=== PATIENT | female | born 1950 | race Caucasian/White ===

== ENCOUNTER 2020-10-02 10:22 | Outpatient (REF) | payer MEDICARE, SELFPAY | END 2020-10-02 10:23 | disposition home or self-care (01) | LOC: HO.HMGCLDS 10:22 | PROVIDERS: PCP Family Medicine; Visit Provider Internal Medicine | DX: Z20.828 Contact with and (suspected) exposure to other viral communicable diseases (principal) | CPT/HCPCS: C9803; U0003 ==

== ENCOUNTER 2020-12-18 10:06 | Outpatient (REF) | payer MEDICARE, SELFPAY | END 2020-12-18 10:07 | disposition home or self-care (01) | LOC: HO.LAB 10:06 | PROVIDERS: Visit Provider Internal Medicine | DX: Z20.822 Contact with and (suspected) exposure to COVID-19 (principal) | CPT/HCPCS: 36415; C9803; U0003; U0005 ==

== ENCOUNTER 2021-02-01 11:06 | Outpatient (REF) | payer MEDICARE, SELFPAY ==
[2021-02-01 14:29] LABS: Alanine Aminotransferase 12 U/L (0-31); Anion Gap 10 (12-20); Aspartate Amino Transferase 15 U/L (5-31); Blood Urea Nitrogen 13 mg/dL (9-16); Carbon Dioxide 31 mmol/L (22-29); Chloride 104 mmol/L (96-108); Estimated Glomerular Filt Rate > 60; Potassium 4.2 mmol/L (3.3-5.1); Sodium 141 mmol/L (135-145)
== END 2021-02-01 11:07 | disposition home or self-care (01) ==
LOC: HO.10HDL 11:06
PROVIDERS: Visit Provider Family Medicine
DX: I10 Essential (primary) hypertension (principal); E21.3 Hyperparathyroidism, unspecified; R11.0 Nausea
CPT/HCPCS: 36415; 80051; 82310; 82565; 84450; 84460; 84520

== ENCOUNTER 2021-04-04 12:23 | Day surgery (SDC) | payer MEDICARE, SELFPAY ==
--- NOTE | 2021-03-28 10:41 | CONS_ITS ---
DATE OF SERVICE: 04/04/2021 HISTORY OF PRESENT ILLNESS: This is a 70-year-old white female well known to me who was getting colonoscopy next week. This is a preprocedural consultation because of her many medical problems. This woman has a history of high cholesterol, depression, hyperparathyroidism (status post parathyroidectomy in 2011), irritable bowel syndrome with diarrhea, history of occasional urinary retention and urinary tract infections, GERD, cricopharyngeal achalasia, mild, and osteoporosis. More recently, she has had significant problems, which are of concern to everybody. In 2016, she had intracerebral bleed. The workup was negative, we could not figure out a reason. In 2017, she has seizure and she has been on Lamictal since that time. In 2018 and twice in 2019, she had again intracerebral bleeds, these were small, but accumulative in terms of their effect. Full Neurology evaluation revealed that the patient probably has cerebral amyloid angiopathy, which is an untreatable phenomenon. She is off all anticoagulants obviously. She has not allowed to take any nonsteroidals or aspirin and so far since April of 2020, she has had no recurrent bleeds. She sees Dr. Ortega in [place] as her neurologist. She has had unfortunately residual effects from these injuries with some cognitive decline. Most notably, short term memory loss, word finding problems, integrating her thought processes, and more recently inability to recognize colors and faces. In speaking with the patient, frustration is apparent. She has been on medication for depression, which is probably appropriate and MRIs and CTs have been reviewed by me. 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 She has recently seen Dr. Ortega ( I have reviewed his note). Her medications now are amlodipine, Prevacid, sertraline, Lamictal and vitamins. She has had some GERD even with Prevacid and she was advised on this. There was some question of peripheral vision loss, however I was unable to demonstrate that. Rarely, she gets headaches. She has had no recent seizures and she gets occasional lightheaded spells without falling. The biggest complaint is GERD with PPIs. Her sleep is poor. She has had no melena, chest pain, shortness of breath, or syncope. Rare dysphagia. Her urinary system is that she does get some occasional urge incontinence, but is not a major problem. Her other main complaint is she is off balance. Unfortunately, she has had no recent falls. PHYSICAL EXAMINATION: On examination, we find a pleasant white female, in no distress. Blood pressure 130/76, pulse 80, and weight 148. Conjunctivae pink. Sclerae white. Mucous membranes are moist. Neck veins are flat. Carotids are 2-. No bruits. Lungs are clear. Heart, normal sinus rhythm, rate 80, no murmurs. Abdomen is soft and nontender. There is no edema. Mild venous insufficiency. No peripheral vascular disease. Neuro examination shows peripheral vision seems okay. She has no nystagmus. EOMI. PERRL. She does have significant heel to toe abnormalities, although negative Romberg. She definitely demonstrates some ataxia. Extremities reveal no obvious motor or sensory reflex changes. Cognitive status is as mentioned before. DIAGNOSES: 1. Secondary encephalomalacia. 2. Gastroesophageal reflux disease. 3. Ataxia. 4. Status post epilepsy. 5. Cerebral amyloid angiopathy. 6. History of achalasia, although there are no aspiration problems. 7. Hypertension. 8. Depression. 9. High cholesterol. 10. Status post parathyroidectomy. PLAN: From medical standpoint, the patient has been relatively stable. She has had some ongoing cerebral issues. I do not believe these are contraindications to colonoscopy. I would keep her anesthesia as light as possible. She recently had lytes, BUN and creatinine, calcium, and SGPT, which were all within normal limits. I will follow her post procedure as needed. Thank you very much. MD SERGIO Arias/VIRGIL / [id number] [facility]ITAL[facility]
[2021-03-29 11:29] VITALS: BMI 26.7
--- NOTE | 2021-04-02 08:57 | P.CONAN_ITS ---
Documented by User: Medina Belinda 04/02/21 08:59 HPI - Anesthesia Eval Consult details Narrative: 71yo F for Upper Endoscopy and Colonoscopy Per T/C with neuro - OK to proceed with endo procedures. Had recent brain MRI with stable imaging. No speical considerations regarding anesthesia PCP cleared for procedures - states to keep anesthesia light [facility] Past Medical History Medical History (Updated 04/04/21 @ 14:01 by Elana Sims) Achalasia Ataxia Cerebral amyloid angiopathy Depression Elevated cholesterol GERD (gastroesophageal reflux disease) HTN (hypertension) Hx of irritable bowel syndrome Hx of osteoporosis Seizures Short-term memory loss Surgical History Surgical History (Updated 03/28/21 @ 15:24 by Zaida Jenkins) H/O colonoscopy History of esophagogastroduodenoscopy (EGD) Hx of parathyroidectomy Social History Social History Smoking Status: Former smoker Use of substances other than those prescribed or required for medical reasons: No Are you DNR?: No Advance Directives Information Provided: No Recently lost weight without trying: No Eating poorly because of decreased appetite: No Nutrition Risks: No Nutritional Risk Meds Allergies Allergy/AdvReac Type Severity Reaction Status Date / Time codeine [CODEINE] Allergy Intermediate DELIRIUM Verified 04/04/21 12:33 Home Medications Medication Instructions Recorded Confirmed Last Taken Type amlodipine 1 tab PO DAILY 03/29/21 03/29/21 04/04/21 07:00 History lamotrigine 1 tab PO BID 03/29/21 04/04/21 04/04/21 07:00 History pantoprazole 1 tab PO BID 03/29/21 03/29/21 Unknown History sertraline 1 tab PO DAILY 03/29/21 03/29/21 Unknown History Exam Exam Date and Time: April 02, 2021 0857 Height,Weight and Vital Signs: Height 5 ft 3 in Weight 68.492 kg Pertinent Lab Results Pertinent Lab Results: Laboratory Tests 08/02/19 02/01/21 08:40 10:40 WBC 6.2 Hgb 13.9 Hct 43.0 Plt Count 207 Sodium 141 Potassium 4.2 Chloride 104 Carbon Dioxide 31 H BUN 13 Creatinine 0.81 Assessment and Plan Assessment Anesthesia Assessment: Chart Reviewed Documented by User: Elana Sims 04/04/21 14:03 [facility] Past Medical History Medical History (Updated 04/04/21 @ 14:01 by Elana Sims) Achalasia Ataxia Cerebral amyloid angiopathy Depression Elevated cholesterol GERD (gastroesophageal reflux disease) HTN (hypertension) Hx of irritable bowel syndrome Hx of osteoporosis Seizures Short-term memory loss Family History Family history of problems with anesthesia: No Surgical History Surgical History (Updated 03/28/21 @ 15:24 by Zaida Jenkins) H/O colonoscopy History of esophagogastroduodenoscopy (EGD) Hx of parathyroidectomy History of Problems with Anesthesia: Yes (N&V. Conscious sedation in the past) Social History Social History Smoking Status: Former smoker Use of substances other than those prescribed or required for medical reasons: No Are you DNR?: No Advance Directives Information Provided: No Recently lost weight without trying: No Eating poorly because of decreased appetite: No Nutrition Risks: No Nutritional Risk Meds Allergies Allergy/AdvReac Type Severity Reaction Status Date / Time codeine [CODEINE] Allergy Intermediate DELIRIUM Verified 04/04/21 12:33 Home Medications Medication Instructions Recorded Confirmed Last Taken Type amlodipine 1 tab PO DAILY 03/29/21 03/29/21 04/04/21 07:00 History lamotrigine 1 tab PO BID 03/29/21 04/04/21 04/04/21 07:00 History pantoprazole 1 tab PO BID 03/29/21 03/29/21 Unknown History sertraline 1 tab PO DAILY 03/29/21 03/29/21 Unknown History Exam Height,Weight and Vital Signs: Vital Signs Temp Pulse Resp BP Pulse Ox 04/04/21 12:43 98.3 F 82 16 143/64 H 95 Airway Mallampati Class: II TM Dist: >3cm Neck ROM: Full Heart: RRR Lungs: CTAB Assessment and Plan Assessment Anesthesia Assessment: Anesthesia Plan Discussed and Chart Reviewed Final Anesthetic Review NPO: Yes ASA Class: III Final Preanesthetic Review: No Changes in Pt Med Stat, Meds/Allgs Chart Reviewed, Consent Obtained/Reviewed and Anes Risks/Benef Reviewed Patient Risk: Intermediate Procedure Risk: Low Assessment/Block/Sedation in SS: Assess/Block/Sedation-SS Anesthetic Plan Anesthetic Plan: MAC: Disposition: Standard PACU
[2021-04-04 12:43] VITALS: BP 143/64; PULSE 82; RESP 16; TEMP 36.8; O2SAT 95
[2021-04-04] MEDS: Lactated Ringers 1,000 ML 50 ML IV (12:46)
--- NOTE | 2021-04-04 13:57 | MHC.SHP ---
Pre-Procedural Eval Section A The patient is an INPATIENT: No Changes since office visit: No Cold of Flu in the past 2 weeks, No New Medical Problems, No Changes in Medication and No Patient answered all questions The History & Physical has been completed within 30 days and I have reviewed it.: Yes Section B Chief Complaint: reflux disease, Allergies: Allergies Allergy/AdvReac Type Severity Reaction Status Date / Time codeine [CODEINE] Allergy Intermediate DELIRIUM Verified 04/04/21 12:33 Plan I have reviewed the history and physical and performed a pertinent physical examination on my patient. No changes have occurred unless specified.
--- NOTE | 2021-04-04 14:50 | P.BOP_ITS ---
Brief Operative Note Date of Service: 04/04/21 Pre-op diagnosis: gerd, abnormal ct Post-op diagnosis: same Procedure: egd colon Surgeon: Alfred Tellez Anesthesia: MAC Was an Environmental Economist used for this Procedure?: No Estimated blood loss (mL): 5 Pathology: other (see path req) Condition: stable Disposition: PACU
[2021-04-04 14:51] VITALS: BP 134/75; PULSE 78; RESP 18; TEMP 36.3; O2SAT 99
[2021-04-04 15:06] VITALS: BP 140/66; PULSE 71; RESP 16; TEMP 36.3; O2SAT 97
--- NOTE | 2021-04-04 22:18 | OP_ITS ---
SURGEON: Alfred Tellez MD INDICATIONS: 1. Gastroesophageal reflux disease. 2. Abnormal CT scan of the colon. PREOPERATIVE DIAGNOSIS: POSTOPERATIVE DIAGNOSIS: PROCEDURE PERFORMED: 1. Upper endoscopy with biopsy. 2. Colonoscopy to the cecum with snare polypectomy. ESTIMATED BLOOD LOSS: COMPLICATIONS: ANESTHESIA: ASSISTANTS: SPECIMENS: MEDICATIONS: Monitored anesthesia care. DESCRIPTION OF PROCEDURE: History and physical was performed. The risks and benefits of the procedure were explained to the patient and informed consent was obtained. The patient was placed in the left lateral decubitus position. The Olympus video gastroscope was introduced into the esophagus, stomach, and duodenum. Examination was performed. The scope was removed. She was repositioned for colonoscopy. A digital rectal exam was performed and was found to be normal. The Olympus pediatric video colonoscope was introduced into the rectum and advanced to the cecum with mild difficulty due to sigmoid diverticulosis and a tortuous colon. Examination was performed. The scope was removed. She tolerated both procedures well and was taken to recovery area in stable condition. FINDINGS: UPPER ENDOSCOPY: 1. Esophagus: The esophagus was normal. There was a 5 cm hiatal hernia. Biopsies were obtained from the EG junction which did not show any esophagitis. 2. Stomach: Stomach showed no evidence of masses or ulcers. There were several benign-appearing polyps in the body, less than 10 mm consistent with fundic gland polyps. Biopsies were obtained from the polyps. Antral biopsies were obtained to rule out H pylori. 3. Duodenum: The bulb and second portion were normal. COLONOSCOPY: The terminal ileum was not examined. In the cecum was an 8 mm sessile polyp which was removed with a snare and recovered via suction. No other polyps were identified. The sigmoid was tortuous as noted above. There was extensive sigmoid diverticulosis with scattered diverticulosis throughout remainder of the colon. Retroflexed examination showed small internal hemorrhoids. There was some liquid stool and some stool balls limiting the examination, but exam was deemed adequate. The stool was washed and suctioned as best possible. The procedure was extended and difficult. IMPRESSION: 1. Hiatal hernia. 2. Gastric polyps. 3. Colon polyp. RECOMMENDATION: Follow up with the biopsy results. MD LUISA Betancur/VIRGIL / [id number] [facility]
== END 2021-04-04 15:59 | disposition home or self-care (01) ==
PROVIDERS: PCP Family Medicine; Visit Provider Internal Medicine Gastroenterology
PROC: (CPT 45385; principal; 2021-04-04 13:40)
DX: Z12.11 Encounter for screening for malignant neoplasm of colon (principal); D12.0 Benign neoplasm of cecum; K57.30 Diverticulosis of large intestine without perforation or abscess without bleeding; K64.8 Other hemorrhoids; K21.9 Gastro-esophageal reflux disease without esophagitis; K31.7 Polyp of stomach and duodenum; K44.9 Diaphragmatic hernia without obstruction or gangrene; Z79.899 Other long term (current) drug therapy; Z88.8 Allergy status to other drugs, medicaments and biological substances; Z87.891 Personal history of nicotine dependence
CPT/HCPCS: 45385; 43239; 88305; 88342

== ENCOUNTER 2021-09-17 15:25 | Outpatient (REF) | payer MEDICARE, SELFPAY ==
[2021-09-17 16:50] LABS: Free T4 (Free Thyroxine) 0.91 ng/dL (0.71-1.85); Thyroid Stimulating Hormone 0.89 uIU/mL (0.32-4.0)
== END 2021-09-17 15:26 | disposition home or self-care (01) ==
LOC: HO.LAB 15:25
PROVIDERS: Absent Provider Family Medicine; PCP Family Medicine; Visit Provider Psychiatry & Neurology Neurology
DX: R60.0 Localized edema (principal); R00.1 Bradycardia, unspecified; I62.9 Nontraumatic intracranial hemorrhage, unspecified
CPT/HCPCS: 36415; 84439; 84443

== ENCOUNTER 2021-09-19 09:44 | Outpatient (REF) | payer MEDICARE, SELFPAY ==
[2021-09-22 20:52] LABS: Lamotrigine Lamictal 8.5 mcg/mL (4.0-18.0)
== END 2021-09-19 09:45 | disposition home or self-care (01) ==
LOC: HO.LAB 09:44
PROVIDERS: PCP Family Medicine; Visit Provider Psychiatry & Neurology Neurology
DX: G40.909 Epilepsy, unspecified, not intractable, without status epilepticus (principal); Z79.899 Other long term (current) drug therapy
CPT/HCPCS: 36415; 80175

== ENCOUNTER 2021-10-29 08:38 | Emergency (ER) | payer MEDICARE, SELFPAY ==
--- NOTE | ~2021-10-29 | XR_ITS ---
EXAMINATION: XR ankle RT min 3V, XR foot RT min 3V CLINICAL INFORMATION: Reason for Exam pain s/p injury COMPARISON: None. TECHNIQUE: AP and oblique views of the right ankle. AP, lateral, and oblique views of the right foot. FINDINGS: Ankle mortise is intact. Distal tibia and fibula are normal. No widening of the ankle mortise. Talar dome intact. No soft tissue swelling. There is a fracture of the base of the fifth metatarsal. There is a transverse component at the proximal metadiaphysis as well is a longitudinal component that extends to the proximal articular surface. There is mild displacement, 2 to 3 mm. XR/XR ankle RT min 3V IMPRESSION: Acute fracture of the base of the fifth metatarsal including a transverse component as well as a longitudinal intra-articular component.
--- NOTE | ~2021-10-29 | XR_ITS ---
EXAMINATION: XR ankle RT min 3V, XR foot RT min 3V CLINICAL INFORMATION: Reason for Exam pain s/p injury COMPARISON: None. TECHNIQUE: AP and oblique views of the right ankle. AP, lateral, and oblique views of the right foot. FINDINGS: Ankle mortise is intact. Distal tibia and fibula are normal. No widening of the ankle mortise. Talar dome intact. No soft tissue swelling. There is a fracture of the base of the fifth metatarsal. There is a transverse component at the proximal metadiaphysis as well is a longitudinal component that extends to the proximal articular surface. There is mild displacement, 2 to 3 mm. XR/XR foot RT min 3V IMPRESSION: Acute fracture of the base of the fifth metatarsal including a transverse component as well as a longitudinal intra-articular component.
--- NOTE | 2021-10-29 09:36 | ED_ITS ---
HPI - Fall General Chief Complaint: Extremity Injury, Lower Stated Complaint: fell down stairs @ home (possible broken R foot) Time Seen by Provider: 10/29/21 09:22 Source: patient Mode of arrival: wheelchair Limitations: no limitations History of Present Illness HPI Narrative: 71-year-old female here with reports of fall down 3 stairs. Patient tells me so she slipped causing her left foot to rule inwards. She heard a loud crack. since then inability to bear weight due to pain. No numbness, tingling, warmth, swelling, fevers, chills. Patient is not on any anticoagulation. There was no head strike or loss of consciousness. Related Data Home Medications Medication Instructions Recorded Confirmed amlodipine 5 mg tablet 1 tab PO DAILY 03/29/21 03/29/21 lamotrigine 200 mg tablet 1 tab PO BID 03/29/21 04/04/21 pantoprazole 40 mg tablet,delayed 1 tab PO BID 03/29/21 03/29/21 release sertraline 25 mg tablet 1 tab PO DAILY 03/29/21 03/29/21 Previous Rx's Medication Instructions Recorded walker #1 ea 10/29/21 Allergies Allergy/AdvReac Type Severity Reaction Status Date / Time codeine [CODEINE] Allergy Intermediate DELIRIUM Verified 04/04/21 12:33 Review of Systems Review of Systems: Yes all other systems are reviewed and are negative Constitutional: Constitutional: Reports no additional constitutional complaints, Denies body ache(s), Denies chills, Denies fever(s), Denies headache(s) and Denies weakness Eyes: Eyes: Reports no additional eye complaints and Denies change in vision ENT: Reports system reviewed and no additional complaints, except as documented, Denies dizziness, Denies headache(s), Denies nasal congestion, Denies nasal discharge and Denies neck pain Cardiovascular: Cardiovascular: Reports no additional cardiovascular complaints, Denies chest pain, Denies leg edema and Denies dyspnea Respiratory: Respiratory: Reports no additional respiratory complaints, Denies cough and Denies dyspnea Gastrointestinal: Gastrointestinal: Reports no additional gastrointestinal complaints, Denies abdominal pain, Denies diarrhea, Denies nausea and Denies vomiting Genitourinary: Genitourinary: Reports no additional female genitourinary complaints and Denies urinary incontinence Musculoskeletal: Musculoskeletal: Reports no additional musculoskeletal complaints, Denies back pain, Reports arthralgias, Reports joint swelling, Reports limited range of motion, Denies neck pain, Denies numbness and Denies tingling Integumentary/Breasts: Skin/Breast: Reports system reviewed and no additional complaints, except as docu and Denies rash Neurologic: Reports system reviewed and no additional complaints, except as documented, Denies Abnormal speech present, Denies dizziness, Denies headache(s), Denies numbness, Denies tingling and Denies weakness PMFSH Past Medical History Attestation statement: The following information was validated with the patient. Source: old records reviewed and nursing notes reviewed Medical History Achalasia Ataxia Cerebral amyloid angiopathy Depression Elevated cholesterol GERD (gastroesophageal reflux disease) HTN (hypertension) Hx of irritable bowel syndrome Hx of osteoporosis Seizures Short-term memory loss Surgical History H/O colonoscopy History of esophagogastroduodenoscopy (EGD) Hx of parathyroidectomy Social History Social History Advance Directives: No Advance Directives Information Provided: No Physical Exam Vital Signs: Vital Signs: Last Vital Signs Temp 98.0 F 10/29/21 09:44 Pulse 77 10/29/21 09:44 Resp 16 10/29/21 09:44 BP 141/68 H 10/29/21 09:44 Pulse Ox 99 10/29/21 09:44 BMI result Body Mass Index 24.0 Const: General: cooperative, healthy appearing, comfortable and no acute distress Orientation/consciousness: patient oriented x3 Limitations: no limitations HENMT: Head: Yes normal to inspection Ears: hearing grossly normal bilaterally General nose exam: Normal external nose present Face and sinus: Yes normal facial exam Mouth: Normal oral and palatal mucosa present Throat: Yes posterior oropharynx normal Eyes: General: appearance normal, both eyes and all related structures Pupils: Equal, round and reactive pupils present Neck: Neck: Yes normal visual inspection Chest: Chest palpation & inspection: normal inspection of the chest Resp: Effort & Inspection: normal respiratory effort Auscultation: clear to auscultation bilaterally Cardio: Rate: regular rate Rhythm: regular rhythm Peripheral pulses: Peripheral pulses 2+ throughout GI: Inspection: Yes normal to inspection Palpation (GI): Soft to palpation and nontender Auscultation: normal bowel sounds Back/Spine/Pelvis: Thoracic/Lumbar Spine: thoracic and lumbar spine normal to inspection Skin: General skin exam: no rashes or lesions noted Neuro: General: patient oriented x3, no focal motor deficits and normal sensation to monofilament Cranial nerves: Yes Equal, round and reactive pupils present Cognition (Neuro): normal cognition Speech: No Abnormal speech present Gait exam (Neuro): Normal gait present Motor exam (neuro): 5/5 motor strength present throughout Extrem: Other: Right foot tenderness in the dorsal aspect over the 5th MTP General: Yes normal to inspection Course Course Course Narrative: 71-year-old female here after mechanical fall with reports of right foot pain with inability to bear weight due to pain. Will check x-rays 1000- X-ray shows a fracture at the base of the right 5th MTP that appears comminuted and intra-articular. D/w Geovani FITZGERALD who recommended posterior splint and NWB. patient was placed in a splint and given crutches for ambulation. She lives home with son and 2 grandchildren. Her bedroom and her bathroom are on the main floor so she does not like having difficulty at home. We discussed follow-up w [facility]. Reviewed worrisome signs and symptoms of when to return to the emergency department. Comfortable discharge home. 1100-Patient was unable to tolerate posterior splint and crutches and or with walker. Dr De La Cruz returned my page and informed me patient may be placed in a orthopedic boot. 1145-Patient able to ambulate steadily with orthopedic boot, crutches. Procedures Procedure Narrative Procedure Narrative: Orthopedic boot Orthopedic Splinting/Casting Injury #1: Side: right Lower Extremity Injury Location: foot Lower Extremity Immobilizer: posterior splint Other Orthopedic Equipment: crutches MDM - Fall Medical Records Attestation: I reviewed the patient's medical records. Lab Data Attestation: I reviewed the patient's lab results. Imaging Data foot/ankle x-ray right: Attestation: I personally reviewed and interpreted this imaging study as follows: Radiologist's impression: [id number] [place] [id number] XRay Report Signed Patient: Annika Hammond MR#: [id number] : 1950 Acct:[id number] Age/Sex: 71 / F ADM Date: 10/29/21 Loc: HO.ED Attending Dr: Ordering Physician: Dalila Carreon MD Date of Service: 10/29/21 Procedure(s): XR ankle RT min 3V Accession Number(s): [id number] cc: Dalila Carreon MD~ EXAMINATION: XR ankle RT min 3V, XR foot RT min 3V CLINICAL INFORMATION: Reason for Exam pain s/p injury COMPARISON: None. TECHNIQUE: AP and oblique views of the right ankle. AP, lateral, and oblique views of the right foot. FINDINGS: Ankle mortise is intact. Distal tibia and fibula are normal. No widening of the ankle mortise. Talar dome intact. No soft tissue swelling. There is a fracture of the base of the fifth metatarsal. There is a transverse component at the proximal metadiaphysis as well is a longitudinal component that extends to the proximal articular surface. There is mild displacement, 2 to 3 mm. XR/XR ankle RT min 3V IMPRESSION: Acute fracture of the base of the fifth metatarsal including a transverse component as well as a longitudinal intra-articular component. ? Discharge Plan Discharge Clinical Impression: Foot fracture, right Qualifiers: Encounter type: initial encounter Fracture type: closed Qualified Code(s): S92.901A - Unspecified fracture of right foot, initial encounter for closed fracture Patient Disposition: Home, Self-Care Instructions: Foot Fracture in Adults (ED) Additional Instructions: Ice, elevation Tylenol for pain Boot for walking, remove while resting Call orthopedics today for an appointment this week Prescriptions: New (DME) walker Misc See Rx Instructions .Route Qty: 1 RF: 0 No Action lamotrigine 200 mg tablet 1 tab PO BID RF: 0 amlodipine 5 mg tablet 1 tab PO DAILY RF: 0 pantoprazole 40 mg tablet,delayed release (DR/EC) 1 tab PO BID RF: 0 sertraline 25 mg tablet 1 tab PO DAILY RF: 0 Referrals: Dejon De La Cruz MD [Physician] - 5 days Interventions: ED Discharge Assessment Last Done: 10/29/21 11:30 Discharge Date/Time: 10/29/21 11:34
[2021-10-29 09:44] VITALS: BP 141/68; PULSE 77; RESP 16; TEMP 36.7; O2SAT 99; BMI 24.0
== END 2021-10-29 11:34 | disposition home or self-care (01) ==
PROVIDERS: Emergency Provider Emergency Medicine; PCP Family Medicine
DX: S92.351A Displaced fracture of fifth metatarsal bone, right foot, initial encounter for closed fracture (principal); I10 Essential (primary) hypertension; W10.9XXA Fall (on) (from) unspecified stairs and steps, initial encounter; Y93.9 Activity, unspecified; Y92.9 Unspecified place or not applicable; Y99.9 Unspecified external cause status
CPT/HCPCS: 73610; 73630; 99284

== ENCOUNTER → 2021-11-01 12:47 | Outpatient (BNVA) | payer MEDICARE, SELFPAY | PROVIDERS: PCP Family Medicine; Visit Provider Physician Assistant | DX: S92.351A Displaced fracture of fifth metatarsal bone, right foot, initial encounter for closed fracture (principal) | CPT/HCPCS: 99212 ==

== ENCOUNTER 2021-11-08 10:18 | Outpatient (REF) | payer MEDICARE, SELFPAY ==
--- NOTE | ~2021-11-08 | XR_ITS ---
EXAMINATION: XR CHEST CLINICAL INFORMATION: Right anterior rib pain and right upper quadrant pain. COMPARISON: Multiple prior radiographs, the most recent on 07/17/2018 TECHNIQUE: 2 views of the chest were obtained. FINDINGS: The heart is normal in size. The cardiomediastinal and hilar contours are within normal limits. A rounded density which projects over the spine and heart is most consistent with a moderate-sized hiatal hernia. Streaky bibasilar opacities suggest atelectasis. There is no large effusion or pneumothorax. No displaced rib fractures identified. XR/XR chest 2V IMPRESSION: Minimal bibasilar atelectasis. No displaced rib fractures identified. Likely moderate-sized hiatal hernia.
[2021-11-08 10:35] LABS: MANUAL DIFF FLAG NO
[2021-11-08 10:54] LABS: Basophils Absolute Auto 0.1 X10*3/uL (0.0-0.2); Basophils Percent Auto 0.6 % (0-2); Eosinophils Absolute Auto 0.2 X10*3/uL (0.0-0.4); Eosinophils Percent Auto 1.8 % (0-4); Hemoglobin 13.7 g/dl (12.0-16.0); Imm Gran Abs Auto 0.03 X10*3/uL (0.00-0.03); Imm Gran Pct Auto 0.4 % (0.0-0.4); Lymphocytes Absolute Auto 1.3 X10*3/uL (1.2-4.9); Lymphocytes Percent Auto 15.5 % (20-40); Mean Corpuscular HGB Conc 31.9 g/dl (31.0-35.0); Mean Corpuscular Hemoglobin 28.8 pg (27.0-33.0); Mean Corpuscular Volume 90.3 fL (80.0-98.0); Mean Platelet Volume 9.4 fL (9.4-12.3); Monocytes Absolute Auto 0.5 X10*3/uL (0.1-1.2); Monocytes Percent Auto 6.1 % (2-11); Neutrophils Absolute Auto 6.5 x10*3/uL (2.0-8.3); Neutrophils Percent Auto 75.6 % (45-73); Platelet Count 261 X10*3/uL (160-400); Red Blood Count 4.76 X10*6/uL (4.20-5.50); Red Cell Distribution Width 13.3 % (11.0-16.0); White Blood Count 8.5 X10*3/uL (4.8-10.8)
[2021-11-08 11:15] LABS: Alanine Aminotransferase 14 U/L (0-31); Aspartate Amino Transferase 16 U/L (5-31)
== END 2021-11-08 10:19 | disposition home or self-care (01) ==
LOC: HO.XRAY 10:18
PROVIDERS: PCP Family Medicine; Visit Provider Family Medicine
DX: R07.81 Pleurodynia (principal); R10.11 Right upper quadrant pain
CPT/HCPCS: 36415; 71046; 84450; 84460; 85025

== ENCOUNTER 2021-12-10 07:40 | Outpatient (REF) | payer MEDICARE, SELFPAY ==
--- NOTE | ~2021-12-10 | XR_ITS ---
EXAMINATION: XR FOOT, RIGHT CLINICAL INFORMATION: Follow-up fracture COMPARISON: Previous x-ray 10/29/2021 TECHNIQUE: AP, lateral, and oblique views of the right foot. FINDINGS: There is a healing nondisplaced fracture of the distal shaft of the fourth metatarsal bone with surrounding bony callus formation. There is a comminuted fracture of the base of the fifth metatarsal bone extending to the fifth MTT joint. Fracture lines are still seen. There is a surrounding bony callus formation. No other fracture is seen. There is arthritis at the navicular cuneiform joints. Joint spaces are otherwise normal. Soft tissues are normal. XR/XR foot RT min 3V IMPRESSION: Healing fractures of the fourth and fifth metatarsal bones.
== END 2021-12-10 07:41 | disposition home or self-care (01) ==
LOC: HO.HOSX 07:40
PROVIDERS: Visit Provider Physician Assistant
DX: M79.673 Pain in unspecified foot (principal)
CPT/HCPCS: 73630; 99212

== ENCOUNTER 2022-04-17 15:36 | Outpatient (REF) | payer MEDICARE, SELFPAY ==
[2022-04-17 15:49] LABS: MANUAL DIFF FLAG NO
[2022-04-17 15:56] LABS: Basophils Absolute Auto 0.1 X10*3/uL (0.0-0.2); Basophils Percent Auto 1.1 % (0-2); Eosinophils Absolute Auto 0.2 X10*3/uL (0.0-0.4); Eosinophils Percent Auto 2.5 % (0-4); Hematocrit 40.4 % (37.0-47.0); Hemoglobin 12.8 g/dl (12.0-16.0); Imm Gran Abs Auto 0.02 X10*3/uL (0.00-0.03); Imm Gran Pct Auto 0.3 % (0.0-0.4); Lymphocytes Absolute Auto 2.1 X10*3/uL (1.2-4.9); Lymphocytes Percent Auto 28.9 % (20-40); Mean Corpuscular HGB Conc 31.7 g/dl (31.0-35.0); Mean Corpuscular Hemoglobin 27.7 pg (27.0-33.0); Mean Corpuscular Volume 87.4 fL (80.0-98.0); Mean Platelet Volume 9.6 fL (9.4-12.3); Monocytes Absolute Auto 0.7 X10*3/uL (0.1-1.2); Monocytes Percent Auto 9.1 % (2-11); Neutrophils Absolute Auto 4.2 x10*3/uL (2.0-8.3); Neutrophils Percent Auto 58.1 % (45-73); Platelet Count 222 X10*3/uL (160-400); Red Blood Count 4.62 X10*6/uL (4.20-5.50); Red Cell Distribution Width 13.7 % (11.0-16.0); White Blood Count 7.1 X10*3/uL (4.8-10.8)
[2022-04-17 16:21] LABS: Alanine Aminotransferase 16 U/L (0-31); Anion Gap 11 (12-20); Aspartate Amino Transferase 17 U/L (5-31); Carbon Dioxide 29 mmol/L (22-29); Chloride 106 mmol/L (96-108); Estimated Glomerular Filt Rate 58; Magnesium 2.4 mg/dL (1.6-2.6); Potassium 4.6 mmol/L (3.3-5.1); Sodium 141 mmol/L (135-145)
== END 2022-04-17 15:37 | disposition home or self-care (01) ==
LOC: HO.LAB 15:36
PROVIDERS: PCP Family Medicine; Visit Provider Family Medicine
DX: I10 Essential (primary) hypertension (principal); R51.9 Headache, unspecified; R42 Dizziness and giddiness
CPT/HCPCS: 36415; 80051; 82550; 82565; 83735; 84450; 84460; 85025

== ENCOUNTER 2022-12-05 12:04 | Emergency (ER) | payer MEDICARE, SELFPAY ==
--- NOTE | ~2022-12-05 | XR_ITS ---
EXAMINATION: LEFT SHOULDER, LEFT ELBOW AND LEFT HAND AND WRIST CLINICAL INFORMATION: Fall TECHNIQUE: 3 views left shoulder, 3 views left elbow, 4 views left wrist COMPARISON: Chest radiograph 11/08/2021 FINDINGS: Left shoulder: No significant bone, joint or soft tissue abnormality is seen. Left elbow: No significant bone, joint or soft tissue abnormality is seen. Left hand and wrist: There is an acute intra-articular fracture of the distal lateral radius. No significant fracture fragment displacement is seen. Marked degenerative changes are present at the first CMC joint with joint space narrowing, sclerosis and osteophytes. No other fractures are seen. XR/XR hand wrist LT IMPRESSION: 1. Acute intra-articular fracture of the distal lateral radius. 2. Degenerative changes at the first CMC joint.
--- NOTE | ~2022-12-05 | XR_ITS ---
EXAMINATION: LEFT SHOULDER, LEFT ELBOW AND LEFT HAND AND WRIST CLINICAL INFORMATION: Fall TECHNIQUE: 3 views left shoulder, 3 views left elbow, 4 views left wrist COMPARISON: Chest radiograph 11/08/2021 FINDINGS: Left shoulder: No significant bone, joint or soft tissue abnormality is seen. Left elbow: No significant bone, joint or soft tissue abnormality is seen. Left hand and wrist: There is an acute intra-articular fracture of the distal lateral radius. No significant fracture fragment displacement is seen. Marked degenerative changes are present at the first CMC joint with joint space narrowing, sclerosis and osteophytes. No other fractures are seen. XR/XR elbow LT min 3V IMPRESSION: 1. Acute intra-articular fracture of the distal lateral radius. 2. Degenerative changes at the first CMC joint.
--- NOTE | ~2022-12-05 | CT_ITS ---
EXAMINATION: CT CHEST WITHOUT IV CONTRAST CT ABDOMEN AND PELVIS WITHOUT IV CONTRAST CLINICAL INFORMATION: History of trauma. Fall 3 days ago. COMPARISON: None TECHNIQUE: Noncontrast multidetector CT imaging examination of the chest, abdomen and pelvis was performed. Axial images are displayed at 0.6 mm and 5 mm slice thickness. Coronal and sagittal reformatted images were generated at the technologist's workstation and submitted for review. This CT examination was performed using dose optimization techniques as appropriate, variously including the following: *Automated exposure control *Adjustment of mA and/or kV according to patient size (this includes techniques or standardized protocols for targeted exams where dose is matched to indication/reason for exam; i.e. extremities or head) *Use of iterative reconstruction technique DLP: 251 mGy-cm for the chest CT and 497 mGy-cm for the abdomen/pelvis CT. FINDINGS: CHEST - LUNGS AND PLEURA: Trachea and central airways are widely patent and normal in caliber. No pulmonary consolidation, pneumothorax or pleural effusion. There are few scattered opacities of mild atelectasis in each lung. No evidence of a suspicious pulmonary nodule or mass. MEDIASTINUM/LOWER NECK: The heart size is normal. No pericardial effusion. Pulmonary artery trunk is normal in size. Mild atherosclerosis of the thoracic aorta without aneurysm. Large hiatal hernia. CORONARY ARTERY CALCIFICATION: No significant coronary artery calcification is detected. LYMPHATICS: No pathologic sized axillary, hilar or mediastinal lymph nodes. CHEST WALL/BONES: No chest wall hematoma. Bones are diffusely osteoporotic with L1 vertebral body having density of approximately 60 Hounsfield units. Mild and moderate discovertebral degenerative changes of the visualized lower cervical and thoracic spine. No fracture or malalignment. Sternum is intact. ABDOMEN AND PELVIS - HEPATOBILIARY: Liver has normal size, contour and attenuation. Gallbladder is unremarkable. No intrahepatic or extrahepatic bile duct dilatation. PANCREAS: No edema, mass or pancreatic ductal dilatation. SPLEEN: Normal. ADRENAL GLANDS: Left adrenal gland is mildly enlarged. On the coronal reformatted images, there appears to be a 1.3 cm smoothly marginated nodule of - 1 HU attenuation, consistent with lipid rich adenoma. No adrenal imaging follow-up is recommended. KIDNEYS AND URETERS: Kidneys are normal in size. Small, 0.2 cm calyceal stone of the lower pole of the left kidney. Also, there appears to be a punctate calyceal stone of the mid left kidney. No large renal stones or hydronephrosis. 6 cm simple cyst of the left kidney. No renal imaging follow-up is recommended for simple cysts, if asymptomatic. BOWEL AND PERITONEUM: Large hiatal hernia of the stomach. No dilated bowel loops. Multiple diverticula of the descending and sigmoid colon without diverticulitis. No abdominal free fluid or free air. ABDOMINAL WALL: Unremarkable. VESSELS: Atherosclerotic calcification of the abdominal aorta without aneurysm. No retroperitoneal hematoma. LYMPH NODES: No pathologic sized lymph nodes in the abdomen or pelvis. No inguinal lymphadenopathy. BLADDER AND PELVIC VISCERA: Urinary bladder is unremarkable. Uterus is surgically absent. No adnexal mass. No pelvic free fluid. MUSCULOSKELETAL: There is rotatory levoscoliosis of the degenerated lumbar spine. Pelvic bones and proximal femurs are intact. No soft tissue hematoma. CT/CT abdomen pelvis wo IV con IMPRESSION: * No acute traumatic pathology in the chest, abdomen or pelvis. * Large hiatal hernia. 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 * There appear to be two very small stones of the left kidney. No ureteral stones or hydronephrosis. * Colonic diverticulosis without diverticulitis.
--- NOTE | ~2022-12-05 | CT_ITS ---
EXAMINATION: CT BRAIN AND CT CERVICAL SPINE WITHOUT CONTRAST. CLINICAL INFORMATION: Status post fall x3 days. COMPARISON: 07/17/2018 TECHNIQUE: 5 mm thin axial and reformatted 2 mm thin sagittal coronal images of brain were obtained. Axial 3 mm thin and reformatted 2 mm thin sagittal and coronal images of cervical spine were obtained. This CT examination was performed using dose optimization technique as appropriate, variously including the following: Automated exposure control Adjustment of MA and/or KV according to patient size(this includes techniques or standardized protocols for targeted exams where dose is matched to indication/reason for exam; extremities or head. Use of iterative reconstruction techniques. 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 There is no acute intra-axial, extra-axial bleed, masses or midline shift. The lateral ventricles are symmetrical and enlarged. No edema seen. Bone windows reveal no calvarial abnormality. There is no scalp soft tissue abnormality. Bilateral paranasal sinuses and mastoid air cells are well-aerated. Cervical spine: There is mild straightening of cervical lordosis. The vertebral heights, alignment are normal. There is loss of C5-C6 and C6-C7 disc heights with mild ventral and posterior spondylosis. The craniovertebral junction and the CBD 1-C2 alignment is normal. No visible acute fracture, dislocation seen. There is mild right T1-T2 and T2-T3 facet joint arthropathy. The prevertebral and paravertebral soft tissues are normal. The thyroid lobes are symmetrical. Central trachea and the bronchi widely patent. The airway appears widely patent. The lung apices are clear. CT/CT cervical spine wo IV con IMPRESSION: No acute intracranial process seen. There is a right posterior parietal lobe encephalomalacia new since the previous CT brain exam 07/17/2018. Degenerative disc changes C5-C6 disc level with spondylosis. No visible acute fracture or dislocation in cervical spine.
--- NOTE | ~2022-12-05 | XR_ITS ---
EXAMINATION: LEFT SHOULDER, LEFT ELBOW AND LEFT HAND AND WRIST CLINICAL INFORMATION: Fall TECHNIQUE: 3 views left shoulder, 3 views left elbow, 4 views left wrist COMPARISON: Chest radiograph 11/08/2021 FINDINGS: Left shoulder: No significant bone, joint or soft tissue abnormality is seen. Left elbow: No significant bone, joint or soft tissue abnormality is seen. Left hand and wrist: There is an acute intra-articular fracture of the distal lateral radius. No significant fracture fragment displacement is seen. Marked degenerative changes are present at the first CMC joint with joint space narrowing, sclerosis and osteophytes. No other fractures are seen. XR/XR shoulder LT min 2V IMPRESSION: 1. Acute intra-articular fracture of the distal lateral radius. 2. Degenerative changes at the first CMC joint.
--- NOTE | 2022-12-05 12:16 | ED_ITS ---
HPI - Fall General Chief Complaint: Fall <LIA Fleming Last Filed: 12/05/22 12:33> Stated Complaint: L Arm Hand Injury S/P Fall T-2 <LIA Fleming - Last Filed: 12/05/22 12:33> Time Seen by Provider: 12/05/22 14:57 <LIA Fleming - Last Filed: 12/05/22 12:33> Source: patient and family <LIA Gay Last Filed: 12/05/22 16:51> Mode of arrival: ambulatory <LIA Gay Last Filed: 12/05/22 16:51> Limitations: no limitations <LIA Gay Last Filed: 12/05/22 16:51> History of Present Illness HPI Narrative: 72-year-old female since the ER for evaluation of left sided chest pain and left wrist pain after she sustained a mechanical fall 3 days ago. She states she was staying with her sister in [place] when she missed the bottom step and fell down. She states she put her hand up to protect her head and hit her left hand on the ground. She had immediate pain to the left wrist and left chest. She has been elevating and applying ice. She has been taking Tylenol. She denies any abdominal pain, nausea, vomiting or diarrhea. No headaches or neck pain. She is right-hand dominant. She reports minimal pain in the left wrist at rest but increases with any activity or movement. She denies any numbness or tingling. Now that she came back home she came to the ER for further evaluation of her injuries. Not on a/c. <LIA Gay - Last Filed: 12/05/22 16:51> MD complaint: fall <LIA Gay Last Filed: 12/05/22 16:51> Onset (ago): day(s) (3) <LIA Gay Last Filed: 12/05/22 16:51> Fall from: standing <LIA Gay Last Filed: 12/05/22 16:51> Fall witnessed: yes, by family <LIA Gay Last Filed: 12/05/22 16:51> Place fall occurred: other <LIA Gay - Last Filed: 12/05/22 16:51> Loss of consciousness: none <LIA Gay - Last Filed: 12/05/22 16:51> Prolonged down time: no <LIA Gay - Last Filed: 12/05/22 16:51> Symptoms prior to fall: none <LIA Gay - Last Filed: 12/05/22 16:51> Context: tripped/slipped <LIA Gay - Last Filed: 12/05/22 16:51> Location of injury: head and chest <LIA Gay - Last Filed: 12/05/22 16:51> Location of injury - extremities: left: hand <LIA Gay - Last Filed: 12/05/22 16:51> Severity: moderate <LIA Gay Last Filed: 12/05/22 16:51> Severity scale (1-10): 6 <LIA Gay - Last Filed: 12/05/22 16:51> Quality: aching <LIA Gay - Last Filed: 12/05/22 16:51> Associated symptoms (after fall): denies <LIA Gay - Last Filed: 12/05/22 16:51> Related Data Home Medications: Home Medications Medication Instructions Recorded Confirmed amlodipine 5 mg tablet 1 tab PO DAILY 03/29/21 03/29/21 lamotrigine 200 mg tablet 1 tab PO BID 03/29/21 04/04/21 pantoprazole 40 mg tablet,delayed 1 tab PO BID 03/29/21 03/29/21 release sertraline 25 mg tablet 1 tab PO DAILY 03/29/21 03/29/21 Previous Rx's Medication Instructions Recorded walker #1 ea 10/29/21 <LIA Fleming - Last Filed: 12/05/22 12:33> Allergies/Adverse Reactions: Allergies Allergy/AdvReac Type Severity Reaction Status Date / Time codeine [CODEINE] Allergy Intermediate DELIRIUM Verified 12/10/21 08:59 <LIA Fleming - Last Filed: 12/05/22 12:33> Review of Systems Review of Systems: Yes all other systems are reviewed and are negative <LIA Gay - Last Filed: 12/05/22 16:51> [facility] Past Medical History Medical History: Medical History Achalasia Ataxia Cerebral amyloid angiopathy Depression Elevated cholesterol GERD (gastroesophageal reflux disease) HTN (hypertension) Hx of irritable bowel syndrome Hx of osteoporosis Seizures Short-term memory loss <LIA Fleming - Last Filed: 12/05/22 12:33> Surgical History: Surgical History H/O colonoscopy History of esophagogastroduodenoscopy (EGD) Hx of parathyroidectomy <LIA Fleming - Last Filed: 12/05/22 12:33> Social History Social History: Social History Smoked in Last 30 Days: No Use of substances other than those prescribed or required for medical reasons: No Advance Directives: No Advance Directives Information Provided: No Current occupational status: retired Current occupation: rt hand <LIA Fleming - Last Filed: 12/05/22 12:33> Physical Exam Vital Signs: Vital Signs: Last Vital Signs Temp 97.9 F 12/05/22 12:18 Pulse 76 12/05/22 13:40 Resp 16 12/05/22 13:40 BP 156/90 H 12/05/22 13:40 Pulse Ox 100 12/05/22 13:40 O2 Del Method 12/05/22 13:40 BMI result Body Mass Index 24.1 <LIA Fleming - Last Filed: 12/05/22 12:33> Vital Signs: Last Vital Signs Temp 97.9 F 12/05/22 12:18 Pulse 76 12/05/22 13:40 Resp 16 12/05/22 13:40 BP 156/90 H 12/05/22 13:40 Pulse Ox 100 12/05/22 13:40 O2 Del Method 12/05/22 13:40 BMI result Body Mass Index 24.1 <LIA Gay - Last Filed: 12/05/22 16:51> Appearance: Alert. Oriented X3. No acute distress. Eyes: Pupils equal, round and reactive to light. ENT: Pharynx normal. Neck: Normal inspection. Neck supple. No midline tenderness. CVS: Normal heart rate and rhythm. Pulses normal. Respiratory: No respiratory distress. Breath sounds normal. Left sided anterior chest wall tenderness. Abdomen: Soft and nontender. +BS x4 Skin: Skin warm and dry. Normal skin color. Normal skin turgor. No rashes. Extremities: No lower extremity edema. Left wrist with moderate diffuse swelling and tenderness along the distal radius and proximal hand. no stuff box tenderness. normal ROM of the digits. NV intact distally. 2+ radial pulse. Neuro: Oriented X 3. No motor deficit. No sensory deficit. <LIA Gay - Last Filed: 12/05/22 16:51> Course Course Course Narrative: RME 12:15PM - 72yoF c PMHx of ICH c short term memory loss presenting to the ED c c/o left rib cage/chest wall pain, left shoulder/left arm/left hand and wrist pain after she had a mechanical fall approximately 2 days ago where she was walking down the steps and she missed the last step per her sister. Patient reports she does not recall actually happened she was unsure if she was dizzy at the time although sister says that she was not dizzy. There was no prolonged down time. She denies head injury loss of consciousness. On exam she is alert and orientated x3. No focal deficits are noted. Normal steady gait. She does have moderate tenderness to the left chest wall lateral/anterior aspect. No crepitus or obvious signs of trauma. Not consistent with flail chest. Lungs are clear to auscultation. CV RRR. No cervical or lumbar/thoracic tenderness noted. No step-offs or deformities are noted. Patient with moderate tenderness to the left hand/wrist with moderate soft tissue swelling and at the distal/mid aspect of the forearm. Mild tenderness to left shoulder. No obvious ligamentous or tendon injury noted. Patient appears the have a left wrist fracture although no large deformity noted. Plan: labs, x-ray of left shoulder/left elbow/left hand and wrist, CT scan of brain, CT cervical spine, Chest CT and abd/pelvis without IV contrast and re-evaluate. Patient will be sent back to the waiting room to be evaluated in the ED. <LIA Fleming - Last Filed: 12/05/22 12:33> Reevaluation(s) Reevaluation #1: CT scans without acute traumatic injuries. XR Acute intra-articular fracture of the distal lateral radius. Thumb spice splint placed in adequate positioning. Stable for d/c home with ortho follow up. <LIA Gay - Last Filed: 12/05/22 16:51> Procedures Orthopedic Splinting/Casting Injury #1: Side: left <LIA aGy - Last Filed: 12/05/22 16:51> Upper Extremity Injury Location: wrist <LIA Gay Last Filed: 12/05/22 16:51> Upper Extremity Immobilizer: thumb spica <LIA Gay - Last Filed: 12/05/22 16:51> Medical Decision Making Differential Diagnosis Differential Diagnoses: The differential diagnosis associated with the presentation includes <LIA Gay - Last Filed: 12/05/22 16:51> Wrist fracture, hand fracture, less likely ICH, traumatic neck injury, broken ribs chest contusion, pulmonary contusion, liver lac <LIA Gay - Last Filed: 12/05/22 16:51> Lab Data MDM Lab Attestation statement: I reviewed the patient's lab results. <LIA Gay - Last Filed: 12/05/22 16:51> Result Diagrams: 12/05/22 13:24 12/05/22 13:24 <LIA Fleming - Last Filed: 12/05/22 12:33> Labs: Lab Results 12/05/22 12/05/22 12/05/22 Range/Units 13:24 13:24 13:24 WBC 7.0 (4.8-10.8) X10*3/uL RBC 4.88 (4.20-5.50) X10*6/uL Hgb 13.6 (12.0-16.0) g/dl Hct 41.7 (37.0-47.0) % MCV 85.5 (80.0-98.0) fL MCH 27.9 (27.0-33.0) pg MCHC 32.6 (31.0-35.0) g/dl RDW 14.2 (11.0-16.0) % Plt Count 210 (160-400) X10*3/uL MPV 9.4 (9.4-12.3) fL Immature Gran % (Auto) 0.4 (0.0-0.4) % Neut % (Auto) 63.0 (45-73) % Lymph % (Auto) 25.8 (20-40) % [place] % (Auto) 8.3 (2-11) % Eos % (Auto) 1.6 (0-4) % Baso % (Auto) 0.9 (0-2) % Lymph # (Auto) 1.8 (1.2-4.9) X10*3/uL [place] # (Auto) 0.6 (0.1-1.2) X10*3/uL Eos # (Auto) 0.1 (0.0-0.4) X10*3/uL Baso # (Auto) 0.1 (0.0-0.2) X10*3/uL Abs Immat Gran (auto) 0.03 (0.00-0.03) X10*3/uL Absolute Neuts (auto) 4.4 (2.0-8.3) x10*3/uL Absolute Nucleated RBC 0.000 (0.0-0.012) X10*3/uL Nucleated RBC % (auto) 0.0 (0.0-0.2) /100WBC PT 10.6 (10.0-13.1) SEC INR 0.9 (0.9-1.1) Sodium 141 (135-145) mmol/L Potassium 4.5 (3.3-5.1) mmol/L Chloride 105 (96-108) mmol/L Carbon Dioxide 29 (22-29) mmol/L Anion Gap 12 (12-20) BUN 14 (9-16) mg/dL Creatinine 0.83 (0.5-1.4) mg/dL Estim Creat Clear Calc 55.1 Estimated GFR > 60 Random Glucose 96 (60-115) mg/dL Calcium 9.7 D (8.4-10.2) mg/dL Magnesium 2.2 (1.6-2.6) mg/dL Total Bilirubin 0.4 (0.0-1.0) mg/dL AST 15 (5-31) U/L ALT 12 (0-31) U/L Alkaline Phosphatase 118 H (39-117) U/L Total Creatine Kinase 39 (26-140) U/L Troponin I High Sens (<3.5-17.0) ng/L Total Protein 7.3 (6.5-8.0) g/dL Albumin 4.4 (3.5-5.0) g/dL 12/05/22 Range/Units 13:24 WBC (4.8-10.8) X10*3/uL RBC (4.20-5.50) X10*6/uL Hgb (12.0-16.0) g/dl Hct (37.0-47.0) % MCV (80.0-98.0) fL MCH (27.0-33.0) pg MCHC (31.0-35.0) g/dl RDW (11.0-16.0) % Plt Count (160-400) X10*3/uL MPV (9.4-12.3) fL Immature Gran % (Auto) (0.0-0.4) % Neut % (Auto) (45-73) % Lymph % (Auto) (20-40) % [place] % (Auto) (2-11) % Eos % (Auto) (0-4) % Baso % (Auto) (0-2) % Lymph # (Auto) (1.2-4.9) X10*3/uL [place] # (Auto) (0.1-1.2) X10*3/uL Eos # (Auto) (0.0-0.4) X10*3/uL Baso # (Auto) (0.0-0.2) X10*3/uL Abs Immat Gran (auto) (0.00-0.03) X10*3/uL Absolute Neuts (auto) (2.0-8.3) x10*3/uL Absolute Nucleated RBC (0.0-0.012) X10*3/uL Nucleated RBC % (auto) (0.0-0.2) /100WBC PT (10.0-13.1) SEC INR (0.9-1.1) Sodium (135-145) mmol/L Potassium (3.3-5.1) mmol/L Chloride (96-108) mmol/L Carbon Dioxide (22-29) mmol/L Anion Gap (12-20) BUN (9-16) mg/dL Creatinine (0.5-1.4) mg/dL Estim Creat Clear Calc Estimated GFR Random Glucose (60-115) mg/dL Calcium (8.4-10.2) mg/dL Magnesium (1.6-2.6) mg/dL Total Bilirubin (0.0-1.0) mg/dL AST (5-31) U/L ALT (0-31) U/L Alkaline Phosphatase (39-117) U/L Total Creatine Kinase (26-140) U/L Troponin I High Sens < 3.5 (<3.5-17.0) ng/L Total Protein (6.5-8.0) g/dL Albumin (3.5-5.0) g/dL <LIA Fleming - Last Filed: 12/05/22 12:33> Lab Results 12/05/22 12/05/22 12/05/22 Range/Units 13:24 13:24 13:24 WBC 7.0 (4.8-10.8) X10*3/uL RBC 4.88 (4.20-5.50) X10*6/uL Hgb 13.6 (12.0-16.0) g/dl Hct 41.7 (37.0-47.0) % MCV 85.5 (80.0-98.0) fL MCH 27.9 (27.0-33.0) pg MCHC 32.6 (31.0-35.0) g/dl RDW 14.2 (11.0-16.0) % Plt Count 210 (160-400) X10*3/uL MPV 9.4 (9.4-12.3) fL Immature Gran % (Auto) 0.4 (0.0-0.4) % Neut % (Auto) 63.0 (45-73) % Lymph % (Auto) 25.8 (20-40) % [place] % (Auto) 8.3 (2-11) % Eos % (Auto) 1.6 (0-4) % Baso % (Auto) 0.9 (0-2) % Lymph # (Auto) 1.8 (1.2-4.9) X10*3/uL [place] # (Auto) 0.6 (0.1-1.2) X10*3/uL Eos # (Auto) 0.1 (0.0-0.4) X10*3/uL Baso # (Auto) 0.1 (0.0-0.2) X10*3/uL Abs Immat Gran (auto) 0.03 (0.00-0.03) X10*3/uL Absolute Neuts (auto) 4.4 (2.0-8.3) x10*3/uL Absolute Nucleated RBC 0.000 (0.0-0.012) X10*3/uL Nucleated RBC % (auto) 0.0 (0.0-0.2) /100WBC PT 10.6 (10.0-13.1) SEC INR 0.9 (0.9-1.1) Sodium 141 (135-145) mmol/L Potassium 4.5 (3.3-5.1) mmol/L Chloride 105 (96-108) mmol/L Carbon Dioxide 29 (22-29) mmol/L Anion Gap 12 (12-20) BUN 14 (9-16) mg/dL Creatinine 0.83 (0.5-1.4) mg/dL Estim Creat Clear Calc 55.1 Estimated GFR > 60 Random Glucose 96 (60-115) mg/dL Calcium 9.7 D (8.4-10.2) mg/dL Magnesium 2.2 (1.6-2.6) mg/dL Total Bilirubin 0.4 (0.0-1.0) mg/dL AST 15 (5-31) U/L ALT 12 (0-31) U/L Alkaline Phosphatase 118 H (39-117) U/L Total Creatine Kinase 39 (26-140) U/L Troponin I High Sens (<3.5-17.0) ng/L Total Protein 7.3 (6.5-8.0) g/dL Albumin 4.4 (3.5-5.0) g/dL 12/05/22 Range/Units 13:24 WBC (4.8-10.8) X10*3/uL RBC (4.20-5.50) X10*6/uL Hgb (12.0-16.0) g/dl Hct (37.0-47.0) % MCV (80.0-98.0) fL MCH (27.0-33.0) pg MCHC (31.0-35.0) g/dl RDW (11.0-16.0) % Plt Count (160-400) X10*3/uL MPV (9.4-12.3) fL Immature Gran % (Auto) (0.0-0.4) % Neut % (Auto) (45-73) % Lymph % (Auto) (20-40) % [place] % (Auto) (2-11) % Eos % (Auto) (0-4) % Baso % (Auto) (0-2) % Lymph # (Auto) (1.2-4.9) X10*3/uL [place] # (Auto) (0.1-1.2) X10*3/uL Eos # (Auto) (0.0-0.4) X10*3/uL Baso # (Auto) (0.0-0.2) X10*3/uL Abs Immat Gran (auto) (0.00-0.03) X10*3/uL Absolute Neuts (auto) (2.0-8.3) x10*3/uL Absolute Nucleated RBC (0.0-0.012) X10*3/uL Nucleated RBC % (auto) (0.0-0.2) /100WBC PT (10.0-13.1) SEC INR (0.9-1.1) Sodium (135-145) mmol/L Potassium (3.3-5.1) mmol/L Chloride (96-108) mmol/L Carbon Dioxide (22-29) mmol/L Anion Gap (12-20) BUN (9-16) mg/dL Creatinine (0.5-1.4) mg/dL Estim Creat Clear Calc Estimated GFR Random Glucose (60-115) mg/dL Calcium (8.4-10.2) mg/dL Magnesium (1.6-2.6) mg/dL Total Bilirubin (0.0-1.0) mg/dL AST (5-31) U/L ALT (0-31) U/L Alkaline Phosphatase (39-117) U/L Total Creatine Kinase (26-140) U/L Troponin I High Sens < 3.5 (<3.5-17.0) ng/L Total Protein (6.5-8.0) g/dL Albumin (3.5-5.0) g/dL <LIA Gay Last Filed: 12/05/22 16:51> Independent Interpretation I performed an independent interpretation of an: Plain X-Ray <LIA Gay Last Filed: 12/05/22 16:51> Interpretation: tiny fracture of the distal left radius, nondisplaced <LIA Gay Last Filed: 12/05/22 16:51> Radiology Impression Discussion of test interpretation with radiology: I have reviewed the radiologist's reading. <LIA Gay Last Filed: 12/05/22 16:51> Radiologist Impression: IMPRESSION: No acute intracranial process seen. ? There is a right posterior parietal lobe encephalomalacia new since the previous CT brain exam 07/17/2018. ? Degenerative disc changes C5-C6 disc level with spondylosis. No visible acute fracture or dislocation in cervical spine.? IMPRESSION: *? No acute traumatic pathology in the chest, abdomen or pelvis. *? Large hiatal hernia. *? 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 *? There appear to be two very small stones of the left kidney. No ureteral stones or hydronephrosis. *? Colonic diverticulosis without diverticulitis. IMPRESSION: 1.? Acute intra-articular fracture of the distal lateral radius. 2.? Degenerative changes at the first CMC joint. <LIA Gay Last Filed: 12/05/22 16:51> External Record Review External record reviewed: Office record, Outpatient record and Prior outpatient labs <LIA Gay Last Filed: 12/05/22 16:51> Prescription Management I considered prescription management with: Pain Medication <LIA Gay Last Filed: 12/05/22 16:51> prn tylenol and motrin ok for pain <LIA Gay Last Filed: 12/05/22 16:51> Critical Care Time Critical Care Time Critical Care Time: No <LIA Gay Last Filed: 12/05/22 16:51> Discharge Plan Discharge Clinical Impression: Distal radius fracture, left <LIA Fleming - Last Filed: 12/05/22 12:33> Patient Disposition: Home, Self-Care <LIA Fleming - Last Filed: 12/05/22 12:33> Additional Instructions: Your wrist x-ray showed Acute intra-articular fracture of the distal lateral radius. Your other CT scans did not show any traumatic injuries. Wear the applied splint until you are evaluated by Orthopedics - call for an appointment Elevate your hand when possible. <LIA Fleming - Last Filed: 12/05/22 12:33> Prescriptions: No Action lamotrigine 200 mg tablet 1 tab PO BID amlodipine 5 mg tablet 1 tab PO DAILY pantoprazole 40 mg tablet,delayed release (DR/EC) 1 tab PO BID sertraline 25 mg tablet 1 tab PO DAILY (DME) walker [facility] [place] See Rx Instructions .Route Qty: 1 0RF Rx Instructions: As directed <LIA Fleming - Last Filed: 12/05/22 12:33> Referrals: [facility] [place] [facility] [Provider Group] (1. Acute intra-articular fracture of the distal lateral radius.) <LIA Fleming - Last Filed: 12/05/22 12:33> Interventions: ED Discharge Assessment Last Done: 12/05/22 16:05 <LIA Fleming Last Filed: 12/05/22 12:33> Discharge Date/Time: 12/05/22 16:06 <LIA Fleming - Last Filed: 12/05/22 12:33>
[2022-12-05 12:18] VITALS: BP 138/83; PULSE 85; RESP 18; TEMP 36.6; O2SAT 99; BMI 24.1
--- NOTE | 2022-12-05 12:24 | ECG_ITS ---
Test Reason : FALL Blood Pressure : / mmHG Vent. Rate : 076 BPM Atrial Rate : 076 BPM P-R Int : 180 ms QRS Dur : 072 ms QT Int : 398 ms P-R-T Axes : 018 022 022 degrees QTc Int : 447 ms Normal sinus rhythm Cannot rule out Anterior infarct , age undetermined Abnormal ECG When compared with ECG of 17-JUL-2018 15:38, No significant change was found Referred By: Lisa Wilhelm Electronically Signed By:SUKHDEEP ORDOÑEZ MD
[2022-12-05 13:40] VITALS: BP 156/90; PULSE 76; RESP 16; O2SAT 100
[2022-12-05 13:41] LABS: MANUAL DIFF FLAG NO
[2022-12-05 13:43] LABS: Basophils Absolute Auto 0.1 X10*3/uL (0.0-0.2); Basophils Percent Auto 0.9 % (0-2); Eosinophils Absolute Auto 0.1 X10*3/uL (0.0-0.4); Eosinophils Percent Auto 1.6 % (0-4); Hematocrit 41.7 % (37.0-47.0); Hemoglobin 13.6 g/dl (12.0-16.0); Imm Gran Abs Auto 0.03 X10*3/uL (0.00-0.03); Imm Gran Pct Auto 0.4 % (0.0-0.4); Lymphocytes Absolute Auto 1.8 X10*3/uL (1.2-4.9); Lymphocytes Percent Auto 25.8 % (20-40); Mean Corpuscular HGB Conc 32.6 g/dl (31.0-35.0); Mean Corpuscular Hemoglobin 27.9 pg (27.0-33.0); Mean Corpuscular Volume 85.5 fL (80.0-98.0); Mean Platelet Volume 9.4 fL (9.4-12.3); Monocytes Absolute Auto 0.6 X10*3/uL (0.1-1.2); Monocytes Percent Auto 8.3 % (2-11); Neutrophils Absolute Auto 4.4 x10*3/uL (2.0-8.3); Platelet Count 210 X10*3/uL (160-400); Red Blood Count 4.88 X10*6/uL (4.20-5.50); Red Cell Distribution Width 14.2 % (11.0-16.0)
[2022-12-05 13:51] LABS: INTERNATIONAL NORM RATIO 0.9 (0.9-1.1); Prothrombin Time 10.6 SEC (10.0-13.1)
[2022-12-05 14:00] LABS: Alanine Aminotransferase 12 U/L (0-31); Albumin Level 4.4 g/dL (3.5-5.0); Alkaline Phosphatase 118 U/L (39-117); Anion Gap 12 (12-20); Aspartate Amino Transferase 15 U/L (5-31); Bilirubin Total 0.4 mg/dL (0.0-1.0); Blood Urea Nitrogen 14 mg/dL (9-16); Calcium 9.7 mg/dL (8.4-10.2); Carbon Dioxide 29 mmol/L (22-29); Chloride 105 mmol/L (96-108); Creatinine Clr Calc Pharmacy 55.1; Estimated Glomerular Filt Rate > 60; Glucose Random 96 mg/dL (60-115); Magnesium 2.2 mg/dL (1.6-2.6); Potassium 4.5 mmol/L (3.3-5.1); Sodium 141 mmol/L (135-145); Total Protein 7.3 g/dL (6.5-8.0)
[2022-12-05 14:37] LABS: Troponin-I High Sensitivity < 3.5 ng/L (<3.5-17.0)
== END 2022-12-05 16:06 | disposition home or self-care (01) ==
PROVIDERS: Physician Assistant Medical; Emergency Provider Emergency Medicine Emergency Medical Services; PCP Family Medicine
DX: S52.502A Unspecified fracture of the lower end of left radius, initial encounter for closed fracture (principal); M25.532 Pain in left wrist; R07.89 Other chest pain; R51.9 Headache, unspecified; M54.50 Low back pain, unspecified; M25.512 Pain in left shoulder; M54.6 Pain in thoracic spine; R10.9 Unspecified abdominal pain; W10.9XXA Fall (on) (from) unspecified stairs and steps, initial encounter; Y93.9 Activity, unspecified; Y92.9 Unspecified place or not applicable; Y99.9 Unspecified external cause status; Z79.899 Other long term (current) drug therapy
CPT/HCPCS: 29130; 36415; 70450; 71250; 72125; 73030; 73080; 73110; 73130; 74176; 80053; 82550; 83735; 84484; 85025; 85610; 93005; 99284

== ENCOUNTER 2022-12-24 11:11 | Outpatient (REF) | payer MEDICARE, SELFPAY ==
--- NOTE | ~2022-12-24 | XR_ITS ---
EXAMINATION: XR WRIST, LEFT CLINICAL INFORMATION: Left wrist pain COMPARISON: Radiographs 12/05/2022 TECHNIQUE: 4 views of the left wrist FINDINGS: Osteopenia. Subtle fracture of the radial styloid, not significantly changed. No additional fractures or malalignment. Severe 1st CMC joint osteoarthritis. XR/XR wrist LT w scaphoid IMPRESSION: No significant change in the subtle fracture involving the distal aspect of the radial styloid. Osteopenia. Severe 1st CMC joint osteoarthritis.
== END 2022-12-24 11:12 | disposition home or self-care (01) ==
LOC: HO.HOSX 11:11
PROVIDERS: Visit Provider Physician Assistant
DX: S52.502A Unspecified fracture of the lower end of left radius, initial encounter for closed fracture (principal)
CPT/HCPCS: 73110; 99212

== ENCOUNTER 2023-01-14 16:36 | Outpatient (REF) | payer MEDICARE, SELFPAY ==
--- NOTE | ~2023-01-14 | XR_ITS ---
EXAMINATION: LEFT WRIST WITH SCAPHOID. CLINICAL INFORMATION: Pain left wrist COMPARISON: None TECHNIQUE: 4 views FINDINGS: There is loss of first carpometacarpal joint space with periarticular spurring. There is no visible acute fracture or lytic process. The soft tissues are normal.. XR/XR wrist LT w scaphoid IMPRESSION: Degenerative arthritic changes first carpometacarpal joint. No visible acute fracture or dislocation seen.
== END 2023-01-14 16:37 | disposition home or self-care (01) ==
LOC: HO.HOSX 16:36
PROVIDERS: Visit Provider Physician Assistant
DX: S52.502D Unspecified fracture of the lower end of left radius, subsequent encounter for closed fracture with routine healing (principal); X58.XXXD Exposure to other specified factors, subsequent encounter
CPT/HCPCS: 73110; 99212

== ENCOUNTER 2023-02-01 02:29 | Emergency (ER) | payer MEDICARE, SELFPAY ==
--- NOTE | ~2023-02-01 | CT_ITS ---
EXAMINATION: NONCONTRAST HEAD CT NONCONTRAST CERVICAL SPINE CT INDICATION INFORMATION: Trauma. Fall. COMPARISON: 12/05/2022 TECHNIQUE: Separate noncontrast CT examinations of the head and cervical spine were performed. Coronal and sagittal images were created for each examination at the technologist workstation. This CT examination was performed using dose optimization techniques as appropriate, variously including the following: *Automated exposure control *Adjustment of mA and/or kV according to patient size (this includes techniques or standardized protocols for targeted exams where dose is matched to indication/reason for exam; i.e. extremities or head) *Use of iterative reconstruction technique DLP: 752 mGy-cm FINDINGS: Head: There is no evidence of acute intracranial hemorrhage or territorial infarction. No abnormal mass effect or midline shift is seen. [place] to white matter differentiation is well preserved. No extra-axial fluid collections are identified. No hydrocephalus. Proportional prominence of the ventricles and sulcal spaces is consistent with mild volume loss. Patchy periventricular and deep white matter hypoattenuation is consistent with moderate small vessel ischemic changes. Multiple chronic infarcts, greatest at the right temporal occipital region. This is unchanged. No acute osseous or soft tissue abnormality. The mastoid air cells and visualized portions of the paranasal sinuses are well aerated. Cervical spine: There is anatomic alignment of the vertebral bodies and posterior elements. The atlantoaxial and atlantooccipital articulations are intact. Vertebral body heights are maintained. There is multilevel intervertebral disc space narrowing with endplate osteophyte formation and facet arthropathy. No evidence of acute fracture. No prevertebral soft tissue swelling. Visualized portions of the lung apices are unremarkable. The thyroid gland is unremarkable. CT/CT cervical spine wo IV con IMPRESSION: 1. No acute intracranial finding. Chronic volume loss with small vessel ischemic change. 2. No acute fracture or malalignment of the cervical spine. Mild degenerative change.
[2023-02-01 02:38] VITALS: BP 170/77; PULSE 81; RESP 16; TEMP 36.5; O2SAT 99; BMI 24.7
--- NOTE | 2023-02-01 03:04 | ED.FALL ---
HPI - Fall General Chief Complaint: Fall Stated Complaint: Fall on 01/29/ Hit head Time Seen by Provider: 02/01/23 02:50 Source: patient Mode of arrival: ambulatory Limitations: no limitations History of Present Illness HPI Narrative: [place] patient slipped on ice and fell backwards hitting her head to the ground on 01/29 no loss of consciousness was days for few seconds no nausea no vomiting since then patient complaining of occipital headache. Patient does have history of intercerebral bleed few times in the past section due to amyloid angiopathy , Speech is normal , gait is normal no focal deficit patient not on any anti coag Related Data Home Medications Medication Instructions Recorded Confirmed amlodipine 5 mg tablet 1 tab PO DAILY 03/29/21 03/29/21 lamotrigine 200 mg tablet 1 tab PO BID 03/29/21 04/04/21 pantoprazole 40 mg tablet,delayed 1 tab PO BID 03/29/21 03/29/21 release sertraline 25 mg tablet 1 tab PO DAILY 03/29/21 03/29/21 Previous Rx's Medication Instructions Recorded walker #1 ea 10/29/21 Allergies Allergy/AdvReac Type Severity Reaction Status Date / Time codeine [CODEINE] Allergy Intermediate DELIRIUM Verified 12/24/22 14:45 Review of Systems Review of Systems: Yes all other systems are reviewed and are negative PMFSH Past Medical History Medical History Achalasia Ataxia Cerebral amyloid angiopathy Depression Elevated cholesterol GERD (gastroesophageal reflux disease) HTN (hypertension) Hx of irritable bowel syndrome Hx of osteoporosis Seizures Short-term memory loss Surgical History H/O colonoscopy History of esophagogastroduodenoscopy (EGD) Hx of parathyroidectomy Social History Social History Alcohol intake: current Alcohol intake frequency: 0-2 drinks per day Alcohol type: wine Patient Tobacco Use Status: Never used Tobacco Smoked in Last 30 Days: No Use of substances other than those prescribed or required for medical reasons: No Advance Directives: No Advance Directives Information Provided: No Current occupational status: retired Current occupation: rt hand Physical Exam Vital Signs: Vital Signs: Last Vital Signs Temp 98.1 F 02/01/23 03:34 Pulse 75 02/01/23 03:34 Resp 16 02/01/23 03:34 BP 165/71 H 02/01/23 03:34 Pulse Ox 99 02/01/23 03:34 O2 Del Method 02/01/23 03:34 BMI result Body Mass Index 24.7 Appearance: Alert. Oriented X3. No acute distress. Eyes: PERRLA, No Nystagmus HEENT: Pharynx normal. Oral Mucosa moist soft tissue tenderness in the occipital area Neck: Normal inspection. Neck supple. CVS: Normal heart rate and rhythm. Pulses normal. Respiratory: No respiratory distress. Equal air entry bilateral, no wheezing/rales/rhonchi Abdomen: Soft and nontender. Bowel sounds are present, no mass palpable, no CVA tenderness Skin: Skin warm and dry. Normal skin color. Normal skin turgor. Extremities: No lower extremity edema. No calf tenderness Neuro: Oriented X 3. No motor deficit. No sensory deficit.No cerebellar signs , cranial nerves II-XII intact Medical Decision Making Medical Decision Making MDM Narrative: Patient with mechanical fall with closed head injury 2 days ago [facility] 15 CT head C-spine negative for acute discharge patient home with advised to take Tylenol/apply ice pack Differential Diagnosis SAH/SAH/ICB/skull fracture Radiology Impression Discussion of test interpretation with radiology: I have reviewed the radiologist's reading. Radiologist Impression: CT/CT head/brain wo IV con IMPRESSION: 1.? No acute intracranial finding. Chronic volume loss with small vessel ischemic change. 2.? No acute fracture or malalignment of the cervical spine. Mild degenerative change. Discharge Plan Discharge Clinical Impression: Head injury, closed Patient Disposition: Home, Self-Care Instructions: Head Injury (ED) Additional Instructions: Apply ice pack, take Tylenol for pain The CT scan of the head and C-spine negative for acute Prescriptions: No Action lamotrigine 200 mg tablet 1 tab PO BID amlodipine 5 mg tablet 1 tab PO DAILY pantoprazole 40 mg tablet,delayed release (DR/EC) 1 tab PO BID sertraline 25 mg tablet 1 tab PO DAILY (DME) walker Misc See Rx Instructions .Route Qty: 1 0RF Rx Instructions: As directed
[2023-02-01 03:34] VITALS: BP 165/71; PULSE 75; RESP 16; TEMP 36.7; O2SAT 99
--- NOTE | 2023-02-01 04:00 | PC.NURSE ---
Pt &Ox3, reports 8/10 head pain after slipping on ice at home on 01/29/2023. Pt describes pain as constant pulsating pain that radiates down to neck with pressure. Denies any vision changes or extremity weakness. Pt ambulated independently to CT scan with steady gait.
== END 2023-02-01 04:18 | disposition home or self-care (01) ==
PROVIDERS: Emergency Provider Internal Medicine; PCP Family Medicine
DX: S09.90XA Unspecified injury of head, initial encounter (principal); W00.0XXA Fall on same level due to ice and snow, initial encounter; Y93.89 Activity, other specified; Y92.017 Garden or yard in single-family (private) house as the place of occurrence of the external cause; Y99.9 Unspecified external cause status
CPT/HCPCS: 70450; 72125; 99284

== ENCOUNTER 2023-06-04 15:42 | Outpatient (REF) | payer MEDICARE, SELFPAY ==
[2023-06-04 16:05] LABS: MANUAL DIFF FLAG NO
[2023-06-04 17:06] LABS: Basophils Absolute Auto 0.1 X10*3/uL (0.0-0.2); Eosinophils Absolute Auto 0.1 X10*3/uL (0.0-0.4); Eosinophils Percent Auto 1.3 % (0-4); Hematocrit 42.3 % (37.0-47.0); Hemoglobin 13.6 g/dl (12.0-16.0); Imm Gran Abs Auto 0.02 X10*3/uL (0.00-0.03); Imm Gran Pct Auto 0.2 % (0.0-0.4); Lymphocytes Percent Auto 24.2 % (20-40); Mean Corpuscular HGB Conc 32.2 g/dl (31.0-35.0); Mean Corpuscular Hemoglobin 28.8 pg (27.0-33.0); Mean Corpuscular Volume 89.4 fL (80.0-98.0); Mean Platelet Volume 10.3 fL (9.4-12.3); Monocytes Absolute Auto 0.7 X10*3/uL (0.1-1.2); Monocytes Percent Auto 8.1 % (2-11); Neutrophils Absolute Auto 5.5 x10*3/uL (2.0-8.3); Neutrophils Percent Auto 65.2 % (45-73); Platelet Count 223 X10*3/uL (160-400); Red Blood Count 4.73 X10*6/uL (4.20-5.50); Red Cell Distribution Width 13.4 % (11.0-16.0); White Blood Count 8.4 X10*3/uL (4.8-10.8)
[2023-06-04 18:06] LABS: Rheumatoid Factor < 13.0 IU/mL (<15.0)
[2023-06-05 02:06] LABS: Anion Gap 12 (12-20); Blood Urea Nitrogen 16 mg/dL (9-16); Carbon Dioxide 28 mmol/L (22-29); Chloride 106 mmol/L (96-108); Estimated Glomerular Filt Rate > 60; Potassium 4.3 mmol/L (3.3-5.1); Sodium 142 mmol/L (135-145)
[2023-06-05 08:55] LABS: Magnesium 2.4 mg/dL (1.6-2.6)
== END 2023-06-04 15:43 | disposition home or self-care (01) ==
LOC: HO.LAB 15:42
PROVIDERS: PCP Family Medicine; Visit Provider Family Medicine
DX: E21.3 Hyperparathyroidism, unspecified (principal); I10 Essential (primary) hypertension; K75.81 Nonalcoholic steatohepatitis (NASH)
CPT/HCPCS: 36415; 80051; 82310; 82565; 83735; 84520; 85025; 86431

== ENCOUNTER 2023-10-21 14:43 | Emergency (ER) | payer MEDICARE, SELFPAY ==
--- NOTE | ~2023-10-21 | CT_ITS ---
EXAMINATION: CT HIP WITHOUT CONTRAST, LEFT CLINICAL INFORMATION: Left hip pain COMPARISON: CT scan the abdomen and pelvis November 2022. TECHNIQUE: Multidetector volumetric imaging was obtained through the left hip without contrast material. Multiplanar reformatted images were submitted in coronal and sagittal planes. This CT examination was performed using dose optimization techniques as appropriate, variously including the following: *Automated exposure control *Adjustment of mA and/or kV according to patient size (this includes techniques or standardized protocols for targeted exams where dose is matched to indication/reason for exam; i.e. extremities or head) *Use of iterative reconstruction technique DLP: 189 mGy-cm FINDINGS: Left hip joint: There is a minimally displaced fracture of the anterior column of the acetabulum possibly extending to the articular surface of the acetabulum. See axial image 45 series 24. There is also minimally displaced oblique fractures of the left inferior ramus There is mild arthrosis of the hip joint with mild joint space narrowing posteriorly the small marginal osteophyte along the inferior aspect of the left femoral head. Cystic change at the left femoral head neck junction and measuring up to 1 cm. No bony excrescence. No definite joint effusion. The symphysis pubis is normal. Partially visualized left sacroiliac joint normal. Spondylosis of the partially visualized lumbar sacral spine with degenerative disc changes at L5-S1 and a vacuum disc phenomena seen previously. Diverticulosis without diverticulitis of the descending and sigmoid colon CT/CT hip LT wo IV con IMPRESSION: 1. Minimally displaced fracture of the anterior column of the left pelvis. 2. Minimally displaced fracture of the left inferior ramus. 3. Mild arthrosis of the left hip joint. 4. Spondylosis of the partially visualized lumbar sacral spine.
--- NOTE | ~2023-10-21 | CT_ITS ---
EXAMINATION: CT HEAD WITHOUT CONTRAST CT CERVICAL SPINE WITHOUT CONTRAST CLINICAL INFORMATION: Fall. COMPARISON: CT head and cervical spine February 01, 2023 TECHNIQUE: Imaging was performed from the skull base to vertex without intravenous administration of contrast. In addition, helical noncontrast CT imaging was acquired through the cervical spine and source images were reviewed along with axial reconstructions and sagittal and coronal MPRs. [This CT examination was performed using dose optimization techniques as appropriate, variously including the following: *Automated exposure control *Adjustment of mA and/or kV according to patient size (this includes techniques or standardized protocols for targeted exams where dose is matched to indication/reason for exam; i.e. extremities or head) *Use of iterative reconstruction technique] DLP: 10.25+639.78+282.72 mGy-cm FINDINGS: HEAD: No acute intracranial abnormality. No intraventricular hemorrhage or acute territorial infarct. No abnormal mass effect or midline shift. No extra-axial fluid collections. No hydrocephalus. There is prominence of the ventricles and sulci consistent with cerebral atrophy. Stable multiple chronic bilateral infarcts. Largest in the right temporal occipital region similar prior study. No acute onset LE. Normal aeration of the visualized paranasal sinuses and mastoid air cells. CERVICAL SPINE: There is no evidence of acute cervical spine fracture. Vertebral bodies remain normal in height. Cervical vertebrae have normal alignment. There is multilevel degenerative spondylosis of the cervical spine with disc height narrowing and endplate spurs and facet joint arthrosis No pre- or paravertebral soft tissue abnormality is identified. Limited assessment of the lung apices is unremarkable. CT/CT cervical spine wo IV con IMPRESSION: 1. No acute intracranial pathology. 2. No CT evidence of acute cervical spine fracture or traumatic subluxation
[2023-10-21 14:57] VITALS: BP 136/79; BP 150/72; PULSE 75; PULSE 77; RESP 12; TEMP 36.4; O2SAT 100; O2SAT 98; BMI 25.9
--- NOTE | 2023-10-21 15:12 | ECG_ITS ---
Test Reason : ?syncope Blood Pressure : / mmHG Vent. Rate : 081 BPM Atrial Rate : 081 BPM P-R Int : 178 ms QRS Dur : 086 ms QT Int : 408 ms P-R-T Axes : 042 041 016 degrees QTc Int : 473 ms Normal sinus rhythm Normal ECG When compared with ECG of 05-DEC-2022 13:19, No significant change was found Referred By: Brenna Sinclair Electronically Signed By:ADRIANO NICHOLSON
--- NOTE | 2023-10-21 15:20 | ED_ITS ---
HPI - Fall General Chief Complaint: Fall Stated Complaint: TRIP/FALL,UNK IF INJURED PER EMS Time Seen by Provider: 10/21/23 14:56 Source: patient and RN notes reviewed Mode of arrival: ambulatory Limitations: no limitations History of Present Illness HPI Narrative: This is a 73-year-old female, with a history of seizures, osteoporosis, irritable bowel syndrome, GERD, depression, cerebral amyloid angiopathy, ataxia, achalasia, and history of patient reported 3 brain bleeds, presenting to the emergency department via EMS, with complaints of left hip pain status post fall today. Patient states that she was carrying groceries into her house when she fell. Patient reports that she believes that she tripped on her step however states that this happened quickly. She denies any shortness of breath or chest pain prior to the fall. Denies any dizziness or lightheadedness prior to the fall. She states that she felt well prior to this fall. Granddaughter at bedside witnessed this fall, states that patient appeared to shift backwards and she fell onto her left hip. Patient did not hit her head or lose consciousness. Patient reports some dizziness since the fall. Denies any chest pain or shortness of breath. Reports pain in her left pelvic region. She has been unable to bear weight on her left leg secondary to the pain. Denies taking any medications at home prior to her arrival. No other complaints or concerns at this time. MD complaint: fall Onset (ago): day(s) Fall from: standing Fall witnessed: yes, by family Place fall occurred: home Loss of consciousness: none Prolonged down time: minute(s) Symptoms prior to fall: other (Unsure) Associated symptoms (after fall): unable to walk and other (Left hip pain) Related Data Home Medications Medication Instructions Recorded Confirmed amlodipine 5 mg tablet 1 tab PO DAILY 03/29/21 10/21/23 lamotrigine 200 mg tablet 1 tab PO BID 03/29/21 10/21/23 pantoprazole 40 mg tablet,delayed 1 tab PO BID 03/29/21 10/21/23 release sertraline 50 mg tablet 50 mg PO QAM 10/21/23 10/21/23 Previous Rx's Medication Instructions Recorded walker #1 ea 10/29/21 Allergies Allergy/AdvReac Type Severity Reaction Status Date / Time codeine [CODEINE] Allergy Intermediate DELIRIUM Verified 12/24/22 14:45 Review of Systems 2 Review of Systems: Yes all other systems are reviewed and are negative Constitutional: Constitutional: Reports as per [facility] Past Medical History Attestation statement: The following information was validated with the patient. Medical History Achalasia Ataxia Seizures Short-term memory loss Depression Cerebral amyloid angiopathy Elevated cholesterol HTN (hypertension) Hx of osteoporosis Hx of irritable bowel syndrome GERD (gastroesophageal reflux disease) Surgical History Hx of parathyroidectomy History of esophagogastroduodenoscopy (EGD) H/O colonoscopy Social History Social History Alcohol intake: current Alcohol intake frequency: 0-2 drinks per day Alcohol type: wine Patient Tobacco Use Status: Never used Tobacco Smoked in Last 30 Days: No Use of substances other than those prescribed or required for medical reasons: No Advance Directives: Yes Advance Directives on File: Yes Advance Directives Date on File: 10/22/23 Current occupational status: retired Current occupation: rt hand Physical Exam 2 Vital Signs: Vital Signs: Last Vital Signs Temp 96.5 F L 10/22/23 08:32 Pulse 76 10/22/23 08:32 Resp 15 10/22/23 08:32 BP 114/61 10/22/23 08:32 Pulse Ox 95 10/22/23 08:32 O2 Del Method Room Air 10/22/23 08:32 BMI result Body Mass Index 25.9 Const: General: cooperative, comfortable and no acute distress O rientation/consciousness: patient oriented x3 Limitations: no limitations HEENT: Head: Yes normal to inspection, Yes normocephalic, Yes atraumatic, No Erickson's sign, No palpable skull fracture and No raccoon eyes Ears: hearing grossly normal bilaterally and TM's normal bilaterally General nose exam: N ormal external nose present Face and sinus: Yes normal facial exam Mouth: Normal oral and palatal mucosa present, oropharynx normal and moist mucous membranes Throat: Yes posterior oropharynx normal Eyes: General: appearance normal, both eyes and all related structures E yelids: Yes eyelids normal Conjunctivae: conjunctivae normal Sclerae: s clerae normal Pupils: Equal, round and reactive pupils present EOM: EOMs intact bilaterally Neck: Other: No midline cervical spine tenderness to palpation. Full range of motion of the neck. Neck: Yes normal visual inspection, Yes full ROM and Yes no lymphadenopathy Lymphatic: no lymphadenopathy noted Chest: Chest palpation & inspection: normal inspection of the chest Resp: Effort & Inspection: normal respiratory effort and able to speak in complete sentences Auscultation: clear to auscultation bilaterally, no crackles, no rales, no rhonchi and no wheezes Cardio: Rate: regular rate Rhythm: regular rhythm Heart sounds: S1 normal heart sound present and S2 normal heart sound present GI: Other: Abdomen is soft, nontender, nondistended, no ecchymosis seen. Inspection: Yes normal to inspection Skin: General skin exam: no rashes or lesions noted Trauma: no lacerations or abrasions Wounds: no wounds Neuro: General: patient oriented x3 and moves all extremities Cranial nerves: Yes Equal, round and reactive pupils present Extrem: Other: Tenderness to palpation along the left anterior thigh and femur. Tenderness to palpation along the left hip and pelvis. Pedal pulse 2 +. No obvious deformity or swelling, no open wounds. General: Yes normal to inspection Right upper extremity: normal to inspection Left upper extremity: normal to inspection Right lower extremity: normal to inspection Left lower extremity: normal to inspection Course Reevaluation(s) Reevaluation #1: CT head and CT neck unremarkable for acute process, cervical spine collar was removed. Patient has a minimally displaced fracture of the anterior column of the left pelvis and minimally displaced fracture of the left inferior ramus. I discussed this finding with Andressa Garcia PA-C, who recommends nonweightbearing. Noted to admit and this is not a surgical case. If needed, can admit to medicine if pain is not well controlled, and she can follow up outpatient with Orthopedics. Time: 17:17 Reevaluation #2: Long discussion with patient, granddaughter and on a at bedside. Discussed that she is nonweightbearing with this fracture and that possibility of hospital admission versus PT/Case Management is an option. Given patient has been medicated with Tylenol and her pain is well controlled, I do not think that she qualifies for hospital admission at this time however would like to keep her overnight to be evaluated by Physical therapy and Case Management tomorrow morning to see if rehabilitation is warranted. The family agrees with this plan as they do not feel it is safe to discharge her home as she lives with her granddaughter, and multiple animals and is unsure if she is able to get up and down with this type of fracture. They are agreeable to stay overnight in to be assessed in the morning. I am still awaiting labs, CBC has returned, mild leukocytosis at 13.9k, all other labs are pending at this time. Time: 17:40 Reevaluation #3: Chemistry within normal limits, troponin negative. Patient had no chest pain or dizziness prior to the fall, fall was mechanical, repeat not indicated at this time. Patient had no chest pain or shortness of breath, and fall seem to be mechanical. Patient will be seen by case management physical therapy in the morning, Tylenol p.r.n. pain ordered. Physician observation initiated pending PT and Case Management dispo Time: 19:21 Additional Reevaluation(s): 10/22/23--745--physician observation continued. Imaging reviewed. Patient nonweightbearing status to LLE due to fractures. Physical therapy evaluated patient this morning and recommended acute rehab. Pending case management placement -patient accepted to [facility] at 1pm. Medications Administered Generic Name Dose Route Start Last Admin Trade Name Freq PRN Reason Stop Dose Admin Acetaminophen 650 mg 10/21/23 19:24 10/22/23 06:12 Acetaminophen 325 Mg Tablet PO 650 mg Q6H PRN Administration Pain, Moderate(Pain Scale 4-6) Amlodipine Besylate 5 mg 10/22/23 09:00 10/22/23 08:35 Amlodipine Besylate 5 Mg Tablet PO 5 mg DAILY CECI Administration Protocol Lamotrigine 200 mg 10/21/23 21:00 10/22/23 08:35 Lamotrigine 100 Mg Tablet PO 200 mg BID CECI Administration Omeprazole 20 mg 10/22/23 06:30 10/22/23 05:56 Omeprazole 20 Mg Capsule. PO 20 mg BID@1482,5620 CECI Administration Oxycodone HCl 5 mg 10/21/23 22:14 10/22/23 06:12 Oxycodone Hcl Immed Release 5 Mg Tablet PO 5 mg Q6H PRN Administration Pain, Moderate(Pain Scale 4-6) Sertraline HCl 50 mg 10/22/23 09:00 10/22/23 08:35 Sertraline Hcl 50 Mg Tablet PO 50 mg DAILY CECI Administration Discontinued Medications Generic Name Dose Route Start Last Admin Trade Name Osmany PRN Reason Stop Dose Admin Acetaminophen 975 mg 10/21/23 15:13 10/21/23 16:10 Acetaminophen 325 Mg Tablet PO 10/21/23 15:14 975 mg ONCE ONE Administration Medical Decision Making Medical Decision Making [facility] Narrative: This is a 73-year-old female presenting to the emergency department for evaluation of fall which occurred prior to arrival. Patient reports while she was carrying groceries she fell, unclear of how this happened. This fall was witnessed by granddaughter who reports that she fell backwards. There is no head strike or LOC. She arrives to the emergency room in a cervical collar. She has been unable to bear weight on her left leg secondary to pain. Abdomen is soft and nontender, patient is alert and oriented x3. Blood pressure mildly elevated 150/72. No chest pain or shortness of breath. Plan: Labs, CT head, CT neck, CT left hip, EKG, basic labs, troponin Differential Diagnosis Differential Diagnoses: The differential diagnosis associated with the presentation includes Left hip fracture, contusion, ICH, closed head injury, syncope, electrolyte abnormality, arrhythmia Admission/Observation Consideration of admission/observation: Escalation of care including admission/observation considered Patient would have been admitted to the hospital had her work up had any findings where hospital admission was appropriate and her clinical presentation warranted hospital admission. Consult Healthcare Provider Management of the patient was discussed with: Outside Barrel Lathe Operator Andressa Garcia, SUNITA - orthopedic SUNITA Lab Data [facility] Lab Attestation statement: I reviewed the patient's lab results. Mild leukocytosis at 13.9, likely reactive given fracture. 10/21/23 18:51 10/21/23 18:51 Labs: Lab Results 10/21/23 Range/Units 18:51 WBC 13.9 H (4.8-10.8) X10*3/uL RBC 4.61 (4.20-5.50) X10*6/uL Hgb 13.6 (12.0-16.0) g/dl Hct 41.3 (37.0-47.0) % MCV 89.6 (80.0-98.0) fL MCH 29.5 (27.0-33.0) pg MCHC 32.9 (31.0-35.0) g/dl RDW 13.2 (11.0-16.0) % Plt Count 176 (160-400) X10*3/uL MPV 9.8 (9.4-12.3) fL Immature Gran % (Auto) 0.6 H (0.0-0.4) % Neut % (Auto) 81.5 H (45-73) % Lymph % (Auto) 11.0 L (20-40) % Lander % (Auto) 6.0 (2-11) % Eos % (Auto) 0.4 (0-4) % Baso % (Auto) 0.5 (0-2) % Lymph # (Auto) 1.5 (1.2-4.9) X10*3/uL Lander # (Auto) 0.8 (0.1-1.2) X10*3/uL Eos # (Auto) 0.1 (0.0-0.4) X10*3/uL Baso # (Auto) 0.1 (0.0-0.2) X10*3/uL Abs Immat Gran (auto) 0.09 H (0.00-0.03) X10*3/uL Absolute Neuts (auto) 11.4 H (2.0-8.3) x10*3/uL Absolute Nucleated RBC 0.000 (0.0-0.012) X10*3/uL Nucleated RBC % (auto) 0.0 (0.0-0.2) /100WBC PT 11.0 L (11.1-13.3) SEC INR 0.9 (0.9-1.1) APTT 31.6 (26.0-36.4) SEC Sodium 140 (135-145) mmol/L Potassium 4.0 (3.3-5.1) mmol/L Chloride 107 (96-108) mmol/L Carbon Dioxide 25 (22-29) mmol/L Anion Gap 12 (12-20) BUN 14 (9-16) mg/dL Creatinine 0.81 (0.5-1.4) mg/dL Estim Creat Clear Calc 58.7 Estimated GFR > 60 Random Glucose 92 (60-115) mg/dL Calcium 9.3 D (8.4-10.2) mg/dL Total Bilirubin 0.3 (0.0-1.0) mg/dL Direct Bilirubin 0.1 (0.0-0.5) mg/dL AST 24 (5-31) U/L ALT 21 (0-31) U/L Alkaline Phosphatase 98 (39-117) U/L Troponin I High Sens < 2.7 (<3.5-17.0) ng/L Total Protein 7.2 (6.5-8.0) g/dL Albumin 4.3 (3.5-5.0) g/dL Lipase 19 (8-78) U/L Independent Interpretation I performed an independent interpretation of an: EKG Interpretation: Normal sinus rhythm at a ventricular rate of 81 beats per minute, NE interval 178, QTC 473, no ST elevation or depression. Similar appearing EKG when compared to December 05, 2022 Radiology Impression Discussion of test interpretation with radiology: I have reviewed the radiologist's reading. Radiologist Impression: EXAMINATION: CT HIP WITHOUT CONTRAST, LEFT CLINICAL INFORMATION: Left hip pain COMPARISON: CT scan the abdomen and pelvis November 2022. TECHNIQUE: Multidetector volumetric imaging was obtained through the left hip without contrast material. Multiplanar reformatted images were submitted in coronal and sagittal planes. This CT examination was performed using dose optimization techniques as appropriate, variously including the following: *Automated exposure control *Adjustment of mA and/or kV according to patient size (this includes techniques or standardized protocols for targeted exams where dose is matched to indication/reason for exam; i.e. extremities or head) *Use of iterative reconstruction technique DLP: 189 mGy-cm FINDINGS: Left hip joint: There is a minimally displaced fracture of the anterior column of the acetabulum possibly extending to the articular surface of the acetabulum. See axial image 45 series 24. There is also minimally displaced oblique fractures of the left inferior ramus There is mild arthrosis of the hip joint with mild joint space narrowing posteriorly the small marginal osteophyte along the inferior aspect of the left femoral head. Cystic change at the left femoral head neck junction and measuring up to 1 cm. No bony excrescence. No definite joint effusion. The symphysis pubis is normal. Partially visualized left sacroiliac joint normal. Spondylosis of the partially visualized lumbar sacral spine with degenerative disc changes at L5-S1 and a vacuum disc phenomena seen previously. Diverticulosis without diverticulitis of the descending and sigmoid colon CT/CT hip LT wo IV con IMPRESSION: 1. Minimally displaced fracture of the anterior column of the left pelvis. 2. Minimally displaced fracture of the left inferior ramus. 3. Mild arthrosis of the left hip joint. 4. Spondylosis of the partially visualized lumbar sacral spine. Dictated By: Rob Mcclellan MD EXAMINATION: CT HEAD WITHOUT CONTRAST CT CERVICAL SPINE WITHOUT CONTRAST CLINICAL INFORMATION: Fall. COMPARISON: CT head and cervical spine February 01, 2023 TECHNIQUE: Imaging was performed from the skull base to vertex without intravenous administration of contrast. In addition, helical noncontrast CT imaging was acquired through the cervical spine and source images were reviewed along with axial reconstructions and sagittal and coronal MPRs. [This CT examination was performed using dose optimization techniques as appropriate, variously including the following: *Automated exposure control *Adjustment of mA and/or kV according to patient size (this includes techniques or standardized protocols for targeted exams where dose is matched to indication/reason for exam; i.e. extremities or head) *Use of iterative reconstruction technique] DLP: 10.25+639.78+282.72 mGy-cm FINDINGS: HEAD: No acute intracranial abnormality. No intraventricular hemorrhage or acute territorial infarct. No abnormal mass effect or midline shift. No extra-axial fluid collections. No hydrocephalus. There is prominence of the ventricles and sulci consistent with cerebral atrophy. Stable multiple chronic bilateral infarcts. Largest in the right temporal occipital region similar prior study. No acute onset LE. Normal aeration of the visualized paranasal sinuses and mastoid air cells. CERVICAL SPINE: There is no evidence of acute cervical spine fracture. Vertebral bodies remain normal in height. Cervical vertebrae have normal alignment. There is multilevel degenerative spondylosis of the cervical spine with disc height narrowing and endplate spurs and facet joint arthrosis No pre- or paravertebral soft tissue abnormality is identified. Limited assessment of the lung apices is unremarkable. CT/CT head/brain wo IV con IMPRESSION: 1. No acute intracranial pathology. 2. No CT evidence of acute cervical spine fracture or traumatic subluxation Dictated By: Tavon Malone MD Discharge Plan Discharge Clinical Impression: Fracture of left pelvis, Closed fracture of left inferior pubic ramus Patient Disposition: Still a Patient Additional Instructions: You were seen in the emergency department due to a fall. You have a fracture of your left pelvis and your left inferior pubic ramus. The Orthopedic recommendations are nonweightbearing on the left leg and to follow up outpatient. Please follow all physical therapy and Case Management recommendations. If any new or worsening symptoms occur including but not limited to chest pain or shortness of breath, please return for re-evaluation. Prescriptions: No Action lamotrigine 200 mg tablet 1 tab PO BID amlodipine 5 mg tablet 1 tab PO DAILY pantoprazole 40 mg tablet,delayed release (DR/EC) 1 tab PO BID (DME) walker Misc See Rx Instructions .Route Qty: 1 0RF Rx Instructions: As directed sertraline 50 mg tablet 50 mg PO QAM Referrals: [facility] [Other]
[2023-10-21] MEDS: Acetaminophen 325 MG TABLET 975 MG PO (16:10)
[2023-10-21 18:56] LABS: MANUAL DIFF FLAG NO
[2023-10-21 19:01] LABS: Basophils Absolute Auto 0.1 X10*3/uL (0.0-0.2); Basophils Percent Auto 0.5 % (0-2); Eosinophils Absolute Auto 0.1 X10*3/uL (0.0-0.4); Eosinophils Percent Auto 0.4 % (0-4); Hematocrit 41.3 % (37.0-47.0); Hemoglobin 13.6 g/dl (12.0-16.0); Imm Gran Abs Auto 0.09 X10*3/uL (0.00-0.03); Imm Gran Pct Auto 0.6 % (0.0-0.4); Lymphocytes Absolute Auto 1.5 X10*3/uL (1.2-4.9); Mean Corpuscular HGB Conc 32.9 g/dl (31.0-35.0); Mean Corpuscular Hemoglobin 29.5 pg (27.0-33.0); Mean Corpuscular Volume 89.6 fL (80.0-98.0); Mean Platelet Volume 9.8 fL (9.4-12.3); Monocytes Absolute Auto 0.8 X10*3/uL (0.1-1.2); Neutrophils Absolute Auto 11.4 x10*3/uL (2.0-8.3); Neutrophils Percent Auto 81.5 % (45-73); Platelet Count 176 X10*3/uL (160-400); Red Blood Count 4.61 X10*6/uL (4.20-5.50); Red Cell Distribution Width 13.2 % (11.0-16.0); White Blood Count 13.9 X10*3/uL (4.8-10.8)
[2023-10-21 19:09] LABS: INTERNATIONAL NORM RATIO 0.9 (0.9-1.1)
[2023-10-21 19:12] LABS: Partial Thromboplastin Time 31.6 SEC (26.0-36.4)
[2023-10-21 19:14] LABS: Alanine Aminotransferase 21 U/L (0-31); Albumin Level 4.3 g/dL (3.5-5.0); Alkaline Phosphatase 98 U/L (39-117); Anion Gap 12 (12-20); Aspartate Amino Transferase 24 U/L (5-31); Bilirubin Direct 0.1 mg/dL (0.0-0.5); Bilirubin Total 0.3 mg/dL (0.0-1.0); Blood Urea Nitrogen 14 mg/dL (9-16); Calcium 9.3 mg/dL (8.4-10.2); Carbon Dioxide 25 mmol/L (22-29); Chloride 107 mmol/L (96-108); Creatinine Clr Calc Pharmacy 58.7; Estimated Glomerular Filt Rate > 60; Glucose Random 92 mg/dL (60-115); Lipase 19 U/L (8-78); Sodium 140 mmol/L (135-145); Total Protein 7.2 g/dL (6.5-8.0)
[2023-10-21 19:22] LABS: Troponin-I High Sensitivity < 2.7 ng/L (<3.5-17.0)
--- NOTE | 2023-10-21 19:36 | PHA.MEDREC ---
Pharmacy Consult ? Medication Reconciliation Pharmacy has completed the medication reconciliation. Patient granddaughter confirmed medications. Hayley Bolaños, MarilynD
[2023-10-21] MEDS: lamoTRIgine 100 MG TABLET 200 MG PO (21:23)
[2023-10-21 21:30] VITALS: BP 132/54; PULSE 93; RESP 17; O2SAT 95
[2023-10-21] MEDS: oxyCODONE HCl Immed Release 5 MG TABLET PO (22:41)
[2023-10-22] MEDS: Omeprazole 20 MG CAPSULE.DR PO (05:56)
[2023-10-22] MEDS: Acetaminophen 325 MG TABLET 650 MG PO ×2 (06:12→12:17)
[2023-10-22] MEDS: oxyCODONE HCl Immed Release 5 MG TABLET PO ×2 (06:12→12:16)
--- NOTE | 2023-10-22 07:27 | PC.NURSE ---
PHYSICAL THERAPY AT BEDSIDE, PT AWARE OF PLAN OF CARE.
[2023-10-22 07:40] VITALS: BP 132/54; PULSE 93; O2SAT 95
[2023-10-22 08:32] VITALS: BP 114/61; PULSE 76; RESP 15; TEMP 35.8; O2SAT 95
[2023-10-22] MEDS: lamoTRIgine 100 MG TABLET 200 MG PO (08:35)
[2023-10-22] MEDS: Sertraline HCL 50 MG TABLET PO (08:35)
[2023-10-22] MEDS: amLODIPine Besylate 5 MG TABLET PO (08:35)
--- NOTE | 2023-10-22 08:40 | PC.NURSE ---
PT IS A/O X 2-3. NO SOB/MYRNA NOTED SPEAKS IN FULL SENTENCES. C/O 10/10 L LEG PAIN. PT STATES THAT INCREASE PAIN WITH ANY TYPE OF MOVEMENT. PT MED EARLIER WITH APAP AND OXYCODONE FOR PAIN. PT SEEN BY PT EARLIER - NON-WEEIGHT BEARING ON L LEG. STAND AND PIVOT ON COMMODE. PT AWARE OF PLAN OF CARE.
--- NOTE | 2023-10-22 09:00 | PC.NURSE ---
PT'S SON AT BEDSIDE. PT/SON AWARE OF PLAN OF CARE.
--- NOTE | 2023-10-22 09:56 | MHC.CM.ED ---
Received case management consult overnight. Patient came to the ER after a fall. Found to have a pelvic fracture. Physical therapy eval completed. Acute rehab is recommended. Met with patient and son Isauro. Patient lives with his grandchildren, ambulates independently and had no services prior to coming to the ER. PCP verified. Copy of HCP obtained from [facility]. Patient received 4 Pfizer vaccines. Patient has not been inpatient in the past 30 days. Referral sent to all 3 acute rehab facilities. [facility] is able to offer a bed. Patient and Isauro agreeable. Patient can leave at 1pm. Sanjay BARLOW booked. [facility] with chart. Patient, Merna Box RN and Diana FITZGERALD aware. Continue to monitor for d/c needs.
--- NOTE | 2023-10-22 11:24 | PC.NURSE ---
PT AWARE OF PLAN OF CARE FOR TRANSFER VIA AMBULANCE TO [facility] AT 1300 TODAY.
--- NOTE | 2023-10-22 12:01 | PC.NURSE ---
RN [phone][facility] PT/SON AWARE OF PLAN OF CARE FOR TRANSFER TODAY TO REHAB VIA AMBULANCE.
--- NOTE | 2023-10-22 12:04 | PC.NURSE ---
PT'S HCP (CHRISTIANO SHARMA) CALLED STATING THAT SHE WILL BE VISITING PT AND BRINGING HIM A HAMBURGER THAT WAS PROMISED TO THE PT BY HER. PT IS RESTING. RESP EVEN AND UNLABORED.
[2023-10-22 13:47] VITALS: BP 103/47; PULSE 82; RESP 24; TEMP 36.8; O2SAT 92
== END 2023-10-22 14:45 | disposition skilled nursing facility (03) ==
PROVIDERS: Physician Assistant Medical; Emergency Provider Emergency Medicine Emergency Medical Services; PCP Family Medicine
DX: S32.9XXA Fracture of unspecified parts of lumbosacral spine and pelvis, initial encounter for closed fracture (principal); S32.592A Other specified fracture of left pubis, initial encounter for closed fracture; R26.2 Difficulty in walking, not elsewhere classified; M25.552 Pain in left hip; R51.9 Headache, unspecified; M54.2 Cervicalgia; X58.XXXA Exposure to other specified factors, initial encounter; Y93.9 Activity, unspecified; Y92.9 Unspecified place or not applicable; Y99.9 Unspecified external cause status; Z79.899 Other long term (current) drug therapy
CPT/HCPCS: 36415; 70450; 72125; 73700; 80048; 80076; 83690; 84484; 85025; 85610; 85730; 93005; 97162; 99284

== ENCOUNTER → 2023-10-21 15:12 | Outpatient (BNV) | payer MEDICARE, SELFPAY | PROVIDERS: Emergency Provider Emergency Medicine Emergency Medical Services; PCP Family Medicine; Visit Provider Internal Medicine | DX: R55 Syncope and collapse (principal) | CPT/HCPCS: 93010 ==

== ENCOUNTER 2023-11-03 10:52 | Outpatient (REF) | payer OTHER, MEDICARE, SELFPAY ==
--- NOTE | ~2023-11-03 | XR_ITS ---
EXAMINATION: XR PELVIS CLINICAL INFORMATION: Pain in the hip COMPARISON: CT scan of the left hip 10/21/2023. CT scan the abdomen and pelvis November 2022 TECHNIQUE: AP view of the pelvis. FINDINGS: Previously noted left acetabular/anterior column fracture not visualized. There is cystic change along the femoral neck unchanged. The bones and joints in the pelvis normal. Spondylosis of the partially visualized lumbar sacral spine unchanged. XR/XR pelvis 1-2V IMPRESSION: 1. Previously noted left acetabular/anterior column fracture not visualized on this x-ray. This is likely due to differences in imaging modality CT more sensitive to small nondisplaced fractures. Incomplete fracture healing in 2 weeks is unlikely. 2. No acute abnormality.
== END 2023-11-03 10:53 | disposition home or self-care (01) ==
LOC: HO.HOSX 10:52
PROVIDERS: Visit Provider Physician Assistant
DX: M25.552 Pain in left hip (principal); S32.592A Other specified fracture of left pubis, initial encounter for closed fracture; W18.30XA Fall on same level, unspecified, initial encounter; Y93.9 Activity, unspecified; Y92.9 Unspecified place or not applicable; Y99.9 Unspecified external cause status
CPT/HCPCS: 72170; 99202

== ENCOUNTER 2023-11-03 13:25 | Outpatient (AMB) | payer MEDICARE, SELFPAY ==
--- NOTE | 2023-11-03 13:37 | MHC.OFFVIS ---
Intake Vital Signs 11/03/23 13:40 Height 5 ft 3 in Weight 128 lb BMI 22.7 Intake Visit Reasons: fc- Fracture of left pelvis Intake Note: Annika a 73 year old female presents today in a wheelchair for an ER follow up of left pelvis fx, DOI 10/21/23. Patient reports that she fell, presented to [facility] ED due to pain and unable to bear weight. She continues to be non weight bearing. Her pain is located in her groin that radiates down her thigh. States pain is worse with tying to get out of bed. Allergies codeine [CODEINE] Allergy (Intermediate, Verified 11/03/23 13:45) DELIRIUM HPI fc- Fracture of left pelvis HPI Details 73-year-old female who presents to the office today in a wheelchair for an ER follow-up of left pelvis injury s/p fall, 10/21/23. She was seen at ED for her pain and inability to weight bear and has been non weight bearing since her DOI. She states she has pain in her groin region which radiates down to her thigh. Her pain is aggravated with sitting on chair and trying to get out of her bed. She is working with physical therapy for her pain. [facility] Medical History Achalasia Ataxia Seizures Short-term memory loss Depression Cerebral amyloid angiopathy Elevated cholesterol HTN (hypertension) Hx of osteoporosis Hx of irritable bowel syndrome GERD (gastroesophageal reflux disease) Surgical History Hx of parathyroidectomy History of esophagogastroduodenoscopy (EGD) H/O colonoscopy Social History Alcohol intake: current Alcohol intake frequency: 0-2 drinks per day Alcohol type: wine Patient Tobacco Use Status: Never used Tobacco Advance Directives Date on File: 10/22/23 Current occupational status: retired Current occupation: rt hand Review of Systems Const All systems reviewed & are unremarkable except as noted in HPI and below Physical Exam Vital Signs: BMI result Body Mass Index 22.7 Extrem Other: Left hip: Normal to inspection. Mild discomfort with active flexion of the hip. She tolerates passive flexion and ROM of the left hip. NVI. Office Procedures Fracture Care Fracture Billing Code: Fracture Billing Code Results Reviewed Results Reviewed: Xrays were obtained in the office today and personally reviewed by me of the pelvis show non displaced inferior pubic rami fx left Assessment & Plan Assessment & Plan (1) Fracture of left inferior pubic ramus: Code(s): S32.592A - Other specified fracture of left pubis, initial encounter for closed fracture Qualifiers: Encounter type: initial encounter Fracture type: closed Qualified Code(s): S32.592A - Other specified fracture of left pubis, initial encounter for closed fracture Plan She will transition to toe touch weight bearing with a walker as tolerated. She will work on strength training upper body training with ADLs. I would like to see her back in 6 weeks, sooner if needed. Orders: Orders XR pelvis 1-2V Today M25.559 - Pain in unspecified hip Patient Instructions: Scribed for Geovani Parker PA-C, by Gilles Lazar medical service technician, on 11/03/2023 at 1:45 PM EST. IGeovani PA-C, have personally reviewed and agree with the information entered by the scribe. Coding Level of Care Code New Pt Level 3 (95309) Diagnoses Closed fracture of left inferior pubic ramus, initial encounter S32.592A Encounter type: initial encounter Fracture type: closed CPT Codes Fracture Care - Fracture Billing Code: Fracture Billing Code ([id number])
[2023-11-03 13:40] VITALS: BMI 22.7
== END 2023-11-03 14:13 | disposition home or self-care (01) ==
PROVIDERS: PCP Family Medicine; Visit Provider Physician Assistant
DX: S32.592A Other specified fracture of left pubis, initial encounter for closed fracture (principal); W19.XXXA Unspecified fall, initial encounter
CPT/HCPCS: 99203; 99213

== ENCOUNTER 2023-12-15 08:39 | Outpatient (AMB) | payer MEDICARE, SELFPAY ==
--- NOTE | 2023-12-15 08:43 | A.OFFVIS_ITS ---
Intake Intake Visit Reasons: ov- pubic ramus fx, DOI 10/21/23 Intake Note: Annika a 73 year old female presents today in a wheelchair for an follow up of left pelvis fx, DOI 10/21/23. Patient reports she is working on strength training upper body. She is doing well with no concerns Allergies codeine [CODEINE] Allergy (Intermediate, Verified 11/03/23 13:45) DELIRIUM HPI ov- pubic ramus fx, DOI 10/21/23 HPI Details 73-year-old female who returns to the [facility] today in a wheelchair for follow-up of pubic ramus fracture, 10/21/23. She experiences mild pain in her groin area with putting pressure. She is working on upper body strength training as instructed. She is doing well otherwise and she has no concerns today. [facility] Medical History Achalasia Ataxia Seizures Short-term memory loss Depression Cerebral amyloid angiopathy Elevated cholesterol HTN (hypertension) Hx of osteoporosis Hx of irritable bowel syndrome GERD (gastroesophageal reflux disease) Surgical History Hx of parathyroidectomy History of esophagogastroduodenoscopy (EGD) H/O colonoscopy Social History Alcohol intake: current Alcohol intake frequency: 0-2 drinks per day Alcohol type: wine Patient Tobacco Use Status: Never used Tobacco Advance Directives Date on File: 10/22/23 Current occupational status: retired Current occupation: rt hand Review of Systems Const All systems reviewed & are unremarkable except as noted in HPI and below Physical Exam Extrem Other: Left hip: Normal to inspection. No discomfort with active flexion of the hip. She tolerates passive flexion and ROM of the left hip. NVI. Results Reviewed Results Reviewed: Xrays were obtained in the office today and personally reviewed by me of the pelvis show non displaced inferior pubic rami fx left with interval healing Assessment & Plan Assessment & Plan (1) Fracture of left inferior pubic ramus: Code(s): S32.592A - Other specified fracture of left pubis, initial encounter for closed fracture Qualifiers: Encounter type: subsequent encounter Fracture type: closed Fracture healing: with routine healing Qualified Code(s): S32.592D - Other specified fracture of left pubis, subsequent encounter for fracture with routine healing Plan She will continue weight bearing as tolerated. She will begin outpatient physical therapy to work on gait training, and hip, glute and lumbar strengthening exercises. I would like to see her back in 6 weeks with x-rays, sooner if needed. Orders: Orders PT Evaluation and Treatment Today S32.592A - Other specified fracture of left pubis, initial encounter for closed fracture XR pelvis 1-2V Today M25.559 - Pain in unspecified hip Patient Instructions: Scribed for Geovani Parker PA-C, by Gilles Lazar medical support assistant, on 12/15/2023 at 8:45 AM EST. I, Geovani Parker PA-C, have personally reviewed and agree with the information entered by the scribe. Coding Level of Care Code Global (88713) Diagnoses Closed fracture of left inferior pubic ramus with routine healing, subsequent encounter S32.592D Encounter type: subsequent encounter Fracture type: closed Fracture healing: with routine healing
== END 2023-12-15 09:09 | disposition home or self-care (01) ==
PROVIDERS: PCP Family Medicine; Visit Provider Physician Assistant
DX: S32.592D Other specified fracture of left pubis, subsequent encounter for fracture with routine healing (principal)
CPT/HCPCS: 99213

== ENCOUNTER 2023-12-15 09:11 | Outpatient (REF) | payer MEDICARE, SELFPAY ==
--- NOTE | ~2023-12-15 | XR_ITS ---
EXAMINATION: XR PELVIS CLINICAL INFORMATION: Pain. COMPARISON: Pelvic radiograph dated 11/03/2023; CT head dated 10/21/2023.. TECHNIQUE: AP view of the pelvis. FINDINGS: No acute fracture or dislocation is seen. There is a healing fracture of the left inferior pubic ramus, with adjacent periosteal callus formation. Hip joint spaces are maintained. Alignment is anatomic. Sacroiliac joints and pubic symphysis are normal. No abnormal soft tissue calcifications. There are incompletely characterized degenerative changes of the lumbar spine. XR/XR pelvis 1-2V IMPRESSION: There is stable alignment of a healing fracture of the left inferior pubic ramus, with adjacent callus formation. No further fracture is appreciated radiographically.
== END 2023-12-15 09:12 | disposition home or self-care (01) ==
LOC: HO.HOSX 09:11
PROVIDERS: Visit Provider Physician Assistant
DX: S32.592D Other specified fracture of left pubis, subsequent encounter for fracture with routine healing (principal); X58.XXXD Exposure to other specified factors, subsequent encounter
CPT/HCPCS: 72170; 99212

== ENCOUNTER 2024-01-19 10:00 | Outpatient (RCR) | payer MEDICARE, SELFPAY ==
--- NOTE | 2023-12-31 16:38 | MHC.PT.EP ---
[facility] [place] Office [place] Office [place] Office [address] Paulo Bui [address] [phone] F: [phone] F: [phone] F: [phone] F: [phone] Physical Therapy Plan of Care Date of Evaluation: 12/31/23 Date of Surgery: N/A Diagnosis: closed fracture of left inferior pubic ramus (RL) Assessment: pt is a 73 y/o female presenting to physical therapy w/ referring diagnosis of closed fracture of left inferior pubic ramus. Impairments include pain, decreased range of motion, decreased strength, impaired functional mobility, impaired postural awareness, and altered ambulation mechanics. pt is a good candidate for skilled PT due to age, potential remediation of impairments, typical disease/condition progression and prognosis, comorbidities, and motivation. pt would benefit from skilled PT intervention to provide a tailored strengthening and stretching exercise program, functional training, gait training, postural re-training, neuromuscular re-education, modalities as needed for pain, equipment safety demonstration. Frequency and Duration: The patient will be seen 2x/wk for 4 wks Short Term Goals: pt will be I w/ HEP to promote self-management of condition. pt will improve L hip ABD strength by 1 MMT grade to normalize gait pattern on even ground. Detention Goals: pt will report a statistically significant improvement in self-reported outcome. LEFI, to promote return to PLOF. pt will ascend/descend 12 stairs w/ reciprocal pattern using railing. Treatment Plan: Modalities to reduce pain, spasms and effusion. Manual therapy to restore motion and function. Therapeutic exercise to improve strength and flexibility. Neuromuscular re-education for posture and balance. Therapeutic activities to return to functional activities of daily living. Electronically signed by: Sofi Cano PT, DPT Please sign and return to therapist. Thank you for your referral.
--- NOTE | 2024-01-30 08:34 | MHC.PT.DC ---
[facility] [place] Office [place] Office [place] Office [address] Paulo Bui [address] [phone] F: [phone] F: [phone] F: [phone] F: [phone] Physical Therapy Discharge Report Diagnosis: closed fracture of left inferior pubic ramus (RL) Date of Surgery: N/A Date of Evaluation: 12/31/23 Date of Discharge: 01/30/24 Treatments to Date: 7 Cancellations to Date: 1 No Shows to Date: 1 Discharge Status: Improved Function Independent with HEP Discharge Summary: pt mentioned overall she has no complaints. Her pain is minimal and she is able to do most if not all of the things she needs to at home. She is independent with her home exercise program and is D/C'd from this PT POC. Electronically signed by: Sofi Cano PT, DPT Please sign and return to therapist. Thank you for your referral.
== END 2024-01-30 08:35 | disposition home or self-care (01) ==
LOC: HO.PT 10:00
PROVIDERS: PCP Family Medicine; Visit Provider Physician Assistant
DX: S32.592D Other specified fracture of left pubis, subsequent encounter for fracture with routine healing (principal)
CPT/HCPCS: 97110; 97162; 97530

== ENCOUNTER 2024-01-22 08:46 | Outpatient (AMB) | payer MEDICARE, SELFPAY ==
--- NOTE | 2024-01-22 08:59 | A.OFFVIS_ITS ---
Intake Vital Signs 01/22/24 09:04 Height 5 ft 3 in Weight 128 lb BMI 22.7 Intake Visit Reasons: OV- pubic ramus fx, DOI 10/21/23-follow up Intake Note: Annika a 73 year old female presents today in a wheelchair for an follow up of left pelvis fx, DOI 10/21/23. Xrays updated. Patient reports she is doing well, states minimal pain. She has completed PT with yesterday being her last visit and feels she has gained stability. Allergies codeine [CODEINE] Allergy (Intermediate, Verified 01/22/24 09:03) DELIRIUM HPI OV- pubic ramus fx, DOI 10/21/23-follow up HPI Details 73-year-old female who returns to the [facility] today for a follow-up of pubic ramus fracture, 10/21/23. She states she has minimal pain in her hip however she is doing well overall. She has completed physical therapy yesterday with benefits. She has no other concerns today. [facility] Medical History Achalasia Ataxia Seizures Short-term memory loss Depression Cerebral amyloid angiopathy Elevated cholesterol HTN (hypertension) Hx of osteoporosis Hx of irritable bowel syndrome GERD (gastroesophageal reflux disease) Surgical History Hx of parathyroidectomy History of esophagogastroduodenoscopy (EGD) H/O colonoscopy Social History Alcohol intake: current Alcohol intake frequency: 0-2 drinks per day Alcohol type: wine Patient Tobacco Use Status: Never used Tobacco Advance Directives Date on File: 10/22/23 Current occupational status: retired Current occupation: rt hand Review of Systems Const All systems reviewed & are unremarkable except as noted in HPI and below Physical Exam Vital Signs: BMI result Body Mass Index 22.7 Extrem Other: Left hip: Normal to inspection. No discomfort with active flexion of the hip. She tolerates passive flexion and ROM of the left hip. NVI. Results Reviewed Results Reviewed: X-rays of the pelvis obtained in the office today show a well headed pubic ramus fracture with significant callus formation. Assessment & Plan Assessment & Plan (1) Fracture of left inferior pubic ramus: Code(s): S32.592A - Other specified fracture of left pubis, initial encounter for closed fracture Qualifiers: Encounter type: subsequent encounter Fracture healing: with routine healing Fracture type: closed Qualified Code(s): S32.592D - Other specified fracture of left pubis, subsequent encounter for fracture with routine healing Plan She will increase activity as tolerated. I did explain the importance of continuing with home exercises program for strength and stability. If symptoms persist or worsens, patient will contact the office, otherwise follow-up as needed. Orders: Orders XR pelvis 1-2V Today M25.559 - Pain in unspecified hip Patient Instructions: Scribed for Geovani Parker PA-C, by Gilles Lazar nuclear medical technologist, on 01/22/2024 at 9:00 AM EST. I, Geovani Parker PA-C, have personally reviewed and agree with the information entered by the scribe. Coding Level of Care Code Global (18677) Diagnoses Closed fracture of left inferior pubic ramus with routine healing, subsequent encounter S32.592D Encounter type: subsequent encounter Fracture healing: with routine healing Fracture type: closed
[2024-01-22 09:04] VITALS: BMI 22.7
== END 2024-01-22 09:29 | disposition home or self-care (01) ==
PROVIDERS: PCP Family Medicine; Visit Provider Physician Assistant
DX: S32.592D Other specified fracture of left pubis, subsequent encounter for fracture with routine healing (principal)
CPT/HCPCS: 99213

== ENCOUNTER 2024-01-22 15:06 | Outpatient (REF) | payer MEDICARE, SELFPAY ==
--- NOTE | ~2024-01-22 | XR_ITS ---
EXAMINATION: XR PELVIS CLINICAL INFORMATION: Hip pain. COMPARISON: 12/15/2023. TECHNIQUE: AP view of the pelvis. FINDINGS: No significant radiographic change compared with 12/15/2023. Examination demonstrates callus formation at previously seen fractures involving the left inferior pubic ramus and left acetabulum. No acute fracture or dislocation is appreciated. No lytic or sclerotic bony lesion is seen. Hip joint spaces appear maintained. Degenerative changes of the incidentally visualized portion of the lower lumbar spine, with lumbar levocurvature. XR/XR pelvis 1-2V IMPRESSION: No significant radiographic change compared with 12/15/2023.
== END 2024-01-22 15:07 | disposition home or self-care (01) ==
LOC: HO.HOSX 15:06
PROVIDERS: Visit Provider Physician Assistant
DX: S32.592D Other specified fracture of left pubis, subsequent encounter for fracture with routine healing (principal); M25.552 Pain in left hip; X58.XXXD Exposure to other specified factors, subsequent encounter
CPT/HCPCS: 72170; 99212

== ENCOUNTER 2024-03-25 10:33 | Outpatient (REF) | payer MEDICARE, SELFPAY ==
[2024-03-25 11:18] LABS: MANUAL DIFF FLAG NO
[2024-03-25 11:27] LABS: Basophils Absolute Auto 0.1 X10*3/uL (0.0-0.2); Basophils Percent Auto 1.5 % (0-2); Eosinophils Absolute Auto 0.1 X10*3/uL (0.0-0.4); Eosinophils Percent Auto 2.4 % (0-4); Hematocrit 40.6 % (37.0-47.0); Hemoglobin 13.1 g/dl (12.0-16.0); Imm Gran Abs Auto 0.02 X10*3/uL (0.00-0.03); Imm Gran Pct Auto 0.3 % (0.0-0.4); Lymphocytes Absolute Auto 1.5 X10*3/uL (1.2-4.9); Lymphocytes Percent Auto 24.7 % (20-40); Mean Corpuscular HGB Conc 32.3 g/dl (31.0-35.0); Mean Corpuscular Hemoglobin 28.7 pg (27.0-33.0); Mean Platelet Volume 9.9 fL (9.4-12.3); Monocytes Absolute Auto 0.5 X10*3/uL (0.1-1.2); Monocytes Percent Auto 7.9 % (2-11); Neutrophils Absolute Auto 3.7 x10*3/uL (2.0-8.3); Neutrophils Percent Auto 63.2 % (45-73); Platelet Count 221 X10*3/uL (160-400); Red Blood Count 4.56 X10*6/uL (4.20-5.50); Red Cell Distribution Width 13.8 % (11.0-16.0); White Blood Count 5.9 X10*3/uL (4.8-10.8)
[2024-03-25 12:21] LABS: Alanine Aminotransferase 14 U/L (0-31); Albumin Level 4.5 g/dL (3.5-5.0); Alkaline Phosphatase 107 U/L (39-117); Anion Gap 13 (12-20); Aspartate Amino Transferase 15 U/L (5-31); Bilirubin Total 0.3 mg/dL (0.0-1.0); Blood Urea Nitrogen 13 mg/dL (9-16); Calcium 9.7 mg/dL (8.4-10.2); Carbon Dioxide 27 mmol/L (22-29); Chloride 104 mmol/L (96-108); Estimated Glomerular Filt Rate > 60; Glucose Random 98 mg/dL (60-115); Potassium 4.3 mmol/L (3.3-5.1); Sodium 140 mmol/L (135-145); Total Protein 7.7 g/dL (6.5-8.0)
== END 2024-03-25 10:34 | disposition home or self-care (01) ==
LOC: HO.10HDL 10:33
PROVIDERS: Visit Provider Family Medicine
DX: I10 Essential (primary) hypertension (principal); D64.9 Anemia, unspecified; H81.4 Vertigo of central origin
CPT/HCPCS: 36415; 80053; 85025

== ENCOUNTER 2024-11-12 13:47 | Emergency (ER) | payer MEDICARE, SELFPAY ==
--- NOTE | ~2024-11-12 | CT_ITS ---
EXAMINATION: CT THORACIC SPINE WITHOUT CONTRAST CT LUMBAR SPINE WITHOUT CONTRAST CLINICAL INFORMATION: Fall. Pain. Swelling. COMPARISON: CT chest/abdomen/pelvis dated 12/05/2022. TECHNIQUE: Contiguous axial CT images of the thoracic spine as well as contiguous axial CT images of the lumbar spine were obtained without contrast. Sagittal and coronal reformats were provided and reviewed. This CT examination was performed using dose optimization techniques as appropriate, variously including the following: *Automated exposure control *Adjustment of mA and/or kV according to patient size (this includes techniques or standardized protocols for targeted exams where dose is matched to indication/reason for exam; i.e. extremities or head) *Use of iterative reconstruction technique DOSE: 1806 mGy-cm FINDINGS: THORACIC SPINE: Normal vertebral body alignment. The thoracic kyphosis is maintained. No acute fracture or subluxation. No loss of vertebral body or intervertebral disc height. Tiny anterior endplate osteophytes within the lower thoracic spine. Mild multilevel bilateral facet arthropathy. No concerning lytic or blastic osseous lesion. The visualized paraspinal soft tissues are unremarkable. No soft tissue mass or fluid collection. Moderate, sliding hiatal hernia. The visualized lungs are clear. No significant central canal or neural frontal stenosis. Evaluation for disc bulges and soft tissue stenosis limited on CT examination. LUMBAR SPINE: Levocurvature of the lumbar spine is unchanged. The lumbar lordosis is maintained. No acute fracture or subluxation. No loss of vertebral body height. Multilevel loss of intervertebral disc height with degenerative endplate changes, most severe at T12-L1, L3-L4, and L5-S1, progressed when compared to the prior CT. Multilevel bilateral facet arthropathy. No concerning lytic or blastic osseous lesion. Unremarkable paraspinal soft tissues. Diverticulosis without evidence of acute diverticulitis. [id number]-[id number] multilevel bilateral neural foraminal stenosis within the lumbar spine. Evaluation for disc bulges and stenosis significantly limited on CT examination. CT/CT thoracic spine wo IV con IMPRESSION: THORACIC SPINE: 1. No acute fracture or subluxation. 2. Mild degenerative disc disease and bilateral facet arthropathy. 3. Moderate, sliding hiatal hernia. LUMBAR SPINE: 1. No acute fracture or subluxation. 2. Levocurvature of the lumbar spine is unchanged. 3. Multilevel degenerative disc disease and bilateral facet arthropathy with [id number] multilevel bilateral neural foraminal stenosis. Evaluation for disc bulges and stenosis significantly limited on CT examination. Electronically signed by: Isauro Amado MD 11/12/2024 04:49 PM [facility]
--- NOTE | ~2024-11-12 | XR_ITS ---
EXAMINATION: XR HAND/WRIST, RIGHT CLINICAL INFORMATION: pain, injury COMPARISON: None available. TECHNIQUE: PA, lateral, oblique, and scaphoid views of the right hand and wrist. FINDINGS: Normal bone mineralization. No fracture, dislocation, or suspicious focal bony abnormality. There is normal alignment. Mild narrowing of the radiocarpal joint. Moderate to severe osteoarthrosis first CMC joint with abundant marginal spurring and subchondral sclerosis. No additional significant arthritis seen. Carpal bones are otherwise intact and normally aligned. Scaphoid is intact. There is no soft tissue abnormality. XR/XR hand wrist RT IMPRESSION: 1. No acute findings of the right hand and wrist. 2. Moderate to severe osteoarthrosis first CMC joint. Electronically signed by: Antwon Haddad MD 11/12/2024 02:55 PM [facility]
--- NOTE | ~2024-11-12 | CT_ITS ---
EXAMINATION: CT THORACIC SPINE WITHOUT CONTRAST CT LUMBAR SPINE WITHOUT CONTRAST CLINICAL INFORMATION: Fall. Pain. Swelling. COMPARISON: CT chest/abdomen/pelvis dated 12/05/2022. TECHNIQUE: Contiguous axial CT images of the thoracic spine as well as contiguous axial CT images of the lumbar spine were obtained without contrast. Sagittal and coronal reformats were provided and reviewed. This CT examination was performed using dose optimization techniques as appropriate, variously including the following: *Automated exposure control *Adjustment of mA and/or kV according to patient size (this includes techniques or standardized protocols for targeted exams where dose is matched to indication/reason for exam; i.e. extremities or head) *Use of iterative reconstruction technique DOSE: 1806 mGy-cm FINDINGS: THORACIC SPINE: Normal vertebral body alignment. The thoracic kyphosis is maintained. No acute fracture or subluxation. No loss of vertebral body or intervertebral disc height. Tiny anterior endplate osteophytes within the lower thoracic spine. Mild multilevel bilateral facet arthropathy. No concerning lytic or blastic osseous lesion. The visualized paraspinal soft tissues are unremarkable. No soft tissue mass or fluid collection. Moderate, sliding hiatal hernia. The visualized lungs are clear. No significant central canal or neural frontal stenosis. Evaluation for disc bulges and soft tissue stenosis limited on CT examination. LUMBAR SPINE: Levocurvature of the lumbar spine is unchanged. The lumbar lordosis is maintained. No acute fracture or subluxation. No loss of vertebral body height. Multilevel loss of intervertebral disc height with degenerative endplate changes, most severe at T12-L1, L3-L4, and L5-S1, progressed when compared to the prior CT. Multilevel bilateral facet arthropathy. No concerning lytic or blastic osseous lesion. Unremarkable paraspinal soft tissues. Diverticulosis without evidence of acute diverticulitis. [id number]-as-bwnpsesb multilevel bilateral neural foraminal stenosis within the lumbar spine. Evaluation for disc bulges and stenosis significantly limited on CT examination. CT/CT lumbar spine wo IV con IMPRESSION: THORACIC SPINE: 1. No acute fracture or subluxation. 2. Mild degenerative disc disease and bilateral facet arthropathy. 3. Moderate, sliding hiatal hernia. LUMBAR SPINE: 1. No acute fracture or subluxation. 2. Levocurvature of the lumbar spine is unchanged. 3. Multilevel degenerative disc disease and bilateral facet arthropathy with bhcz-ev-zswptomk multilevel bilateral neural foraminal stenosis. Evaluation for disc bulges and stenosis significantly limited on CT examination. Electronically signed by: Isauro Amado MD 11/12/2024 04:49 PM [facility]
--- NOTE | ~2024-11-12 | CT_ITS ---
EXAMINATION: CT CERVICAL SPINE WITHOUT CONTRAST CLINICAL INFORMATION: Fall, injury, pain COMPARISON: None available. TECHNIQUE: Spiral CT of the cervical spine was performed in axial plane from the petrous ridges to the thoracic inlet without IV contrast. Sagittal, coronal, and thin section axial reformatted images were constructed from the axial data set. This CT examination was performed using dose optimization techniques as appropriate, variously including the following: *Automated exposure control *Adjustment of mA and/or kV according to patient size (this includes techniques or standardized protocols for targeted exams where dose is matched to indication/reason for exam; i.e. extremities or head) *Use of iterative reconstruction technique DLP: 338 mGy-cm FINDINGS: Mild straightening of the normal lordosis. No scoliosis. Mild osteopenia present. No fractures, compression deformities, traumatic subluxations, or suspicious focal bony lesions. Alignment is normal. Craniocervical junction and C1-2 articulation are intact and normally aligned. Moderate disc degeneration noted C5-6 and C6-7. Associated uncinate spurring at these levels contributes to moderate to severe bilateral neural foraminal stenosis. Normal facet alignment. Mild degenerative facet changes bilaterally. There is no evidence of high-grade central canal stenosis. There is a disc osteophytic ridge at C5-6 oriented to the right, which may be causing right lateral recess narrowing. Small central disc protrusion C4-5 resulting in mild central canal narrowing. There is no prevertebral soft tissue abnormality. There is fatty change of the parotid glands. Slightly heterogeneous appearing thyroid gland with surgical clips abutting the left lobe inferiorly. Mild scarring in the lung apices with associated mild COPD. CT/CT cervical spine wo IV con IMPRESSION: 1. No CT evidence of acute cervical spine fracture or injury. 2. Chronic degenerative changes as detailed. Electronically signed by: Antwon Haddad MD 11/12/2024 04:40 PM [facility]
--- NOTE | ~2024-11-12 | CT_ITS ---
EXAMINATION: CT HEAD WITHOUT CONTRAST CLINICAL INFORMATION: Fall, pain, injury. COMPARISON: 10/21/2023, 02/01/2023, 12/05/2022. TECHNIQUE: Contiguous axial imaging was performed from the skull base to vertex without intravenous administration of contrast. This CT examination was performed using dose optimization techniques as appropriate, variously including the following: *Automated exposure control *Adjustment of mA and/or kV according to patient size (this includes techniques or standardized protocols for targeted exams where dose is matched to indication/reason for exam; i.e. extremities or head) *Use of iterative reconstruction technique DLP: 649 mGy-cm FINDINGS: There is no evidence of intracranial hemorrhage or extra-axial fluid collection. There is no mass effect, or edema. No CT evidence of acute territorial infarct. Ventricles, sulci, and cisterns are diffusely somewhat prominent, in keeping with mild cerebral and cerebellar volume loss. No hydrocephalus. No midline shift. Ex vacuo dilatation of the right lateral ventricle atrium and temporal horn secondary to encephalomalacia from old infarction right BILLING CUSTOMER SERVICE REPRESENTATIVE territory. This is unchanged. No hyperdense MCA sign. No insular ribbon sign. There are moderate confluent hypoattenuating white matter foci in the supratentorial region, in keeping with small vessel ischemic changes. Old lacunar type infarcts are present in the gangliocapsular regions, subinsular regions, and right cerebellar hemisphere. Normal pituitary. Mild atheromatous calcification of the bilateral carotid siphons and V4 segments vertebral arteries bilaterally. Globes and orbital contents image normally. No extracranial soft tissue abnormalities. The paranasal sinuses, mastoid air cells, and tympanic cavities are normally aerated. No suspicious bony abnormalities. Severe degenerative arthritis left TM joint. Moderate arthritis right TM joint. CT/CT head/brain wo IV con IMPRESSION: 1. No acute intracranial abnormality. No fractures. 2. Stable chronic changes including old right BILLING CUSTOMER SERVICE REPRESENTATIVE territory infarct. Electronically signed by: Antwon Haddad MD 11/12/2024 04:30 PM [facility]
[2024-11-12 14:15] VITALS: BP 148/83; PULSE 74; RESP 18; TEMP 36.7; O2SAT 98; BMI 27.8
--- NOTE | 2024-11-12 14:17 | ED_ITS ---
HPI - General Adult General Chief complaint: Fall Stated complaint: Fall - back pain Time Seen by Provider: 11/12/24 16:40 Source: patient Mode of arrival: ambulatory Limitations: no limitations History of Present Illness ED Provider: Lise Pena NP HPI narrative: Patient is a 74-year-old female who presents emergency department for evaluation after a mechanical slip and fall 4 days ago. Reports that she fell onto her right side. She was evaluated at the urgent care clinic that day was advised that she had a fracture in her right 2nd digit was placed in a Velcro splint. She reports at that time the finger was quite swollen and painful though this has resolved. She reports that she did not make urgent care staff aware that she did not fact sustained head strike, she ?did not want them to make a big deal about it since I had a history of brain bleeds?. She denies loss of consciousness, no use of anticoagulants. She is endorsing pain it is diffuse across the right back primarily in the lower back that is worse when she is lying supine. She denies any headache, dizziness, lightheadedness, neck pain, neck stiffness, chest pain, shortness of breath, difficulty breathing, numbness or tingling of the extremities, bladder bowel dysfunction/incontinence, unsteady gait, numbness or tingling Related Data Home Medications ?Medication ?Instructions ?Recorded ?Confirmed amlodipine 5 mg tablet 1 tab PO DAILY 03/29/21 10/21/23 lamotrigine 200 mg tablet 1 tab PO BID 03/29/21 10/21/23 pantoprazole 40 mg tablet,delayed 1 tab PO BID 03/29/21 10/21/23 release sertraline 50 mg tablet 50 mg PO QAM 10/21/23 10/21/23 Previous Rx's ?Medication ?Instructions ?Recorded walker #1 ea 10/29/21 Allergies Allergy/AdvReac Type Severity Reaction Status Date / Time codeine [CODEINE] Allergy Intermediate DELIRIUM Verified 11/12/24 14:18 Review of Systems Review of Systems: Yes all other systems are reviewed and are negative PMFSH Past Medical History Attestation statement: The following information was validated with the patient. Source: old records reviewed Medical History Achalasia Ataxia Seizures Short-term memory loss Depression Cerebral amyloid angiopathy Elevated cholesterol HTN (hypertension) Hx of osteoporosis Hx of irritable bowel syndrome GERD (gastroesophageal reflux disease) Surgical History Hx of parathyroidectomy History of esophagogastroduodenoscopy (EGD) H/O colonoscopy Social History Social History Alcohol intake: current Alcohol intake frequency: 0-2 drinks per day Alcohol type: wine Patient Tobacco Use Status: Never used Tobacco Advance Directives: Yes Advance Directives on File: Yes Advance Directives Date on File: 10/22/23 Current occupational status: retired Current occupation: rt hand Physical Exam ED Vital Signs: Vital Signs - 24 hr 11/12/24 14:15 Temperature 98.0 F Pulse Rate 74 Respiratory Rate 18 Blood Pressure 148/83 H Pulse Oximetry 98 Oxygen Delivery Method Room Air BMI result Body Mass Index 27.8 Appearance: Alert.?Oriented to person, place and time. No acute distress.?Normal affect. Head: Normocephalic atraumatic Eyes: Pupils equal, round and reactive to light. EOMI. Conjunctiva and sclera normal? No Erickson sign noted. No raccoon eyes noted ENT: No septal hematoma, nares patent bilaterally. External auditory canal normal tympanic membrane pearly nguyen and intact bilaterally. Dentition normal, no fractured teeth. No lesions or lacerations of oropharynx. Uvula midline. Moist mucous membranes. Neck: Normal inspection.? Neck supple.??No palpable tenderness, step-off, deformities. Back: Over the right scapula there is a large 15 cm X 10 cm soft palpable lump without overlying skin changes tenderness upon palpation. CVS: Heart sounds normal. Normal heart rate and rhythm.? Pulses normal.?? Respiratory: No respiratory distress.? Lung sounds clear to auscultation bilaterally?? Abdomen: Soft and non-tender. Normoactive bowel sounds. ?? Skin: Skin warm and dry.? Normal skin color.? ? Extremities: No lower extremity edema.? Full range of motion to right hand/wrist. Neuro: Moves all extremities spontaneously. Sensation intact bilaterally. CN II- XII intact. No focal neuro deficits. Course Course Course Narrative: RME performed by Karina Strong, PA-C. Patient is a 74 year old assigned f emale at presenting to the emergency department after a slip and fall. Patient states she injured her back and right hand after slipping on the ice awhile ago. Detailed physical exam and review of systems are deferred to the acute care assistant. Imaging ordered. Patient placed back in the waiting room pending room availability and results. Medical Decision Making Medical Decision Making MDM Narrative: Patient is a 74 year old female with past medical history of seizures, osteoporosis, IBS, GERD, depression, cerebral amyloid angiopathy passed the, ataxia, achalasia, reported history of 3 prior brain believes due to ?leaky vessels? presenting for evaluation after mechanical slip and fall landing onto the right side with head strike as per HPI this occurred 4 days ago. 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 Patient reports that she was told by urgent Care that she had a fracture to the 2nd finger she does state that at the time of initial evaluation she had significant swelling and pain to the finger which has since resolved. CT of the head cervical thoracic and lumbar spine are without evidence of acute fracture. No evidence of ICH. There is however degenerative changes of the lumbar spine which patient states she was previously made aware of. She has no focal neurological deficits or findings concerning for cauda equina syndrome. She does have a large lump over the right scapula, perhaps may be a hematoma given family's report that this is new in onset since the fall, however I do not appreciate overlying skin changes, ecchymosis, tenderness upon palpation. It is soft and mobile similar to what I would anticipate with a large lipoma, patient does not believe that there was any prior lump to this area, though I did discuss the possibility of previous lipoma that perhaps has enlarged with localized swelling after the recent injury. She is eager for discharge home ambulatory with a steady gait, moving all extremities without any difficulty. Discussed conservative treatment. Advised outpatient follow-up with primary care doctor. Reviewed worrisome signs and symptoms that would warrant re- evaluation in the emergency department. All questions answered. Stable for discharge Differential Diagnosis Differential Diagnoses: The differential diagnosis associated with the presentation includes (See narrative above) Admission/Observation Consideration of admission/observation: Escalation of care including admission/observation considered (See narrative above) Independent Interpretation I performed an independent interpretation of an: Plain X-Ray (No acute fracture of the hand/wrist) and CT Scan (No ICH or skull fracture) Radiology Impression Discussion of test interpretation with radiology: I have reviewed the radiologist's reading. Radiologist Impression: CT/CT head/brain wo IV con IMPRESSION: 1. No acute intracranial abnormality. No fractures. 2. 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 CT/CT cervical spine wo IV con IMPRESSION: 1. No CT evidence of acute cervical spine fracture or injury. 2. Chronic degenerative changes as detailed. CT/CT thoracic spine wo IV con IMPRESSION: THORACIC SPINE: 1. No acute fracture or subluxation. 2. Mild degenerative disc disease and bilateral facet arthropathy. 3. Moderate, sliding hiatal hernia. LUMBAR SPINE: 1. No acute fracture or subluxation. 2. Levocurvature of the lumbar spine is unchanged. 3. Multilevel degenerative disc disease and bilateral facet arthropathy with [id number] multilevel bilateral neural foraminal stenosis. Evaluation for disc bulges and stenosis significantly limited on CT examination. XR/XR hand wrist RT IMPRESSION: 1. No acute findings of the right hand and wrist. 2. Moderate to severe osteoarthrosis first CMC joint. Independent Historian Clinical information obtained from an independent historian. History obtained from or confirmed by: Other (Son) External Record Review External record reviewed: Outpatient record Prescription Management I considered prescription management with: Pain Medication Chronic Conditions Patient?s care impacted by: Other (See narrative above) Discharge Plan Discharge Clinical Impression: Contusion of back wall of thorax, Degeneration of lumbar intervertebral disc, Arthropathy of lumbar facet joint Patient Disposition: Home, Self-Care Instructions: Degenerative Disc Disease (ED), Lower Back Exercises (ED), Contusion in Adults (ED) Prescriptions: No Action lamotrigine 200 mg tablet 1 tab PO BID amlodipine 5 mg tablet 1 tab PO DAILY pantoprazole 40 mg tablet,delayed release (DR/EC) 1 tab PO BID (DME) walker Misc See Rx Instructions .Route Qty: 1 0RF Rx Instructions: As directed sertraline 50 mg tablet 50 mg PO QAM Referrals: Jeremías Shen MD [Primary Care Provider] - Print Language: Persian
--- OUTSIDE RECORDS SUMMARY | 2024-11-12 16:28 | XMS_ITS | Patient Health Record ---
Author Organization [facility] Address [address] [place] [id number] Care Team Providers Care Audit Control Clerk Name Role Phone Ac JERRY, Jeremías Primary Care Provider UnavailAlfred Mccray Jr Unavailable [phone] ALLERGIES Allergen (clinical drug ingredient) Drug/Non Drug Allergy documented on EMR Reaction Allergy Type Onset Date Status codeine Codeine Sulfate Unknown Drug Allergy A ctive REASON FOR REFERRAL No Information MEDICATIONS Medication SIG (Take, Route, Frequency, Duration) Notes Start Date End Date Status amLODIPine Besylate 5 MG TAKE 1 TABLET B Y MOUTH EVERY DAY Oral for 30 Active lamoTRIgine 150 1 tablet Orally Twic e a day Active Omeprazole 10 MG 2 capsules Orally On ce a day for 30 day(s) Active Sertraline HCl 50 MG 1 tablet Orally Onc e a day Active MiraLax (colon prep) 8.3 ounce ((238) grams mixed with Gatorade or Crystal Light orally begin at 5:00 p.m. the day before the procedure for 1 day 03/08/2021 Active IMMUNIZATIONS Vaccine Route Administration Date Status Comme nts Influenza Unknown 07/18/2020 Administered Influenza Unknown 03/03/2019 Refused SOCIAL HISTORY Tobacco Use: Social History Observation Description Date Details (start date - stop date) Former Smoker NA - NA Sex Assigned At : Social History Observation Description Sex Assigned At Unknown Tobacco Use/Smoking Question Answer Notes Patient is a former smoker How long has it been since you last smoked? 1-5 years Alcohol Screen Question Answer Notes Did you have a drink contain ing alcohol in the past year? Yes How often did you have a dri nk containing alcohol in the past year? 2 to 4 times a month (2 points) How many drinks did you have on a typical day when you were drinking in the past year? 1 or 2 drinks (0 point) How often did you have 6 or more drinks on one occasion in the past year? Never (0 point) Points 2 Interpretation Negative PROBLEMS Problem Type ICD Code Onset Dates Problem Status W/U Status Risk SNOMED Code Notes Problem GERD with esophagitis (K21.0) Active confirmed 160703356 Problem Colon cancer screening (Z12.11) Active confirmed 598936372 Problem Abnormal CT scan, colon (R93.3) Active confirmed 231682146 Problem Gastroesophageal reflux disease without esophagitis (K21.9) Active confirmed 749005017 PLAN OF TREATMENT Future Test Test Name Order Date UPPER GI ENDOSCOPY 07/16/2017 COLONOSCOPY 07/16/2017 UPPER GI ENDOSCOPY 01/12/2020 COLONOSCOPY 01/12/2020 UPPER GI ENDOSCOPY 03/08/2021 COLONOSCOPY 03/08/2021 Insurance Providers Payer Name Payer Address Payer Phone Subscriber Number Group Number Insured Name Patient Relationship to Insured Coverage Start Date Coverage End Date MED[place]ARE OF [place] [address] [place] [address] [id number] BRADLEY HARP Self - patient is the insured [facility] SUPPLEMENTAL PLAN [address] [place] [address] [id number] BRADLEY HARP Self - patient is the insured MEDICAL (GENERAL) HISTORY Medical History History ICD Code gastroesophageal reflux disease subarachnoid bleed x4 visually impaired hx of stroke colon polyps Surgical History Surgery Date(Month/Year) hysterectomy reconstruction surgery to try and get pr egnant bladder suspension appendectomy parathyroidectomy
[2024-11-12 18:17] VITALS: BP 148/83; PULSE 74; RESP 18; TEMP 36.7; O2SAT 98
== END 2024-11-12 18:17 | disposition home or self-care (01) ==
PROVIDERS: Emergency Provider Emergency Medicine; PCP Family Medicine
DX: S20.211A Contusion of right front wall of thorax, initial encounter (principal); M51.369 Other intervertebral disc degeneration, lumbar region without mention of lumbar back pain or lower extremity pain; R51.9 Headache, unspecified; M54.2 Cervicalgia; M47.816 Spondylosis without myelopathy or radiculopathy, lumbar region; M25.531 Pain in right wrist; M79.641 Pain in right hand; W19.XXXA Unspecified fall, initial encounter; Y93.89 Activity, other specified; Y92.89 Other specified places as the place of occurrence of the external cause; Y99.8 Other external cause status; Z79.899 Other long term (current) drug therapy
CPT/HCPCS: 70450; 72125; 72128; 72131; 73110; 73130; 99282; 99284

== ENCOUNTER → 2024-11-12 14:17 | Outpatient (BNV) | payer MEDICARE, SELFPAY | PROVIDERS: Emergency Provider Emergency Medicine; PCP Family Medicine; Visit Provider Radiology Diagnostic Radiology | DX: M50.322 Other cervical disc degeneration at C5-C6 level (principal); M50.323 Other cervical disc degeneration at C6-C7 level; M50.221 Other cervical disc displacement at C4-C5 level; Z03.89 Encounter for observation for other suspected diseases and conditions ruled out | CPT/HCPCS: 70450; 72125 ==

== ENCOUNTER 2025-02-10 11:03 | Outpatient (REF) | payer MEDICARE, SELFPAY ==
[2025-02-10 11:14] LABS: MANUAL DIFF FLAG NO
[2025-02-10 11:36] LABS: Basophils Absolute Auto 0.1 X10*3/uL (0.0-0.2); Basophils Percent Auto 1.2 % (0-2); Eosinophils Absolute Auto 0.1 X10*3/uL (0.0-0.4); Eosinophils Percent Auto 1.7 % (0-4); Hematocrit 38.9 % (37.0-47.0); Hemoglobin 12.1 g/dl (12.0-16.0); Imm Gran Abs Auto 0.03 X10*3/uL (0.00-0.03); Imm Gran Pct Auto 0.5 % (0.0-0.4); Lymphocytes Absolute Auto 1.6 X10*3/uL (1.2-4.9); Lymphocytes Percent Auto 23.8 % (20-40); Mean Corpuscular HGB Conc 31.1 g/dl (31.0-35.0); Mean Corpuscular Hemoglobin 26.7 pg (27.0-33.0); Mean Corpuscular Volume 85.9 fL (80.0-98.0); Mean Platelet Volume 9.6 fL (9.4-12.3); Monocytes Absolute Auto 0.5 X10*3/uL (0.1-1.2); Monocytes Percent Auto 7.4 % (2-11); Neutrophils Absolute Auto 4.3 x10*3/uL (2.0-8.3); Neutrophils Percent Auto 65.4 % (45-73); Platelet Count 213 X10*3/uL (160-400); Red Blood Count 4.53 X10*6/uL (4.20-5.50); Red Cell Distribution Width 14.5 % (11.0-16.0); White Blood Count 6.6 X10*3/uL (4.8-10.8)
[2025-02-10 12:16] LABS: Alanine Aminotransferase 19 U/L (0-31); Albumin Level 4.4 g/dL (3.5-5.0); Alkaline Phosphatase 99 U/L (39-117); Anion Gap 10 (12-20); Aspartate Amino Transferase 22 U/L (5-31); Bilirubin Total 0.3 mg/dL (0.0-1.0); Blood Urea Nitrogen 20 mg/dL (9-16); Calcium 9.3 mg/dL (8.4-10.2); Carbon Dioxide 29 mmol/L (22-29); Chloride 108 mmol/L (96-108); Estimated Glomerular Filt Rate > 60; Glucose Random 94 mg/dL (60-115); Potassium 4.9 mmol/L (3.3-5.1); Sodium 142 mmol/L (135-145); Total Protein 7.2 g/dL (6.5-8.0)
== END 2025-02-10 11:04 | disposition home or self-care (01) ==
LOC: HO.LAB 11:03
PROVIDERS: PCP Family Medicine; Visit Provider Family Medicine
DX: I10 Essential (primary) hypertension (principal); R53.83 Other fatigue; R27.0 Ataxia, unspecified
CPT/HCPCS: 36415; 80053; 85025

== ENCOUNTER 2025-04-19 13:01 | Outpatient (REF) | payer MEDICARE, SELFPAY ==
[2025-04-19 14:26] LABS: Anion Gap 11 (12-20); Blood Urea Nitrogen 15 mg/dL (9-16); Carbon Dioxide 28 mmol/L (22-29); Chloride 106 mmol/L (96-108); Estimated Glomerular Filt Rate > 60; Sodium 141 mmol/L (135-145)
--- OUTSIDE RECORDS SUMMARY | 2025-04-19 14:29 | XMS_ITS | Patient Health Record ---
Author Organization [facility] Address [address] [place] [phone] Care Team Providers Care Ip/Mosaic Technician Name Role Phone Ac JERRY, Jeremías Primary Care Provider UnavailAlfred Mccray Jr Unavailable Allergies Allergen (clinical drug ingredient) Drug/Non Drug Allergy documented on EMR Reaction Allergy Type Onset Date Status codeine Codeine Sulfate Unknown Drug Allergy A ctive Reason For Referral No Information Medications Medication SIG (Take, Route, Frequency, Duration) Notes [...] the procedure for 1 day 03/08/2021 Active Immunizations Vaccine Route Administration Date Status Comme nts Influenza Unknown 07/18/2020 Administered Influenza Unknown 03/03/2019 Refused Social History Tobacco Use: Social History Observation Description Date Details (start date - stop date) Former Smoker NA - NA Tobacco Use/Smoking Question Answer Notes Patient is [...] Never (0 point) Points 2 Interpretation Negative Problems Problem Type SNOMED Code ICD Code Onset Dates Problem Status W/U Status Risk Notes Problem 894491815 Colon cancer screening (Z12.11) Active confirmed Problem 149079232 Gastroesophageal reflux disease without esophagitis (K21.9) Active confirmed Problem 563223036 GERD with esophagitis (K21.0) Active confirmed Problem 923221603 Abnormal CT scan , colon (R93.3) Active confirmed Plan Of Treatment Future Test Test Name Order Date UPPER GI ENDOSCOPY 07/16/2017 COLONOSCOPY 07/16/2017 UPPER GI ENDOSCOPY 01/12/2020 COLONOSCOPY 01/12/2020 UPPER GI ENDOSCOPY 03/08/2021 COLONOSCOPY 03/08/2021 Insurance Providers Payer Name Payer Address Payer Phone Subscriber Number Group Number Insured Name Patient Relationship to Insured Coverage Start Date Coverage End Date MED[place]ARE OF [place] [address] [facility] [place] [address] [id number] BRADLEY HARP Self - patient is the insured [facility] [employer] [address] [place] [address] [id number] BRADLEY HARP Self - patient is the insured Medical (General) History Medical History History ICD Code gastroesophageal reflux disease subarachnoid bleed x4 visually impaired hx of stroke colon polyps Surgical History Surgery Date(Month/Year) hysterectomy reconstruction surgery to try and get pr egnant bladder suspension appendectomy parathyroidectomy
== END 2025-04-19 13:02 | disposition home or self-care (01) ==
LOC: HO.LAB 13:01
PROVIDERS: PCP Family Medicine; Visit Provider Family Medicine
DX: I10 Essential (primary) hypertension (principal)
CPT/HCPCS: 36415; 80051; 82565; 84520

== ENCOUNTER 2025-08-25 12:43 | Outpatient (REF) | payer MEDICARE, SELFPAY | END 2025-08-25 12:44 | disposition home or self-care (01) | LOC: HO.MAMMO 12:43 | PROVIDERS: PCP Physician Assistant Medical; Visit Provider Physician Assistant Medical | DX: Z12.31 Encounter for screening mammogram for malignant neoplasm of breast (principal) | CPT/HCPCS: 77063; 77067 ==

== ENCOUNTER → 2025-08-25 13:15 | Outpatient (BNV) | payer MEDICARE, SELFPAY | PROVIDERS: PCP Physician Assistant Medical; Visit Provider Radiology Body Imaging | DX: Z12.31 Encounter for screening mammogram for malignant neoplasm of breast (principal) | CPT/HCPCS: 77063; 77067 ==

== ENCOUNTER 2025-09-11 12:28 | Emergency (ER) | payer MEDICARE, SELFPAY ==
--- OUTSIDE RECORDS SUMMARY | 2024-11-02 12:08 | XMS_ITS | Encounter Summary ---
Author Organization [facility] Address [address] [place] [id number] Phone Care Team Providers Care Grades 1 Through 5 Teacher Name Role Phone Jeremías Shen MD Primary Care Provider [phone] Encounter Details Date Type Department Care Team (Late st Contact Info) Description 11/02/2024 11:08 AM EST Hospital Encounter [facility] [address] [place] [id number] Amalia Christiansen FNP [address] [place] [id number] [email or web address] Social History Tobacco Use Types Packs/Day Years Used Date Smoking Tobacco: Former Cigarettes Smokeless Tobacco: Never Education Answer Date Recorded Are you interested in more education? Not on jesse e 03/14/2023 Are you concerned about learning? Not on file 03/14/2023 No 03/14/2023 No 03/14/2023 Digital Access Answer Date Recorded No 04/12/2023 No 04/12/2023 Reliable internet access at home? Not on file 04/12/2023 Device with a working camera? Not on file Comments Unknown Sex and Gender Information Value Date Recorded Sex Assigned at Female 04/10/2022 1:50 PM EDT Legal Sex Female 10:02 PM EDT Gender Identity Female 04/10/2022 1:50 PM EDT Sexual Orientation Straight 04/10/2022 1: 50 PM EDT documented as of this encounter Plan of Treatment Not on file documented as of this encounter Procedures Procedure Name Priority Date/Time Associated Diagnosis Comments XR HAND 3 OR MORE VIEWS (RIGHT) Urgent/patient waiting 11/02/2024 11:14 AM EST Fall, initial encounter documented in this encounter Results * XR HAND 3 OR MORE VIEWS (RIGHT) (11/02/2024 11:14 AM EST) Anatomical Region Laterality Modality Hand Right Computed Radiogr aphy 11/02/2024 11:4 7 AM EST Impressions 11/02/2024 12:12 PM EST No acute fracture or dislocation. ATTESTATION: Tom Kendall as teaching physician, have reviewed the images for this case and if necessary edited the report originally created by Ramon Sky MD. Narrative 11/02/2024 12:12 PM EST XR HAND 3 OR MORE VIEWS (RIGHT) Referring clinician's provided indication for this examination in [facility]: S/P Fall; pain right 5th mcp COMPARISON: None FINDINGS: No acute fracture or malalignment. Severe osteoarthritis of the first CMC. Mild osteoarthritis of the STT, first MCP, scattered interphalangeal joints. No soft tissue swelling. Procedure Note Tom García MD - 11/02/2024 XR HAND 3 OR MORE VIEWS (RIGHT) Referring clinician's provided indication for this examination in [facility]:S/P Fall; pain right 5th mcp COMPARISON: None FINDINGS: No acute fracture or malalignment. Severe osteoarthritis of the first CMC.Mild osteoarthritis of the STT, first MCP, scattered interphalangealjoints. No soft tissue swelling. IMPRESSION: No acute fracture or dislocation. ATTESTATION: Tom Kendall as teaching physician, have reviewed theimages for this case and if necessary edited the report originally createdby Ramon Sky MD. Amalia Christiansen EXCHANGE FLOOR MANAGER IMG XR UPPER EXTREMITY Kesha l Result documented in this encounter Visit Diagnoses Not on filedocumented in this encounter Care Teams Grades 1 Through 5 Teacher Relationship Specialty Start Date End Date Jeremías Shen MD [address] [place] [address] [place] [id number] PCP - General Internal Medicine 06/22/19 documented as of this encounter Additional Source Comments The information contained in this document represents components of the legal health record. It is not the complete legal health record.[facility]
--- OUTSIDE RECORDS SUMMARY | 2024-11-25 13:05 | XMS_ITS | Encounter Summary ---
Author Organization [facility] Address [address] [place] [phone] Phone Care Team Providers Care Analysis Reporting Developer Name Role Phone Jeremías Shen MD Primary Care Provider Encounter Details Date Type Department Care Team (Late st Contact Info) Description 11/25/2024 12:05 PM EST Hospital Encounter [facility] [address] [place] [phone] Amalia Christiansen FNP [address] [place] [phone] [email or web address] Social History Tobacco Use Types Packs/Day Years [...] Name Priority Date/Time Associated Diagnosis Comments XR TIBIA FIBULA 2 VIEWS (LEFT) Routine 11/25/2024 12:10 PM EST Muscle strain of left lower leg, initial encounter documented in this encounter Results * XR Tibia Fibula 2 Views (Left) (11/25/2024 12:10 PM EST) Anatomical Region Laterality Modality Leg Left Computed Radiogr aphy 11/25/2024 1:14 PM EST Impressions 11/25/2024 1:15 PM EST Osseous demineralization. No acute fracture or dislocation. No lytic or blastic lesion. Minimal degenerative changes in the medial and patellofemoral compartments of the knee. Small plantar calcaneal enthesophyte. Mild soft tissue swelling along the medial aspect of the knee and proximal lower leg. Narrative 11/25/2024 1:15 PM EST XR TIBIA FIBULA 2 VIEWS (LEFT) Referring clinician's provided indication for this examination in [facility]: Trauma; TWISTED LEG YESTERDAY. PAIN PROXIMAL MEDIAL COMPARISON: None. Procedure Note Peter Abdalla MD - 11/25/2024 XR TIBIA FIBULA 2 VIEWS (LEFT) Referring clinician's provided indication for this examination in [facility]:Trauma; TWISTED LEG YESTERDAY. PAIN PROXIMAL MEDIAL COMPARISON: None. IMPRESSION: Osseous demineralization. No acute fracture or dislocation. No lytic orblastic lesion. Minimal degenerative changes in the medial andpatellofemoral compartments of the knee. Small plantar calcanealenthesophyte. Mild soft tissue swelling along the medial aspect of theknee and proximal lower leg. Amalia Christiansen TRAINING AND DEVELOPMENT DIRECTOR IMG XR LOWER EXTREMITY Kesha l Result documented in this encounter Visit Diagnoses Not on filedocumented in this encounter Care Teams Analysis Reporting Developer Relationship Specialty Start Date End Date Jeremías Shen MD [address] [place] [address] Dr GARDINER, LISSY [address] PCP - General Internal Medicine 06/22/19 documented as of this encounter Additional Source Comments The information contained in this document represents components of the legal health record. It is not the complete legal health record.[facility]
--- NOTE | ~2025-09-11 | CT_ITS ---
CLINICAL HISTORY: fall. head strike CT cervical spine without contrast Comparison: CT/[place]/SR - CT CERVICAL SPINE WITHOUT IV CONTRAST - 11/12/24 14:50 EST Findings: There is reversal of the cervical lordosis. There is osteopenia and degenerative changes. No acute fractures or dislocations. Visualized intracranial contents are unremarkable. No cervical fluid collections or masses. Lung apices are clear. IMPRESSION: No acute findings. This document has been electronically signed by: Douglas Anderson MD on 09/11/2025 14:17:10
--- NOTE | ~2025-09-11 | CT_ITS ---
CLINICAL HISTORY: fall injury with head strike w disorientation CT Brain without contrast Comparison: CT/[place] - CT HEAD WITHOUT IV CONTRAST - 11/12/24 14:50 EST FINDINGS: Cortical sulci: There is diffuse prominence of the cortical sulci compatible with age-related atrophy. Ventricles: Normal for age Brain parenchyma: There is patchy lucency throughout the deep white matter indicating chronic microvascular leukomalacia. Small lacunar infarcts of the basal ganglia. Encephalomalacia of the right occipital lobe. 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 No hemorrhage, mass effect, or acute findings identified. This document has been electronically signed by: Douglas Anderson MD on 09/11/2025 13:59:20
[2025-09-11 12:31] VITALS: BP 186/83; PULSE 74; RESP 20; TEMP 36.2; O2SAT 96; BMI 27.6
--- NOTE | 2025-09-11 12:32 | ED_ITS ---
HPI - Fall General Chief Complaint: Fall Stated Complaint: stroke/brain bleed? accident 15 days ago? [facility] Time Seen by Provider: 09/11/25 14:24 Source: patient and family Mode of arrival: ambulatory Limitations: no limitations History of Present Illness ED Provider: Sue Hernandez APRN HPI Narrative: 75 yo female with PMH of seizures, GERD, anxiety, depression here with complaints of disorientation (worsened from baseline) after a head injury 3-4 days ago from a slip and fall. Here with family. No AC therapy. Denies headache, neck pain, neck stiffness, vision changes, vomiting, abdominal pain, chest pain, numbness/tingling/weakness of the LE/UE. Related Data Home Medications ?Medication ?Instructions ?Recorded ?Confirmed amlodipine 5 mg tablet 1 tab PO DAILY 03/29/2107/18 lamotrigine 200 mg tablet 1 tab PO BID 03/29/21 pantoprazole 40 mg tablet,delayed 1 tab PO BID 1 08/04/25 release sertraline 50 mg tablet 50 mg PO QAM 10/21/23 alendronate 70 mg tablet 70 mg PO QWEEK 08/04/2507/18 Previous Rx's ?Medication ?Instructions ?Recorded walker #1 ea 10/29/21 Allergies Allergy/AdvReac Type Severity Reaction Status Date / Time codeine (CODEINE) Allergy Intermediate DELIRIUM Verified 09/11/25 12:32 Review of Systems 2 Review of Systems: Yes all other systems are reviewed and are negative Constitutional: Constitutional: Reports no additional constitutional complaints, Denies body ache(s), Denies chills, Denies fever(s), Denies headache(s) and Denies weakness Eyes: Eyes: Reports no additional eye complaints and Denies change in vision ENT: Reports system reviewed and no additional complaints, except as documented, Denies dizziness, Denies headache(s), Denies nasal congestion, Denies nasal discharge and Denies neck pain Cardiovascular: Cardiovascular: Reports no additional cardiovascular complaints, Denies chest pain, Denies leg edema and Denies dyspnea Respiratory: Respiratory: Reports no additional respiratory complaints, Denies cough and Denies dyspnea Gastrointestinal: Gastrointestinal: Reports no additional gastrointestinal complaints, Denies abdominal pain, Denies diarrhea, Denies nausea and Denies vomiting Genitourinary: Genitourinary: Reports no additional female genitourinary complaints and Denies urinary incontinence Musculoskeletal: Musculoskeletal: Reports no additional musculoskeletal complaints, Denies back pain, Denies arthralgias, Denies joint swelling, Denies neck pain, Denies numbness and Denies tingling Integumentary/Breasts: Skin/Breast: Reports system reviewed and no additional complaints, except as docu and Denies rash Neurologic: Reports system reviewed and no additional complaints, except as documented, Denies Abnormal speech present, Reports confusion, Denies dizziness, Denies headache(s), Denies numbness, Denies tingling and Denies weakness Psychiatric: Psychiatric: Reports confusion PMFSH Past Medical History Attestation statement: The following information was validated with the patient. Source: old records reviewed and nursing notes reviewed Medical History Achalasia Ataxia Seizures Short-term memory loss Depression Cerebral amyloid angiopathy Elevated cholesterol HTN (hypertension) Hx of osteoporosis Hx of irritable bowel syndrome GERD (gastroesophageal reflux disease) Surgical History Hx of parathyroidectomy History of esophagogastroduodenoscopy (EGD) H/O colonoscopy (~04/04/21) Family History Family History Mother No problems noted. Father No problems noted. Social History Social History Housing: House Alcohol intake: current Alcohol intake frequency: 0-2 drinks per day Alcohol type: wine Patient Tobacco Use Status: Never used Tobacco e-Cigarette/Vaping Use: Never Used Advance Directives Date on File: 10/22/23 Do you have a plan to hurt others: No Plan service: No Current occupational status: retired Current occupation: rt hand Cognitive needs: No Hearing needs: No Vision needs: Yes (reading glasses) Physical Exam 2 Vital Signs: Vital Signs: Last Vital Signs Temp 97.1 F 09/11/25 12:31 Pulse 74 09/11/25 12:31 Resp 20 09/11/25 12:31 BP 186/83 H 09/11/25 12:31 Pulse Ox 96 09/11/25 12:31 O2 Del Method Room Air 09/11/25 12:31 BMI result Body Mass Index 27.6 Const: General: confusion Orientation/consciousness: confusion L imitations: no limitations HEENT: Head: Yes normal to inspection, No Erickson's sign and No raccoon eyes Ears: hearing grossly normal bilaterally and TM's normal bilaterally General nose exam: Normal external nose present Face and sinus: Yes normal facial exam Mouth: Normal oral and palatal mucosa present Throat: Yes posterior oropharynx normal Eyes: General: appearance normal, both eyes and all related structures P upils: Equal, round and reactive pupils present Neck: Other: No cervical midline tenderness, step-offs or deformities Neck: Yes normal visual inspection, Yes full ROM, Yes no lymphadenopathy and Yes no meningeal signs Chest: Chest palpation & inspection: normal inspection of the chest Resp: Effort & Inspection: normal respiratory effort Auscultation: clear to auscultation bilaterally Cardio: Rate: regular rate Rhythm: regular rhythm Peripheral pulses: P eripheral pulses 2+ throughout GI: Inspection: Yes normal to inspection Palpation (GI): Soft to palpation and nontender Auscultation: normal bowel sounds Back/Spine/Pelvis: Thoracic/Lumbar Spine: thoracic and lumbar spine normal to inspection Skin: General skin exam: no rashes or lesions noted Neuro: General: moves all extremities, no meningeal signs and confusion C ranial nerves: Yes CN's II-XII intact bilaterally, Yes Equal, round and reactive pupils present, Yes Bilaterally intact EOM present, Yes Nystagmus not present, Yes Normal facial strength present and Yes Midline tongue present Cognition (Neuro): normal cognition Speech: No Abnormal speech present Gait exam (Neuro): Normal gait present Motor exam (neuro): 5/5 motor strength present throughout Sensory Exam: Normal double simultaneous stimulation for sensation Extrem: General: Yes normal to inspection NIH Stroke Scale Internal: Initial- Upon Arrival Level of Consciousness: Alert Level of Consciousness Questions: Answers both questions correctly Level of Consciousness Commands: Performs both tasks correctly Best Gaze: Normal Visual: No visual loss Facial Palsy: Normal Motor Arm (Right): No drift Motor Arm (Left): No drift Motor Leg (Right): No drift Motor Leg (Left): No drift Limb Ataxia: Absent Sensory: Normal Best Language: No aphasia Dysarthia: Normal Extinction and Inattention: No abnormality Score: 0 Course Course Course Narrative: Sue Hernandez ELECTROSTATIC POWDER COATING TECHNICIAN 09/11 0905 This is a rapid medical exam. Deferred additional HPI, ROS, PE to primary provider. 75 yo female with PMH of seizures, GERD, anxiety, depression here with complaints of disorientation (worsened from baseline) after a head injury 3-4 days ago from a slip and fall. Here with family. No AC therapy. 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 No hemorrhage, mass effect, or acute findings identified. Reviewed findings with the patient and her son. She may have a concussion. She is tolerating p.o.. No focal neurological deficits. Recommend concussion care at home and follow up outpatient with primary care doctor. Reviewed worrisome signs and symptoms of when to return to the emergency room. Comfortable with discharge home Medical Decision Making Medical Decision Making [facility] Narrative: 75 yo female with PMH of seizures, GERD, anxiety, depression here with complaints of disorientation (worsened from baseline) after a head injury 3-4 days ago from a slip and fall. Here with family. No AC therapy. Denies headache, neck pain, neck stiffness, vision changes, vomiting, abdominal pain, chest pain, numbness/tingling/weakness of the LE/UE. Family describes the patient having some difficulty with short-term memory. She does have trouble with short-term memory loss after having previous brain bleeds. But they feel that she has some slight more confusion than baseline. No other additional complain. Normal neuro exam no focal deficits They would like a CT scan of her head to rule out a brain bleed I ordered a CT head and cervical spine and labs Differential Diagnosis Differential Diagnoses: The differential diagnosis associated with the presentation includes Concussion, ICH, basilar skull Admission/Observation Consideration of admission/observation: Escalation of care including admission/observation considered Lab Data [facility] Lab Attestation statement: I reviewed the patient's lab results. 09/11/25 12:49 09/11/25 12:49 Labs: Lab Results 09/11/25 Range/Units 12:49 WBC 6.0 (4.8-10.8) X10*3/uL RBC 4.59 (4.20-5.50) X10*6/uL Hgb 12.2 (12.0-16.0) g/dl Hct 38.9 (37.0-47.0) % MCV 84.7 (80.0-98.0) fL MCH 26.6 L (27.0-33.0) pg MCHC 31.4 (31.0-35.0) g/dl RDW 15.3 (11.0-16.0) % Plt Count 224 (160-400) X10*3/uL MPV 9.5 (9.4-12.3) fL Immature Gran % (Auto) 0.3 (0.0-0.4) % Neut % (Auto) 60.8 (45-73) % Lymph % (Auto) 27.4 (20-40) % Taliaferro % (Auto) 7.6 (2-11) % Eos % (Auto) 2.7 (0-4) % Baso % (Auto) 1.2 (0-2) % Lymph # (Auto) 1.7 (1.2-4.9) X10*3/uL Taliaferro # (Auto) 0.5 (0.1-1.2) X10*3/uL Eos # (Auto) 0.2 (0.0-0.4) X10*3/uL Baso # (Auto) 0.1 (0.0-0.2) X10*3/uL Abs Immat Gran (auto) 0.02 (0.00-0.03) X10*3/uL Absolute Neuts (auto) 3.7 (2.0-8.3) x10*3/uL Absolute Nucleated RBC 0.000 (0.0-0.012) X10*3/uL Nucleated RBC % (auto) 0.0 (0.0-0.2) /100WBC Sodium 144 (135-145) mmol/L Potassium 4.7 (3.3-5.1) mmol/L Chloride 110 H (96-108) mmol/L Carbon Dioxide 27 (22-29) mmol/L Anion Gap 12 (12-20) BUN 15 (9-16) mg/dL Creatinine 1.16 (0.5-1.4) mg/dL Estim Creat Clear Calc 41.0 Estimated GFR 46 Random Glucose 107 (60-115) mg/dL Calcium 9.0 (8.4-10.2) mg/dL Total Bilirubin 0.2 (0.0-1.0) mg/dL Direct Bilirubin < 0.2 (0.0-0.5) mg/dL AST 22 (5-31) U/L ALT 15 (0-31) U/L Alkaline Phosphatase 78 (39-117) U/L Total Protein 7.3 (6.5-8.0) g/dL Albumin 4.5 (3.5-5.0) g/dL Independent Interpretation I performed an independent interpretation of an: CT Scan Interpretation: I independently viewed the CT scan agree with the radiology report Radiology Impression Discussion of test interpretation with radiology: I have reviewed the radiologist's reading. Radiologist Impression: [place] [address] CT Scan Report Signed Patient: Annika Hammond MR#: [id number] : 1950 Acct:[id number] Age/Sex: 75 / F ADM Date: 09/11/25 Loc: HO.ED Attending Dr: Ordering Physician: Sue Hernandez NP Date of Service: 09/11/25 Procedure(s): CT cervical spine wo IV con Accession Number(s): [id number] cc: Sue Hernandez NP; Sue Junior~ Report Number: [id number]: Total DLP = 789.00 mGy-cm Reason for Exam: fall. head strike CLINICAL HISTORY: fall. head strike CT cervical spine without contrast Comparison: CT/RI/SR - CT CERVICAL SPINE WITHOUT IV CONTRAST - 11/12/24 14:50 EST Findings: There is reversal of the cervical lordosis. There is osteopenia and degenerative changes. No acute fractures or dislocations. Visualized intracranial contents are unremarkable. No cervical fluid collections or masses. Lung apices are clear. IMPRESSION: No acute findings. This document has been electronically signed by: Douglas Anderson MD on 09/11/2025 14:17:[address] [address] [address] Scan Report Signed Patient: Annika Hammond MR#: [id number] : 1950 Acct:[id number] Age/Sex: 75 / F ADM Date: 09/11/25 Loc: HO.ED Attending Dr: Ordering Physician: Sue Hernandez NP Date of Service: 09/11/25 Procedure(s): CT head/brain wo IV con Accession Number(s): [id number] cc: Sue Hernandez NP; Sue Junior~ Report Number: [id number]: Total DLP = 0.00 mGy-cm Reason for Exam: fall injury with head strike w/ disorientation CLINICAL HISTORY: fall injury with head strike w disorientation CT Brain without contrast Comparison: CT/RI/SR - CT HEAD WITHOUT IV CONTRAST - 11/12/24 14:50 EST FINDINGS: Cortical sulci: There is diffuse prominence of the cortical sulci compatible with age-related atrophy. Ventricles: Normal for age Brain parenchyma: There is patchy lucency throughout the deep white matter indicating chronic microvascular leukomalacia. Small lacunar infarcts of the basal ganglia. Encephalomalacia of the right occipital lobe. 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 No hemorrhage, mass effect, or acute findings identified. This document has been electronically signed by: Douglas Anderson MD on 09/11/2025 13:59:20 Independent Historian Clinical information obtained from an independent historian. History obtained from or confirmed by: Other (Son) Discharge Plan Discharge Clinical Impression: Concussion without loss of consciousness Patient Disposition: Home, Self-Care Instructions: Concussion (ED) Additional Instructions: Get plenty of rest Limit screen time Follow up with her primary care doctor Prescriptions: No Action lamotrigine 200 mg tablet 1 tab PO BID amlodipine 5 mg tablet 1 tab PO DAILY pantoprazole 40 mg tablet,delayed release (DR/EC) 1 tab PO BID (DEMETRICE) yash Counts [facility] See Rx Instructions .Route Qty: 1 0RF Rx Instructions: As directed sertraline 50 mg tablet 50 mg PO QAM alendronate 70 mg tablet 70 mg PO QWEEK Referrals: Sue Junior PA [Primary Care Provider, Internal Medicine] Print Language: Liberian
[2025-09-11 13:01] LABS: MANUAL DIFF FLAG NO
[2025-09-11 13:04] LABS: Hematocrit 38.9 % (37.0-47.0); Hemoglobin 12.2 g/dl (12.0-16.0); Imm Gran Abs Auto 0.02 X10*3/uL (0.00-0.03); Imm Gran Pct Auto 0.3 % (0.0-0.4); Lymphocytes Absolute Auto 1.7 X10*3/uL (1.2-4.9); Mean Corpuscular HGB Conc 31.4 g/dl (31.0-35.0); Mean Corpuscular Hemoglobin 26.6 pg (27.0-33.0); Mean Corpuscular Volume 84.7 fL (80.0-98.0); NRBC Abs Auto 0.000 X10*3/uL (0.0-0.012); NRBC Pct Auto 0.0 /100WBC (0.0-0.2); Platelet Count 224 X10*3/uL (160-400); Red Blood Count 4.59 X10*6/uL (4.20-5.50); White Blood Count 6.0 X10*3/uL (4.8-10.8)
[2025-09-11 13:19] LABS: Alanine Aminotransferase 15 U/L (0-31); Albumin Level 4.5 g/dL (3.5-5.0); Alkaline Phosphatase 78 U/L (39-117); Anion Gap 12 (12-20); Aspartate Amino Transferase 22 U/L (5-31); Blood Urea Nitrogen 15 mg/dL (9-16); Calcium 9.0 mg/dL (8.4-10.2); Carbon Dioxide 27 mmol/L (22-29); Chloride 110 mmol/L (96-108); Creatinine Clr Calc Pharmacy 41.0; Estimated Glomerular Filt Rate 46; Potassium 4.7 mmol/L (3.3-5.1); Sodium 144 mmol/L (135-145); Total Protein 7.3 g/dL (6.5-8.0)
--- OUTSIDE RECORDS SUMMARY | 2025-09-11 14:36 | XMS_ITS | Encounter Summary ---
Author Organization [facility] Address [address] [facility] [address] [place] [phone] Phone Care Team Providers Care Soccer Player Name Role Phone Jeremías Shen MD Primary Care Provider Encounter Details Date Type Department Care Team (Late st Contact Info) Description 01/24/2023 Ancillary Orders [facility] [place] [facility] Imaging EDW[address] [place] [address] Sabina Olivera MD [phone] [place] [address] [email or web address] subject Social History Tobacco Use Types Packs/Day Years Used Date Smoking Tobacco: Never Assessed Comments Unknown Sex and Gender Information Value Date Recorded Sex Assigned at Female 04/10/2022 1:50 PM EDT Legal Sex Female 10:02 PM EDT Gender Identity Female 04/10/2022 1:50 PM EDT Sexual Orientation Straight 04/10/2022 1: 50 PM EDT documented as of this encounter Plan of Treatment Not on file documented as of this encounter Visit Diagnoses Diagnosis Research subject documented in this encounter Care Teams Soccer Player Relationship Specialty Start Date End Date Jeremías Shen MD [address] [place] [address] [place] [address] PCP - General Internal Medicine 06/22/19 documented as of this encounter Additional Source Comments The information contained in this document represents components of the legal health record. It is not the complete legal health record.[facility]
--- OUTSIDE RECORDS SUMMARY | 2025-09-11 14:36 | XMS_ITS | Encounter Summary ---
Author Organization [facility] Address [address] [place] [address] Phone Care Team Providers Care Cross Tie Cutter Name Role Phone Jeremías Shen MD Primary Care Provider Encounter Details Date Type Department Care Team (Late st Contact Info) Description 09/01/2019 Procedure Pass [facility] [address] [place] [address] Social History Tobacco Use Types Packs/Day Years [...] documented as of this encounter Visit Diagnoses Not on filedocumented in this encounter Care Teams Cross Tie Cutter Relationship Specialty Start Date End Date Jeremías Shen MD [address] [place] [address] [place] [address] PCP - General Internal Medicine 06/22/19 documented as of this encounter Additional Source Comments The information contained in this document represents components of the legal health record. It is not the complete legal health record.[facility]
--- OUTSIDE RECORDS SUMMARY | 2025-09-11 14:36 | XMS_ITS | Encounter Summary ---
Author Organization [facility] Address [address] [place] [phone] Phone Care Team Providers Care Social Services Analyst Name Role Phone Jeremías Shen MD Primary Care Provider Encounter Details Date Type Department Care Team (Late st Contact Info) Description 09/01/2019 Procedure Pass [facility] [address] [place] [address] Social History Tobacco Use Types Packs/Day Years [...] on filedocumented in this encounter Care Teams Social Services Analyst Relationship Specialty Start Date End Date Jeremías Shen MD [address] [place] [address] [place] [address] PCP - General Internal Medicine 06/22/19 documented as of this encounter Additional Source Comments The information contained in this document represents components of the legal health record. It is not the complete legal health record.[facility]
--- OUTSIDE RECORDS SUMMARY | 2025-09-11 14:36 | XMS_ITS | Patient Health Record ---
Author Organization [facility] Address [address] [place] [address] Care Team Providers Care Leaded Glass Installer Name Role Phone Ac (RETIRED) Jeremías JERRY Primary Care Provider Unavailable Alfred Tellez Jr Unavailable [phone] Allergies Allergen (clinical drug ingredient) Drug/Non Drug Allergy documented on EMR Reaction Allergy Type Onset Date Status codeine Codeine Sulfate Unknown Drug Allergy A ctive Reason For Referral No Information Medications Medication SIG (Take, Route, Frequency, Duration) Notes Start Date End Date Status amLODIPine Besylate 5 MG TAKE 1 TABLET B Y MOUTH EVERY DAY Oral; Duration: 30 Active lamoTRIgine 150 1 tablet Orally Twic e a day Active Omeprazole 10 MG 2 capsules Orally On ce a day; Duration: 30 day(s) Active Sertraline HCl 50 MG 1 tablet Orally Onc e a day Active MiraLax (colon prep) 8.3 ounce ((238) grams mixed with Gatorade or Crystal Light orally begin at 5:00 p.m. the day before the procedure; Duration: 1 day 03/08/2021 Active Immunizations Vaccine Route [...] Problem Status W/U Status Risk Notes Problem Colon cancer screening (138828544) Colon cancer screening (Z12.11) Active confirmed Problem Gastroesophageal reflux disease without esophagitis (807516435) Gastroesophageal reflux disease without esophagitis (K21.9) Active confirmed Problem Gastroesophageal reflux disease with esophagitis (disorder) (481100989) GERD with esophagitis (K21.0) Active confirmed Problem Computed tomography result abnormal (130996165) Abnormal CT scan, colon (R93.3) Active confirmed Plan Of Treatment Future Test Test Name Order Date UPPER GI ENDOSCOPY 07/16/2017 COLONOSCOPY 07/16/2017 UPPER GI ENDOSCOPY 01/12/2020 COLONOSCOPY 01/12/2020 UPPER GI ENDOSCOPY 03/08/2021 COLONOSCOPY 03/08/2021 Insurance Providers Payer Name Payer Address Payer Phone Subscriber Number Group Number Insured Name Patient Relationship to Insured Coverage Start Date Coverage End Date MEDICARE OF [place] [address] [place] [address] [id number] BRADLEY HARP Self - patient is the insured [facility] SUPPLEMENTAL PLAN [address] [place] [address] [phone] [id number] BRADLEY HARP Self - patient is the insured Medical (General) History Medical History History ICD Code gastroesophageal reflux disease subarachnoid bleed x4 visually impaired hx of stroke colon polyps Surgical History Surgery Date(Month/Year) hysterectomy reconstruction surgery to try and get pr egnant bladder suspension appendectomy parathyroidectomy
--- OUTSIDE RECORDS SUMMARY | 2025-09-11 14:36 | XMS_ITS | Encounter Summary ---
Author Organization [facility] Address [address] [place] [address] Phone Care Team Providers Care Mountain Guide Name Role Phone Jeremías Shen MD Primary Care Provider Encounter Details Date Type Department Care Team (Late st Contact Info) Description 09/01/2019 Procedure Pass Located Within [facility] Imaging [address] [place] [address] Social History Tobacco Use Types Packs/Day Years [...] on filedocumented in this encounter Care Teams Mountain Guide Relationship Specialty Start Date End Date Jeremías Shen MD [address] [place] [address] [place] [address] PCP - General Internal Medicine 06/22/19 documented as of this encounter Additional Source Comments The information contained in this document represents components of the legal health record. It is not the complete legal health record.[facility]
--- OUTSIDE RECORDS SUMMARY | 2025-09-11 14:36 | XMS_ITS | Encounter Summary ---
Author Organization [facility] Address [address] [facility] [address] [place] [address] Phone Care Team Providers Care Material Requisitioner Name Role Phone Jeremías Shen MD Primary Care Provider Encounter Details Date Type Department Care Team (Late st Contact Info) Description 01/24/2023 Ancillary [place] [facility] [place] [place] EDW[address] [place] [address] Sabina Olivera MD [address] [place] [address] [email or web address] Research subject Social History Tobacco Use Types [...] subject documented in this encounter Care Teams Material Requisitioner Relationship Specialty Start Date End Date Jeremías Shen MD [address] [place] [address] [place] [address] PCP - General Internal Medicine 06/22/19 documented as of this encounter Additional Source Comments The information contained in this document represents components of the legal health record. It is not the complete legal health record.[facility]
--- OUTSIDE RECORDS SUMMARY | 2025-09-11 14:36 | XMS_ITS | Encounter Summary ---
Author Organization [facility] Address [address] [place] [address] Phone Care Team Providers Care Yarder Boss Name Role Phone Jeremías Shen MD Primary Care Provider Encounter Details Date Type Department Care Team (Late st Contact Info) Description 01/24/2023 Ancillary Orders [facility] Department of Neurology [address] [place] [address], 7th Floor, [address] [place] [address] Sabina Olivera MD [address] [place] [address] [address] [place] [address] [email or web address] Social History Tobacco Use Types Packs/Day Years [...] on filedocumented in this encounter Care Teams Yarder Boss Relationship Specialty Start Date End Date Jeremías Shen MD [address] [place] [address] [place] [address] PCP - General Internal Medicine 06/22/19 documented as of this encounter Additional Source Comments The information contained in this document represents components of the legal health record. It is not the complete legal health record.[facility]
--- OUTSIDE RECORDS SUMMARY | 2025-09-11 14:37 | XMS_ITS | Patient Health Record ---
Author Organization [facility] Address [address] [facility] [place] [address] Care Team Providers Care Power Plant Mechanic Name Role Phone Ac JERRY, Jeremías Primary Care Provider Unavailab Reza Bartlett Unavailable [phone] Allergies Allergen (clinical drug ingredient) Drug/Non Drug Allergy documented on EMR Reaction Allergy Type Onset Date Status sulfa Unknown Drug Allergy Active codeine Codeine Unknown Drug Allergy Active Reason For Referral No Information Medications Medication SIG (Take, Route, Frequency, Duration) Notes Start Date End Date Status Aleve Active Prevacid Active Problems Problem Type SNOMED Code ICD Code Onset Dates Problem Status W/U Status Risk Notes Problem Arthralgia (82820350) Arthralgia (719.40) Active confirmed Problem Disorder of joint of ankle and/or foot (624352759) Arthritis - Degenerative (719.97) Active confirmed Problem Contusion of foot (32335033) Contusion of foot (924.20) Active confirmed Plan Of Treatment No Information Insurance Providers Payer Name Payer Address Payer Phone Subscriber Number Group Number Insured Name Patient Relationship to Insured Coverage Start Date Coverage End Date [facility] [address] [facility] [address] [phone] [id number] Annika Hammond Self - patient is the insured Medical (General) History Medical History History ICD Code Chicken pox Transfusions Reflux Surgical History Surgery Date(Month/Year) hysterectomy bladder surgery
--- OUTSIDE RECORDS SUMMARY | 2025-09-11 14:37 | XMS_ITS | Encounter Summary ---
Author Organization [facility] Address [address] [place] [address] Phone Care Team Providers Care Brief Writer Name Role Phone Jeremías Shen MD Primary Care Provider Encounter Details Date Type Department Care Team (Late st Contact Info) Description 09/01/2019 Procedure Pass [facility] Imaging [address] [place] [address] Social History Tobacco Use Types Packs/Day Years [...] on filedocumented in this encounter Care Teams Brief Writer Relationship Specialty Start Date End Date Jeremías Shen MD [address] [place] [address] [place] [address] PCP - General Internal Medicine 06/22/19 documented as of this encounter Additional Source Comments The information contained in this document represents components of the legal health record. It is not the complete legal health record.[facility]
--- OUTSIDE RECORDS SUMMARY | 2025-09-11 14:37 | XMS_ITS | Clinical Summary ---
Author Organization [facility] Address [address] [place] [address] Phone Care Team Providers Care Kick Plate Installer Name Role Phone Jeremías Shen MD Primary Care Provider Allergies Active Allergy Reactions Criticality Noted Date Comments Codeine Nausea and/or Vomiting,Unknown 11/02/2024 Other Reaction(s): hullicination, vomiting Sulfa (Sulfonamide Antibiotics) 11/02/2024 Other Reaction(s): ITCHING RASH Sulfamethoxazole-Tri methoprim 11/02/2024 Other Reaction(s): ITCHING RASH Medications acetaminophen (TYLENOL) 500 MG tablet Take 500 mg by mouth every 6 (six) hours as needed. Active alendronate (FOSAMAX) 70 MG tablet 4 Active amLODIPine (NORVASC) 5 MG tablet Take 5 mg by mouth daily. Active amLODIPine-ator vastatin (CADUET) 10-10 mg per tablet Active lamoTRIgine (LAMICTAL) 200 MG IMMEDIATE release tablet Take 1 tablet by mouth 2 (two) times a day. 4 Active omeprazole (PRILOSEC) 10 MG capsule 2 capsules Orally Once a day for 30 day(s) Active pantoprazole (PROTONIX) 40 MG tablet Take 1 tablet by mouth 2 (two) times a day. 4 Active sertraline (ZOLOFT) 25 MG tablet 4 Active sertraline (ZOLOFT) 50 MG tablet Take 50 mg by mouth every morning. Active minocycline (MINOCIN) 100 MG capsule Take 1 capsule (100 mg total) by mouth 2 (two) times a day. 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 Encounters Date Type Department Care Team Description 08/24/2025 4:00 PM EDT Office [place] [facility] [place] [address] [place] [address], [address], [address] [place] [address] Aleksander Galvin MD, PhD Cerebral amyloid angiopathy (Primary Dx); Mild cognitive impairment from Last 3 Months Social History Tobacco Use Types Packs/Day Years Used Date Smoking Tobacco: Former Cigarettes Smokeless Tobacco: Never Tobacco Cessation:Counseling Given: Not Answered Education Answer Date Recorded Are you interested [...] Orientation Straight 04/10/2022 1: 50 PM EDT Last Filed Vital Signs Vital Sign Reading Time Taken Comments Blood Pressure 129/79 11/25/2024 11:39 AM EST Pulse 85 11/25/2024 11:39 AM EST Temperature 36.6 C (97.9 F) 11/25/2024 11:39 AM EST Respiratory Rate 16 11/25/2024 11:39 AM EST Oxygen Saturation 95% 11/25/2024 11:39 AM EST Inhaled Oxygen Concentration - - Weight - - Height - - Body Mass Index - - Plan of Treatment Health Maintenance Due Date Last Done Comments Adult Td,Tdap Booster 1950 LIPID PANEL 1950 DEPRESSION SCREENING 1962 SMOKING Hx and SMOKELESS TOBACCO SCREENING 1963 HEPATITIS C SCREENING 1968 COLOGUARD 1995 COLONOSCOPY 1995 COLORECTAL CANCER SCREENING 1995 FIT TEST 1995 FOBT 1995 SIGMOIDOSCOPY 1995 VIRTUAL COLONOSCOPY 1995 OSTEOPOROSIS SCREENING INITIAL (ONE-TIME) 2015 INFLUENZA VACCINE (#1) 2025 , 09/16/2023, 09/30/2022, Additional history exists COVID-19 VACCINE ( season) 2025 04/02/2023, 09/07/2021, 02/16/2021, Additional history exists ZOSTER VACCINES Completed 08/16/2021, 10/30/2020 PNEUMOCOCCAL VACCINES (50+ years) Completed 09/30/2022, 01/23/2020 RSV VACCINE Completed 09/16/2023 HEPATITIS A VACCINES Aged Out No long er eligible based on patient's age to complete this topic HIB VACCINES Aged Out No longer eligi ble based on patient's age to complete this topic MENINGOCOCCAL VACCINES (ACWY) Aged Out No longer eligible based on patient's age to complete this topic MENINGOCOCCAL VACCINES (B) Aged Out N o longer eligible based on patient's age to complete this topic Medical Devices Not on file Insurance MEDICARE PART A & B [facility] MEDICARE SUPPLEMENT MEDICARE PART A & B [facility] MEDICARE SUPPLEMENT MEDICARE PART A & B MEDICARE SUPPLEMENT MEDICARE PART A & B MEDICARE SUPPLEMENT MEDICARE PART A & B Member Subscriber Plan / Payer (Ef fective 2015-Present) Name:Annika Hammond Member ID:[id number] Relation to Subscriber:Self Name:Annika Hammond Subscriber ID:[id number] Payer ID:[id number] Group ID:Not on file Type:Medicare Address: [employer] [address] MEDICARE SUPPLEMENT MEDICARE PART A & B [id number] [place] [address] MEDICARE SUPPLEMENT MEDICARE PART A & B MEDICARE SUPPLEMENT MEDICARE PART A & B Member Subscriber Plan / Payer (Ef fective 2015-Present) Name:Annika Hammond Member ID:[id number] Relation to Subscriber:Self Name:Annika Hammond Subscriber ID:[id number] Payer ID:[id number] Group ID:Not on file Type:Medicare Address: [employer] [address] [place] [address] [place] [address] MEDICARE SUPPLEMENT MEDICARE PART A & B [facility] MEDICARE SUPPLEMENT Care Teams Kick Plate Installer Relationship Specialty Start Date End Date Jeremías Shen MD [address] [place] [address] [place] [address] PCP - General Internal Medicine 06/22/19 Additional Source Comments The information contained in this document represents components of the legal health record. It is not the complete legal health record.[facility]
--- OUTSIDE RECORDS SUMMARY | 2025-09-11 14:37 | XMS_ITS | Encounter Summary ---
Author Organization [facility] Address [address] [place] [address] Phone Care Team Providers Care Composite Assembler Name Role Phone Jeremías Shen MD Primary Care Provider Reason for Referral * Consultation (Elective) - Closed Specialty Diagnoses / Procedures Referred By Contac t Referred To Contact Neurology Diagnoses Cerebral artery occlusion with cerebral infarction System, Provider Not In, [facility] [address] [address] Phone: tel: Referral ID Status Reason Start Date Expiration Date Visits Re quested Visits Authorized [id number] Closed 08/04/2019 08/04/2020 1 1 Encounter Details Date Type Department Care Team (Latest Contact Info) Description 08/04/2019 Transcribe Orders [facility] [place] Department of Neurology [address] [place] [address], 8th Floor, [address] [place] [address] System, Provider Not In, [place] [address] Cerebrovascular accident (CVA), unspecified mechanism (Primary Dx); Cerebral artery occlusion with cerebral infarction Social History Tobacco Use Types Packs/Day Years Used Date Smoking Tobacco: Never Assessed Comments Unknown Sex and Gender Information Value Date Recorded Sex Assigned at Female 04/10/2022 1:50 PM EDT Legal Sex Female 10:02 PM EDT Gender Identity Female 04/10/2022 1:50 PM EDT Sexual Orientation Straight 04/10/2022 1: 50 PM EDT documented as of this encounter Plan of Treatment Scheduled Referrals Name Type Priority Associated Diagnoses Order Schedule Ambulatory referral to [facility] [place] Neurology Outpatient Referral Routine Cerebral artery occlusion with cerebral infarction Ordered: 08/04/2019 documented as of this encounter Visit Diagnoses Diagnosis Cerebrovascular accident (CVA), unspecified mechanism- Primary Cerebral artery occlusion with cerebral infarction Unspecified cerebral artery occlusion with cerebral infarction documented in this encounter Care Teams Composite Assembler Relationship Specialty Start Date End Date Jeremías Shen MD [address] [place] [address] [place] [address] PCP - General Internal Medicine 06/22/19 documented as of this encounter Additional Source Comments The information contained in this document represents components of the legal health record. It is not the complete legal health record.[facility]
[2025-09-11 14:47] VITALS: BP 186/83; PULSE 74; RESP 20; TEMP 36.2; O2SAT 96
== END 2025-09-11 14:48 | disposition home or self-care (01) ==
PROVIDERS: Nurse Practitioner Family; Emergency Provider Emergency Medicine Emergency Medical Services; PCP Physician Assistant Medical
DX: S06.0X0A Concussion without loss of consciousness, initial encounter (principal); R41.0 Disorientation, unspecified; R51.9 Headache, unspecified; M54.2 Cervicalgia; X58.XXXA Exposure to other specified factors, initial encounter; Y93.9 Activity, unspecified; Y92.9 Unspecified place or not applicable; Y99.8 Other external cause status; Z79.899 Other long term (current) drug therapy
CPT/HCPCS: 36415; 70450; 72125; 80048; 80076; 85025; 99282; 99284

== ENCOUNTER → 2025-09-11 12:33 | Outpatient (BNV) | payer MEDICARE, SELFPAY | PROVIDERS: PCP Physician Assistant Medical; Visit Provider Nuclear Medicine | DX: S09.90XA Unspecified injury of head, initial encounter (principal); R41.0 Disorientation, unspecified; W18.39XA Other fall on same level, initial encounter | CPT/HCPCS: 70450; 72125 ==